=== PATIENT | female | born 1980 | race Caucasian/White ===

== ENCOUNTER 2020-04-15 07:08 | Day surgery (SDC) | payer OTHER ==
[2020-04-11 15:31] LABS: Absolute Lymphocytes (CBC) 3.6 K/uL (0.7-4.9); Basophils % 0.5 % (0-1.3); Hematocrit 40.5 % (36.0-45.0); Lymphocytes % 43.6 % (15.3-44.8); MPV 9.5 fL (7.6-11.3); RBC Red Blood Cell Count 4.53 M/uL (3.86-4.86)
[2020-04-11 15:51] LABS: Urine Appearance CLEAR; Urine Bilirubin NEGATIVE (NEG); Urine Blood 1+ (NEG); Urine Color YELLOW; Urine Glucose NEGATIVE (NEG); Urine Protein NEGATIVE (NEG); Urine Urobilinogen 0.2 mg/dL (0.2-1.0); Urine pH 6.5 (5.0-7.0)
[2020-04-11 15:55] LABS: Urine Microscopic Reflex ORDER UMIC
[2020-04-11 17:52] LABS: Urine Bacteria <20 /HPF (<20); Urine Culture Reflex Order NOT NEEDED; Urine RBC <5 /HPF (NONE SEEN)
--- OUTSIDE RECORDS SUMMARY | 2020-04-15 07:11 | XMS REPORT | Clinical Summary ---
:1980 Author Organization [facility] Address [address] [place] [address] Care Team Providers Name Role Phone Unavailable Primary Care Provider Unavailable Allergies Active Allergy Reactions Severity Noted Date Comments Ceftriaxone Anaphylaxis High 09/25/2013 Hydrocodone-Acetaminophen Shortness Of Breath High 10/31/19 20 Throat tightening Medications Medication Sig Dispensed Refills Start Date End Date Status citalopram (CELEXA) 20 Take 20 mg by 0 Active MG tablet mouth daily. fexofenadine HCl Take by mouth. 0 Active (JASS ORAL) cholecalciferol, Take by mouth. 0 Active vitD3,/vit K2 (VITAMIN D3-VITAMIN K2 ORAL) pantoprazole (PROTONIX) Take 1 tablet (40 60 tablet 3 11/29/19 20 Active 40 MG tablet mg total) by mouth daily. Active Problems Not on file Encounters Date Type Specialty Care Team Description 02/13/2020 Hospital Encounter Radiology Nestor Zimmerman, Abdom inal romel DEVINE 11/29/2019 Anesthesia Event Magalys Mayers CRNA 11/29/2019 Surgery Nestor Zimmerman, COLONOSCOPY ,POLYPECT MD WERNRE 11/29/2019 Hospital Encounter Nestor Zimmerman MD 11/26/2019 Hospital Encounter Pre-Admission Testing 11/02/2019 Outside Orders Central Scheduling Nestor Zimmerman Abd ominal romel DEVINE (Primary Dx) after 04/15/2019 Social History Tobacco Use Types Packs/Day Years Used Date Current Some Day Smoker Smokeless Tobacco: Never Used Comments: off and on since age 17, no oc casional Alcohol Use Drinks/Week oz/Week Comments Yes occasionally Sex Assigned at Date Recorded Not on file Job Start Date Occupation Industry Not on file Not on file Not on file Travel History Travel Start Travel End No recent travel history available. Last Filed Vital Signs Vital Sign Reading Time Taken Blood Pressure 103/59 11/29/2019 2:30 PM [employer] Pulse 65 11/29/2019 2:30 [facility] [employer] Temperature 37 C (98.6 F) 11/29/2019 2:00 PM [employer] Respiratory Rate 15 11/29/2019 2:30 PM [employer] Oxygen Saturation 100% 11/29/2019 2:30 PM [employer] Inhaled Oxygen Concentration - - Weight 91.6 kg (202 lb) 11/29/2019 12:32 PM [employer] Height 160 cm (5' 3") 11/29/2019 12:32 PM [employer] Body Mass Index 35.78 11/29/2019 12:32 PM [employer] Plan of Treatment Not on file Procedures Procedure Name Priority Date/Time Associated Diagnosis Comme nts CT ABDOMEN/PELVIS Routine 02/13/2020 10:55 Abdominal bloating Results for this WITH IV CONTRAST AM CDT procedure a re in the results section. REPORT OF 11/29/2019 1:58 PROCEDURE - PM [facility] ENDOSCOPY URL REPORT OF 11/29/2019 1:36 PROCEDURE - PM [facility] ENDOSCOPY URL TISSUE EXAM AP Routine 11/29/2019 1:23 Results for this PM [employer] [facility] procedure are i n the results section. UPPER 11/29/2019 1:00 Generalized ENDOSCOPY,BIOPSY [facility] [employer] [facility] abdominal pain COLONOSCOPY,POLYPE 11/29/2019 1:00 Generalized CTOMY PM [facility] [facility] abdominal pain after 04/15/[address] Abdomen/Pelvis with IV Contrast (02/13/2020 10:55 AM CDT) Specimen Narrative Performed At Addendum Begins [facility] REPORT STATUS:A Addendum: The study was was performed as CT entero graphy. The fluid noted in the small and large bowel is normal and not indicating enterocolitis. Signed: Kp Stark MD Report Verified Date/Time:02/13/2020 12:33:09 Reading Location: [facility] B1 C013Y CT Body R eading Room Addendum Ends FINAL REPORT ABDOMINAL AND PELVIS CT DATED 02/13/2020 CLINICAL INFORMATION:Abdominal bloat ing TECHNIQUE:Axial images of the abdome n and pelvis were obtained from diaphragm to the pubic symphysis with in travenous contrast. This exam was performed according to our departmental dose-optimization program, which include s automated exposure control, adjustment of the mA and/or kV according to patient size and/or use of interactive reconstruction technique. COMMENT: Liver and spleen are normal in size. There is diffusely decreased attenuation in the liver sugge stive fatty hepatic infiltrate. 3 cysts as seen in the segme nt 2 of the liver measuring up to 1.4 x 1.7 cm. Gallbladder is contr acted. No gallstone or biliary dilatation is noted. Pancreas and adrenals are unremarkable. Both kidneys are normal in size and func tioning. No hydronephrosis, hydroureter, urolithiasis is seen. Fluid-filled small and large bowel loops are seen in the abdomen and pelvis suggestive of enterocolitis. No s mall or large bowel dilatation or wall thickening is apparen t. Appendix is normal in caliber. The uterus is normal in size. A 5.3 x 4. 9 cm mass is seen in the left lateral wall of the uterus suggestive of subserosal fibroid. Both ovaries are unremarkable. No mass, adenopathy or ascites is presen t. IMPRESSION: 1. Findings suggestive of enterocolitis. 2. Uterine leiomyoma. 3. Fatty hepatic infiltrate with liver c ysts. Signed: Kp Stark MD Report Verified Date/Time:02/13/2020 12:11:20 Reading Location: [facility] C013Y CT Body R ding Room Procedure Note Interface, External Ris In - 02/13/2020 12:36 PM CDT Addendum Begins REPORT STATUS:A Addendum: The study was was performed as CT entero graphy. The fluid noted in the small and large bowel is normal and not indicating enterocolitis. Signed: Kp Stark MD Report Verified Date/Time: 02/13/2020 1 2:33:09 Reading Location: [facility] B1 C013Y CT Body R eading Room Addendum Ends FINAL REPORT ABDOMINAL AND PELVIS CT DATED 02/13/2020 CLINICAL INFORMATION: Abdominal bloatin g TECHNIQUE: Axial images of the abdomen and pelvis were obtained from diaphragm to the pubic symphysis with in travenous contrast. This exam was performed according to our departmental dose-optimization program, which include s automated exposure control, adjustment of the mA and/or kV according to patient size and/or use of interactive reconstruction technique. COMMENT: Liver and spleen are normal in size. There is diffusely decreased attenuation in the liver sugge stive fatty hepatic infiltrate. 3 cysts as seen in the segme nt 2 of the liver measuring up to 1.4 x 1.7 cm. Gallbladder is contr acted. No gallstone or biliary dilatation is noted. Pancreas and adrenals are unremarkable. Both kidneys are normal in size and func tioning. No hydronephrosis, hydroureter, urolithiasis is seen. Fluid-filled small and large bowel loops are seen in the abdomen and pelvis suggestive of enterocolitis. No s mall or large bowel dilatation or wall thickening is apparen t. Appendix is normal in caliber. The uterus is normal in size. A 5.3 x 4. 9 cm mass is seen in the left lateral wall of the uterus suggestive of subserosal fibroid. Both ovaries are unremarkable. No mass, adenopathy or ascites is presen t. IMPRESSION: 1. Findings suggestive of enterocolitis. 2. Uterine leiomyoma. 3. Fatty hepatic infiltrate with liver c ysts. Signed: Kp Stark MD Report Verified Date/Time: 02/13/2020 1 2:11:20 Reading Location: [facility] B1 C013Y CT Body R [facility] Room Performing Organization Address City/State/Zipcode Phone Number GE RIS REPORT OF PROCEDURE - ENDOSCOPY URL (11/29/2019 1:58 PM [facility]) Narrative Performed At This result has an attachment that is no t available. REPORT OF PROCEDURE - ENDOSCOPY URL (11/29/2019 1:36 PM [facility]) Narrative Performed At This result has an attachment that is no t available. Tissue Exam (11/29/2019 1:23 PM [facility]) Case Report Surgical Pathology Report Case: [id number] [facility] Authorizing Provider:Nestor Williamson MDCollected: 11/29/2019 1323 [facility] Ordering Location: [facility] ENDOSCOPY Received:11/29/2019 9509 SERVICES Pathologist: Chika Casey MD Specimens: A) - Duodenum , bx B) - Gastric, antrum body and incisura bx r/o h. pylori C) - Esophagus, random bx r/o eosinophilic esophagitis D) - Polyp, Colon - Left/Descending, r/o hyperplastic DIAGNOSIS A. DUODENUM, BIOPSY: [facility] - DUODENAL MUCOSA WITH PRESERVED VILLOUS ARCH ITECTURE [facility] - NEGATIVE FOR INCREASE INTRAEPITHELIAL LYMPH OCYTES - FOCAL PROMINENCE OF GORGE GLAND B. GASTRIC ANTRUM AND BODY, BIOPSY: - GASTRIC ANTRUM TYPE MUCOSA WITH REACTIVE G ASTROPATHY - GASTRIC BODY TYPE MUCOSA WITH MILD PARIETA L CELL HYPERPLASIA - WARTHIN-STARRY STAIN NEGATIVE FOR H. PYLOR I-LIKE ORGANISMS C. ESOPHAGUS, RANDOM BIOPSY: - ESOPHAGEAL SQUAMOUS MUCOSA WITH NO SIGNIFIC ANT HISTOPATHOLOGICAL CHANGE - NO COLUMNAR EPITHELIUM PRESENT D. POLYP, LEFT DESCENDING COLON, BIOPSY: - COLONIC MUCOSA WITH FOCAL HYPERPLASTIC PABLO GE SJ/pl Signing Pathologist Direct Phone Line: [phone] COMMENT No features of microscopic colitis noted. [facility] Endoscopic report reviewed. CPT Code(s) 17118 x4; 76198 x1 [facility] CLINICAL HISTORY Generalized abdominal pain, [facility] constipation [facility] ER SPECIMEN SOURCE A. Duodenal biopsy; B. Gastric C [facility] antrum body and incisura biopsy [facility] rule out H. Pylori; C. Random biopsy of esophagus rule out eosinophilic esophagitis; D. Left/descending colon polyp, rule out hyperplastic polyp GROSS DESCRIPTION The case is received in four parts labeled with the patient's information as [id number] which corresponds to the accompanying requisition slip. [facility] A. Received in formalin labe led with the patient's information and "A. Duodenal tissue" are multiple fragments of navarrete-pink soft tissue measuring 0.4 x 0.3 x 0.2 cm in aggregate. They are submitted in toto after filtration in cassette A1. B. Received in formalin labe led with the patient's information and "B. Gastric antrum body and incisura biopsy, rule out H. Pylori" are multiple fragments of navarrete-pink soft tissue measuring 0.3 x 0.3 x 0 .2 cm in aggregate. They are submitted in toto after filtration in cassette B1. C. Received in formalin labe led with the patient's information and "C. Random biopsy rule out eosinophilic esophagitis" are multiple fragments of navarrete-white soft tissue measuring 0.3 x 0.2 x 0.1 cm in ag gregate. They are submitted in toto after filtra tion in cassette C1. D. Received in formalin labe led with the patient's information and "D. Left/descending, rule out hyperplastic" are three fragments of navarrete to navarrete-white soft tissue measuring 0.3 x 0.2 x 0.1 cm in aggrega te. They are submitted in toto after filtration in cassette D1. SC/pl MICROSCOPIC DESCRIPTION Performed [facility] SPECIAL STUDIES The interpretation of this c ase included the use of immunohistochemistry or special stains. [facility] Control Slides Examined: In -house known positive controls were evaluated along with the test tissue. These control slides run alongside of the patients sample show appropriate staining. Internal posit paulette and negative controls when available are nisha burnette Immunohistochemistry technic al testing was performed at [facility], Pathology Laboratory where it was developed and its performance characteristics were determined. It has not be en cleared or approved by [facility] [place].S. Food and Drug Administration. The FDA has determined that such clearance or approval is not necessary. The test is used for clinical purposes. It should not be regarde d as investigational or for research. This laboratory is certified under the Clinical Laboratory Improvement Amendments of 1988 (CLIA-88) as qualified to perform high complexity clinical laboratory testing. Specimen Tissue Tissue - Esophageal and/or gastric struc tures (body structure) Tissue - Esophageal structure (body stru cture) Tissue - Polyp, Colon - Left/Descending Performing Organization Address City/State/Zipcode Phone Number [facility] [address] [place] [address] CENTER after 04/15/2019 Insurance Payer Benefit Plan / Group Subscriber ID Type Phone A frederic GARCIA xxxxxxxxxxx
--- OUTSIDE RECORDS SUMMARY | 2020-04-15 07:12 | XMS REPORT | Continuity of Care Document ---
:1980 Author Organization [facility] Care Team Providers Name Role Phone [facility] Unavailable Un available Problems Problem Status Onset Classification Date Comments Sourc e Date Reported Depressive Active Problem 08/09/2019 [facility] disorder Neuro (disorder) Dizziness Active Problem 08/09/2019 [facility] (finding) Neuro Headache Active Problem 08/09/2019 [facility] (finding) Neuro Migraine Active Problem 08/09/2019 [facility] (disorder) Neuro Simple obesity Active Problem 08/09/2019 Misc her (disorder) Neuro Medications Medication Details Route Status Patient Ordering Order Source Instructions Provider Date eletriptan 40 MG See No Longer [facility] Oral Tablet Instructions Active 019 Neuro [Relpax] , PO, Take 1-2 tabs orally at onset of migraine, may repeat dose once in 2 hours, X 3 day, # 9 tab, 1 Refill(s), Pharmacy: [id number] amitriptyline 10 10 mg = 1 No Longer Mis elder mg oral tablet tab, PO, Active 019 Neuro Bedtime, # 30 tab, 1 Refill(s), Pharmacy: [facility] [id number] Aysha 15 mg, PO, Active [facility] Daily, 0 019 Neuro Refill(s) citalopram 10 mg 10 mg = 1 Active Misch er oral tablet tab, PO, 019 Neuro Daily, # 30 tab, 0 Refill(s) Allergies, Adverse Reactions, Alerts Substance Category Reaction Severity Reaction Status Date Comments S ource type Reported Rocephin Assertion Drug Active [facility] allergy Neuro Hydrocet Assertion Drug Active [facility]isch er allergy Neuro Immunizations No Data Provided for This Section Results No Data Provided for This Section Pathology Reports No Data Provided for This Section Diagnostic Reports No Data Provided for This Section Consultation Notes No Data Provided for This Section Discharge Summaries No Data Provided for This Section History and Physicals No Data Provided for This Section Vital Signs Vital Sign Value Date Comments Source BMI Calculated 36.75 04/03/2019 [facility] Weight 94.091 04/03/2019 [facility] Height 160.02 cm 04/03/2019 [facility] Respitory Rate 16 04/03/2019 [facility] Heart Rate 69 04/03/2019 [facility] Systolic (mm Hg) 113 04/03/2019 [facility] Diastolic (mm Hg) 71 04/03/2019 [facility] Systolic (mm Hg) 98 11/22/2018 [facility] Dax ro Diastolic (mm Hg) 67 [facility]/22[facility] Rate 77 11/22/2018 [facility] Respitory Rate 16 11/22/2018 [facility] Height 160.02 cm 11/22/2018 [facility] Weight 90 11/22/2018 [facility] BMI Calculated 35.15 11/22/2018 [facility] BMI Calculated 34.79 10/18/2018 [facility] Weight 89.091 10/18/2018 [facility] Height 160.02 cm 10/18/2018 [facility] Heart Rate 64 10/18/2018 [facility] Respitory Rate 16 10/18/2018 [facility] Systolic (mm Hg) 98 10/18/2018 [facility] Dax [facility] Diastolic (mm Hg) 70 10/18/2018 [facility] Encounters Location Location Encounter Encounter Reason Attending ADM [place] Source Details Type Number For Provider Date Date Visit Outpatient [id number] JACOB 10/18 [facility] [place] [facility] Outpatient [id number] Jacob 10/18 10/19 [facility] [place] [facility] [id number] JACOB 11/15 [facility] Ambulatory [id number] Jacob 11/15 11/15 [facility] [place] Outpatient [id number] JACOB 11/22 [facility] Outpatient [id number] Jacob 11/22 11/23 [facility] [place] [facility]patient [id number] JACOB 01/02 [facility] Outpatient [id number] Jacob 04/03 [facility] Outpatient [id number] Jacob 04/03 04/04 [facility] [place] [facility] [id number] Jacob [facility]07 [facility] [id number] Jacob 08/07 08/07 [facility] [place] Procedures No Data Provided for This Section Assessment and Plan No Data Provided for This Section Plan of Care No Data Provided for This Section Social History Social History Date Source Social History TypeResponse 11/22/2018 [facility] Employment/School Status: Employed. 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 Smoking Status Former smoker; Type: Cigarettes; Exposur e to Tobacco Smoke None; Cigarette Smoking Last 365 Days No; Reg Smoking Cessation Counseling No entered on: 04/03/19 Family History No Data Provided for This Section Advance Directives No Data Provided for This Section Functional Status No Data Provided for This Section
--- OUTSIDE RECORDS SUMMARY | 2020-04-15 07:15 | XMS REPORT | Continuity of Care Document ---
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 Encounter/ Legacy 00:00:00 00:00:00 Visit Lesley Vasquez [id number] Lynnette [id number] [facility] 2019-08-07 2019-08-07 Outpatient Edgard, MHMISCHER MHMISCHER [id number] 10:00:00 10:00:00 [facility] 2019-04-03 2019-04-03 Outpatient Edgard, MHMISCHER MHMISCHER [id number] 10:00:00 23:59:59 [facility] 2018-11-22 2018-11-22 Outpatient Edgard MHMISCHER MHMISCHER [id number] 15:45:00 23:59:59 [facility] 2018-11-15 2018-11-15 Outpatient Edgard, MHMISCHER MHMISCHER [id number] 10:45:00 10:45:00 [facility] 2018-10-18 2018-10-18 Outpatient [facility] [id number] 10:00:00 23:59:59 Freddy 00 Sandeep 2018-07-13 2018-07-13 Office RejiAllie [facility] Encoun ter/ Legacy 00:00:00 00:00:00 Visit [id number] Com christel [id number] ty Health 2018-07-13 2018-07-13 Office RejiAllie [facility] Encoun ter/ Legacy 00:00:00 00:00:00 Visit [id number] Com christel 589263 ty Health 2018-07-13 2018-07-13 Office RejiAllie [facility] Encoun ter/ Legacy 00:00:00 00:00:00 Visit [id number] Com christel 590878 ty Health 2018-07-07 2018-07-07 Office Blair [facility] Encounte r/ Legacy 00:00:00 00:00:00 Visit Riana [id number] Com christel 772156 ty Health 2018-07-07 2018-07-07 Office Abdoul [facility] Encounter/ Legacy 00:00:00 00:00:00 Visit Gisele [id number] C ommuni 873258 ty Health 2018-07-06 2018-07-06 Office Wilfrid [facility] Encounter/ Legacy 00:00:00 00:00:00 Visit Minnie [id number] Com christel 030958 ty Health 2018-07-06 2018-07-06 Office Wilfrid [facility] Encounter/ Legacy 00:00:00 00:00:00 Visit Minnie [id number] Com christel 079990 ty Health 2018-07-06 2018-07-06 Office Wilfrid [facility] Encounter/ Legacy 00:00:00 00:00:00 Visit Minnie [id number] Com christel 228000 ty Health 2018-07-05 2018-07-05 Office Wilfrid [facility] Encounter/ Legacy 00:00:00 00:00:00 Visit Minnie [id number] Com christel 753388 ty Health 2018-07-05 2018-07-05 Office Wilfrid [facility] Encounter/ Legacy 00:00:00 00:00:00 Visit Minnie [id number] Com christel [id number] [facility] 2018-07-05 2018-07-05 Office Wilfrid [facility] Encounter/ Legacy 00:00:00 00:00:00 Visit Minnie [id number] Com christel [id number] [facility] 2018-07-05 2018-07-05 Office Wilfrid Minnie [facility] Enc ounter/ Legacy 00:00:00 00:00:00 Visit Zackary Gunn [id number] Communi [id number] [facility] 2018-07-05 2018-07-05 Office Wilfrid [facility] Encounter/ Legacy 00:00:00 00:00:00 Visit Minnie [id number] Com christel [id number] [facility] 2018-07-05 2018-07-05 Office WilfridMinnie [facility] Enc ounter/ Legacy 00:00:00 00:00:00 Visit Reji Allie [id number] Communi 957002 [facility] 2018-03-14 2018-03-14 Office Donavon [facility] Encoun ter/ Legacy 00:00:00 00:00:00 Visit Aydee soler [id number] Tim dockery LPC, [id number] [facility] 2018-02-01 2018-02-01 [facility] 00:00:00 00:00:00 Visit Aydee soler [id number] Tim dockery LPC, [id number] [facility] 2018-01-16 2018-01-16 Office KarlTacho [facility] Encoun ter/ Legacy 00:00:00 00:00:00 Visit Aydee soler [id number] Tim dockery LPC, [id number] [facility] 2017-10-26 2017-10-26 Office Hali [facility] Encoun ter/ Legacy 00:00:00 00:00:00 Visit Mercedes trejo [id number] Co mmuni [id number] [facility] 2017-10-25 2017-10-25 Office KarlTacho [facility] Encoun ter/ Legacy 00:00:00 00:00:00 Visit Aydee soler [id number] Tim dockery LPC, 729105 [facility] 2017-10-18 2017-10-18 Office Donavon [facility] DIANELYS Encoun ter/ Legacy 00:00:00 00:00:00 Visit Aydee soler [phone] Tim dockery LPC, [id number] [facility] 2017-10-18 2017-10-18 Office Aydee Jimenez LPC, Tier ra [facility] Encounter/ Legacy 00:00:00 00:00:00 Visit Chito Wright [id number] [facility] [id number] [facility] 2017-10-05 2017-10-05 [facility]/ Legacy 00:00:00 00:00:00 Visit Mercedes Vazquez [id number] [facility] [id number] [facility] 2017-08-09 2017-08-09 Office Riana Pinto [facility] En counter/ Legacy 00:00:00 00:00:00 Visit Yogi Hines [id number] [facility] [id number] [facility] 2017-08-08 2017-08-08 Office Aydee Jimenez [employer], [facility] ra [facility] Encounter/ Legacy 00:00:00 00:00:00 Visit Joycelyn Bass [id number] [facility] [id number] [facility] 2017-07-20 2017-07-20 Office Donavon [facility] DIANELYS Encoun ter/ Legacy 00:00:00 00:00:00 Visit Aydee soler [id number] Tim dockery LPC, [id number] [facility] 2017-05-24 2017-05-24 Office HUMBERTO Villeda Encounter/ Legacy 00:00:00 00:00:00 Visit Addy [id number] [facility] [id number] [facility] 2017-05-24 2017-05-24 Office Addy Villeda Enc ounter/ Legacy 00:00:00 00:00:00 Visit Nayeli Lemons [id number] [facility] 218030 [facility] 2017-05-09 2017-05-09 Office HUMBERTO Richard Encount er/ Legacy 00:00:00 00:00:00 Visit Tamara [id number] Com christel [id number] ty Health 2017-05-02 2017-05-02 Office Minine Yuen Enc ounter/ Legacy 00:00:00 00:00:00 Visit Lani Snell [id number] Tim Chandrika Rios 052444 ty Health 2017-04-27 2017-04-27 Office Minnie Yuen Enc ounter/ Legacy 00:00:00 00:00:00 Visit OsborneAsya calvert [id number] Tim NietoJuan castillo 298103 [facility] 2017-04-27 2017-04-27 Office HUMBERTO Yuen Encounter/ Legacy 00:00:00 00:00:00 Visit Minnie [id number] Com christel 147310 ty Health 2017-04-27 2017-04-27 HUMBERTO Rocha Encounter/ Legacy 00:00:00 00:00:00 Visit Minnie [id number] Com christel 742142 ty Health 2017-04-22 2017-04-22 Office HUMBERTO Yuen Encounter/ Legacy 00:00:00 00:00:00 Visit Minnie [id number] Com christel 096857 ty Health 2017-04-22 2017-04-22 Office HUMBERTO Yuen Encounter/ Legacy 00:00:00 00:00:00 Visit Minnie [id number] Com christel 591419 ty Health 2017-04-22 2017-04-22 HUMBERTO Rocha Encounter/ Legacy 00:00:00 00:00:00 Visit Minnie [id number] Com christel 599897 ty Health 2017-04-20 2017-04-20 Office HUMBERTO Villeda Encounter/ Legacy 00:00:00 00:00:00 Visit Addy [id number] Com christel 638487 ty Health 2017-04-20 2017-04-20 HUMBERTO Rocha Encounter/ Legacy 00:00:00 00:00:00 Visit Minnie [id number] Com christel 772373 ty Health 2017-04-20 2017-04-20 Office HUMBERTO Yuen Encounter/ Legacy 00:00:00 00:00:00 Visit Minnie [id number] Com christel 935867 ty Health 2017-04-20 2017-04-20 Office WilfridHUMBERTO Encounter/ Legacy 00:00:00 00:00:00 Visit Minnie [id number] Com christel 214125 ty Health 2017-04-20 2017-04-20 Office WilfridMinnie Enc ounter/ Legacy 00:00:00 00:00:00 Visit Riana Pinto [id number] Communi 022223 ty Health 2017-04-20 2017-04-20 Office Addy Villeda Enc ounter/ Legacy 00:00:00 00:00:00 Visit Gwen Blackwell [id number] Communi 957296 ty Health 2017-04-15 2017-04-15 Office Sharla Mike En counter/ Legacy 00:00:00 00:00:00 Visit Sandor Bennett [id number] Communi 995253 ty Health 2017-04-15 2017-04-15 Office HUMBERTO Bennett Encounter/ Legacy 00:00:00 00:00:00 Visit Sandor [id number] C ommuni 072661 ty Health 2017-04-13 2017-04-13 Office HUMEBRTO Yuen Encounter/ Legacy 00:00:00 00:00:00 Visit Minnie [id number] Com christel 557827 ty Health 2017-04-13 2017-04-13 Office Minnie Yuen Enc ounter/ Legacy 00:00:00 00:00:00 Visit Riana Pinto [id number] 4211 Communi Tamara Richard 13495 0 ty Health 2017-03-17 2017-03-17 Office Addy Villeda Enc ounter/ Legacy 00:00:00 00:00:00 Visit Gwen Blackwell [id number] Communi 283535 ty Health 2017-03-17 2017-03-17 Office HUMBERTO Villeda Encounter/ Legacy 00:00:00 00:00:00 Visit Addy [id number] Com christel 709137 ty Health 2017-03-17 2017-03-17 Office HUMBERTO Villeda [facility] Encounter/ Legacy 00:00:00 00:00:00 Visit Addy [id number] Com christel 945625 ty Health 2017-03-17 2017-03-17 [facility]/ Legacy 00:00:00 00:00:00 Visit Nayeli Lemons [id number] Communi 162857 ty Health 2017-03-11 2017-03-11 Office HUMBERTO Fonseca Encount er/ Legacy 00:00:00 00:00:00 Visit Gladys [id number] Com christel 883051 ty Health 2017-03-11 2017-03-11 Office HUMBERTO Fonseca Encount er/ Legacy 00:00:00 00:00:00 Visit Gladys [id number] Com christel 321723 ty Health 2017-03-11 2017-03-11 Office HUMBERTO Fonseca Encount er/ Legacy 00:00:00 00:00:00 Visit Gladys [id number] Com christel 111105 ty Health 2017-03-11 2017-03-11 Office [facility] En counter/ Legacy 00:00:00 00:00:00 Visit Sherrill Galan [id number] Communi 944082 ty Health 2017-02-17 2017-02-17 Office HUMBERTO Mederos [facility] Encounter / Legacy 00:00:00 00:00:00 Visit Aravind [id number] Com christel 794182 ty Health 2017-02-17 2017-02-17 Office Aravind Mederos [facility] Enco unter/ Legacy 00:00:00 00:00:00 Visit Marybeth Bennett [id number] Curt Aguiar 951833 ty Health 2017-01-26 2017-01-26 Office [facility] / Legacy 00:00:00 00:00:00 Visit Thomas [id number] Com christel 124684 ty Health 2016-12-13 2016-12-13 Office [facility] En[facility]/ Legacy 00:00:00 00:00:00 Visit Hernandez [id number] Com christel Provider 218409 ty Health 2016-12-13 2016-12-13 Office Luma Collado DIANELYS Encounter/ Legacy 00:00:00 00:00:00 Visit Lani Snell [id number] Communi 143375 ty Health 2016-12-08 2016-12-08 Office HUMBERTO Darby Encounter/ Legacy 00:00:00 00:00:00 Visit David [id number] Com christel 099733 ty Health 2016-11-15 2016-11-15 Office HUMBERTO Garcia Encounter/ Legacy 00:00:00 00:00:00 Visit Eddie [id number] Com christel 425757 ty Health 2016-11-15 2016-11-15 Office HUMBERTO Darby Encounter/ Legacy 00:00:00 00:00:00 Visit David [id number] Com christel 218924 ty Health 2016-11-15 2016-11-15 Office HUMBERTO Humphries Encount er/ Legacy 00:00:00 00:00:00 Visit Katheryn [id number] Com christel 583633 ty Health 2016-11-15 2016-11-15 Office Eddie Garcia Encou nter/ Legacy 00:00:00 00:00:00 Visit Lani Snell [id number] [facility] Tamara Richard 12084 0 ty Health 2016-11-10 2016-11-10 Office HUMBERTO Collado Encount er/ Legacy 00:00:00 00:00:00 Visit Luma [id number] Com christel 733535 ty Health 2016-11-10 2016-11-10 Office DIANELYS Collado DIANELYS Encount er/ Legacy 00:00:00 00:00:00 Visit Luma [id number] Com christel 003559 ty Health 2016-11-10 2016-11-10 Office Luma Collado DIANELYS Encounter/ Legacy 00:00:00 00:00:00 Visit Debby Humphries [id number] Communi 143079 ty Health 2016-10-26 2016-10-26 Office Eddie Garcia Encou nter/ Legacy 00:00:00 00:00:00 Visit David Darby [id number] Communi 389175 [facility] 2016-10-15 2016-10-15 Office Heaven [facility] Encount er/ Legacy 00:00:00 00:00:00 Visit Luma [id number] Com christel [id number] [facility] 2016-10-15 2016-10-15 Office Reinaldo [facility] Encounter/ Legacy 00:00:00 00:00:00 Visit Jonny [id number] Com christel [id number] [facility] 2016-10-04 2016-10-04 Office Jose [facility] Encounter/ Legacy 00:00:00 00:00:00 Visit Eddie [id number] Com christel [id number] [facility] Results Test Description Test Time Test Comments Results Result Sourc e Comments CT, ABDOMEN 2020-02-13 Addendum 12:33:00 BeginsREPORT STATUS:A Addendum: The study was was performed as CT enterography. The fluid noted in the small and large bowel is normal and not indicating enterocolitis. Signed: Kp Stark MDReport Verified Date/Time: 02/13/2020 12:33:09 Reading Location: [address] Body Reading RoomAddendum EndsFINAL REPORT ABDOMINAL AND PELVIS CT DATED 02/13/2020 CLINICAL INFORMATION: Abdominal bloating TECHNIQUE: Axial images of the abdomen and pelvis were obtained from diaphragm to the pubic symphysis with intravenous contrast. This exam was performed according to our departmental dose-optimization program, which includes automated exposure control, adjustment of the mA and/or kV according to patient size and/or use of interactive reconstruction technique. COMMENT: Liver and spleen are normal in size. There is diffusely decreased attenuation in the liver suggestive fatty hepatic infiltrate. 3 cysts as seen in the segment 2 of the liver measuring up to 1.4 x 1.7 cm. Gallbladder is contracted. No gallstone or biliary dilatation is noted. Pancreas and adrenals are unremarkable. Both kidneys are normal in size and functioning. No hydronephrosis, hydroureter, urolithiasis is seen. Fluid-filled small and large bowel loops are seen in the abdomen and pelvis suggestive of enterocolitis. No small or large bowel dilatation or wall thickening is apparent. Appendix is normal in caliber. The uterus is normal in size. A 5.3 x 4.9 cm mass is seen in the left lateral wall of the uterus suggestive of subserosal fibroid. Both ovaries are unremarkable. No mass, adenopathy or ascites is present. IMPRESSION: 1. Findings suggestive of enterocolitis.2. Uterine leiomyoma.3. Fatty hepatic infiltrate with liver cysts. Signed: Kp Stark MDReport Verified Date/Time: 02/13/2020 12:11:20 Reading Location: [facility] B1 C013Y CT Body Reading Room Abdomen/Pelvis 2020-02-13 Interface, External [facility] with IV Contrast 12:11:00 Ris In - 02/13/2020 - Medical 12:36 PM Center CDTAddendum BeginsREPORT STATUS:A Addendum: The study was was performed as CT enterography. The fluid noted in the small and large bowel is normal and not indicating enterocolitis. Signed: Kp Stark MDReport Verified Date/Time: 02/13/2020 12:33:09 Reading Location: [facility] B1 C013Y CT Body Reading RoomAddendum EndsFINAL REPORT ABDOMINAL AND PELVIS CT DATED 02/13/2020 CLINICAL INFORMATION: Abdominal bloating TECHNIQUE: Axial images of the abdomen and pelvis were obtained from diaphragm to the pubic symphysis with intravenous contrast. This exam was performed according to our departmental dose-optimization program, which includes automated exposure control, adjustment of the mA and/or kV according to patient size and/or use of interactive reconstruction technique. COMMENT: Liver and spleen are normal in size. There is diffusely decreased attenuation in the liver suggestive fatty hepatic infiltrate. 3 cysts as seen in the segment 2 of the liver measuring up to 1.4 x 1.7 cm. Gallbladder is contracted. No gallstone or biliary dilatation is noted. Pancreas and adrenals are unremarkable. Both kidneys are normal in size and functioning. No hydronephrosis, hydroureter, urolithiasis is seen. Fluid-filled small and large bowel loops are seen in the abdomen and pelvis suggestive of enterocolitis. No small or large bowel dilatation or wall thickening is apparent. Appendix is normal in caliber. The uterus is normal in size. A 5.3 x 4.9 cm mass is seen in the left lateral wall of the uterus suggestive of subserosal fibroid. Both ovaries are unremarkable. No mass, adenopathy or ascites is present. IMPRESSION: 1. Findings suggestive of enterocolitis.2. Uterine leiomyoma.3. Fatty hepatic infiltrate with liver cysts. Signed: Kp Stark Verified Date/Time: 02/13/2020 12:11:20 Reading Location: [facility] C013Y CT Body Reading Room Tissue Exam 2019-12-03 11:58:00 Test Item Value Reference Range Interpretation Comme nts Case Report (test code = 104) Surgical Pathology Report Case: [id number] Authorizing Provider: Nestor Zimmerman MD Collected: 11/29/2019 1323 Ordering Location: [facility] END[facility]COPY Received: 11/29/2019 1557 SERVICES Pathologist: Chika Casey MD Specimens: A) - Duodenum, bx B) - Gastric, antrum body and incisura bx r/o h. pylori C) - Esophagus, random bx r/o eosinophilic esophagitis D) - Polyp, Colon - Left/Descending, r/o hyperplastic DIAGNOSIS (test code = 3220) l1kicTHnXHTuw5lcISUjyDUmSvVwKlQdKrZnSu pcdW DgGErnazIkKXezu4KaY0RsJjBlXZojuaIgRZKeUelv riprYCNnKIL7nzMaUCPuYRxdINHsCSjxRb3hcROwqN ctHbJfRUQwh1azgpUHdcirtHi5k2etCVAeFpS6wLXt ORkrV0avxjWpaWNyUSWyBEk7zC02PJYhfY6wrCQzEP mgpiUjMoY5ITwtDLXrNgS6CXStoIUrJLPjE1haRRSp HQelHUUzGNfyeUYtNXC9dMinf4T4rPFztTHbnUyxBq MuFoJaBJMFi0KzBFk8cDyoZ3ScYZMcDpN6pWPfCLFi BYleYTMiTYFenfT4pV15TWgmfmY2kKJaz5Vqv37dl2 84nC1aoEElFPM0GNWkFDSfmNAfBINoIBN9AJTxtILm Y9h4CeAfzCVyP3B7VpYwyFMlJ0A2YgEuuSTwA7E8Bc KiwTYaYHExcGGpDo5akTVjjRNnns9svh98BIL4i8Rn eXllMQR4BBJ1JnAhMf3hxBVqVAKnEM0pXyNrsCTuQE Ecyf44fCqmUGtgdjOiqD3vZwHaNEGgcCNtTQRgNL1a sUVmHEHkvA4bqpgvOYRzRbNbtkqzHNLilXoocmYzMz 2fsXnrNFX9WWvkO9eerI9cLfH3DQpgV9cftR8cWHp4 AHwehMX6MCCbeK1dPD4bkvbzn6axMsAnXE6mtgyia0 dgDoMoHL8pvby1g0mxFrWsTS7qbresa4ysCjDbWKtn TMHwdeghDBDxn7BvobksSMZdt7PdT3CqwXrxM25voX dkF46fZSPqkOomqK8zeJlcuL8nOgHuDtNlWEmhiUlu eZMtgvkuWExafgMdDTjzjradGOJgRWzeP0ecFdMiGC UgmGwaQJrzg7MvMLRtRXDlUyNcQZ2zRQUKPVXRMJ5d VQFUV8QTLEziqKNxBJMrAU9uLYLWYWQNECxbXLXDR7 HSCTpXETaxVDMZB2GWAeXIRRQSMCjWPNYdVGJEAGaF OFOSMZMMLXZtlqKxEX5tHS4BZ3AIWWEJMKSOCyVLCy MFTFPOAYXAQnLKAZJTSIAHDKvKMRczDRqXFGzLT6fA IBRtZITwmcAdIKSgEICQD5ZWMHYBQ47NOrYKT3CpW6 UsXiCGPl3TYqQXAOQIIMhfGENdsROuGZZdXRyGO6YC KMDaAG5VCfCIEYBVDPTRT2FZOPSRLL5VQ8u2EKNxxb IsSEEfATTUWWVNRxnZUTLNQVAFVPAPFHNZOF8CE24V RBGCXQQBWQXANLHQPCIHKMtLF8LCA3HUSVwJMGNbgy CaKANfCZMKHJIIJsvYONOGXXwnCZlNYBMHJHOYB7Oo O3wIDSPENSuUJBAOQqjHLYJKDANIWNxlFKnHXMUPLK LFZCFirTZcKRGsKSSbMLsDVoTFUY3jF3GVUfFDODTD PDgSJI8FI8XTWCHDKUAOXnHBIkHMQYjGHqokTDjZFL RQUpvWPxzFBPTzgSLsHMPfivGMFtLLB65FRSWHYGRz LKJIIbSHHKTCEY3EZ7x3OZCnatWaIXHwIDYAX9IIVN oEMYfrT1ZDVR7ICWKzROJQC2KAZRqHEBfkQr6zI3lV IisNTMHYRnXlAIrCNT7SICXZK0oZH9fRACjoG5iBFi fGCYQqqmWpWLPeXG0BREPAWWNUUzASMKBIEKQXNPzW BL8jSDQLP6SLIKptRSSitOVvLKYgZWCJZOpUPODkOD QEAWSLVOHIJG9FIK9LZYFNRQ6VOBUYQN5MZ8u7DYYn ewSdUVKpAZAHWV4JWDHxKJDOG5YXXKsZMOufRq3FBN slGBrDVPAGTSRZWPwFEIALUO0PUIunHQZpzUBpMHTW B0UdBIDhaw64AYZ8EgOxr6I7KRY7ELOyNCRtp4fkPQ TamTVdFzWkTvQlSsJwBxocoELjSBJkStVbh4kab209 cXMmm5siIMVrKeI6nIAoRFFgzMNeV610PZGkNKuqa0 flg7JuAOUnvZOmw4I5LOLBxkmrvOl8jPpdG72wo9N0 KgpgU8loWBGlLDOfI4MtGD5jZNHbLdp2UCO5QHB0GT ArZARfE2EjAY5yACIsxRTuGWo0w2wlhTdtHIAbPZD3 k8qmVJuvwnNkAM1tol0nzQf6f1mhprBdJLEvVEWxkI THWSZfH5KdkFgyIi8pxQf8kDbuDmboNTN3Tzy1WA1u lo09xmw5bAmxBFRseeizTyJ4CUtiOHRnsnakDXm2JA qgKCJmhQH0VNIqqIYjG4TjIZOvXD9qwoj8QGV9POum UBYoPiR4FKCgiULoJRDdsXypJQupi056MEG8JkJhXS 7jR0Unh8U1qN9wdZCcIGQrdPTvTvGkAXIbbz6zgCQu LKtyz7VkRTP1nrM9qFOkqQBoDHHpOzZ9SSrqGS7dkp 07GOUuPBZ6gb3akVImiBtxugLqtDNhQQksD3LcWHZc r787TIZpE1HyXIDax8Z7xlRgKuRaGWWuvTQ3tdL3SU UoTC3xrwhbn6hpIHjkENwxHPSqouZ3rmG1QLZibAId Z3HanV7hEKRcNP5krtrwu9ixKVL7IUonANKxWCA9Gv VwMNPuc7Bxpiy6EjMog1HmpWXnGIgiH64sq019BXOg cqVxS8ttdUXzsfmqoIKncqgtPHrmpmX6QHMqFSdkpk ibFGMeCZgxN8yvUdNeBBJctCfsWTtli4CjTRDhPMHe JaNktPEdENZsGyx9PCHknBXuHPQzLoYiN0zslnqbHz WIPDGky0ulI5agsDOEbLZeC2SdABccbnLkWAoxKUxv GTM8JGU3Bg05SeA0MUJxkj38 COMMENT (test code = 3359) h9pqlJWnTBYtgKVhPoTbTDDkRJJnq1ymKHLwaMUa Zz LtFnDxWkCnNrhsjMQlVOMoZjOzn6zxx638fLWsl1mk HNLwDvD5jXPtNHZpdQKnW872HSGfPOlgi8lbj9WrLN IwbHUbs0D1TWLZsqafcGy1cEokB70yq6C1SdreA6wk OACdKAydRJCqBRsgnPJhBQU6ENAlPWL6SJcoffUvda L9KIasuVPgXhD9IFv3q0ngqBgqYSZzGGN6k8bbQFju ogDuTB9frv2elQk4n9zzxpZpITXmABIjnDSMFQCxL4 BmoWswXo4tgVr6lIwfBazdTHX1Mih6DS4hyy24aps8 zNcoIVLqqkfmXcJ9QTdgZBNkrhetTEq2ALexSKWlzY cyMFxtYXJncjcyMFxtYXJndDcyMFxtYXJnYjcyMFxo YDGoJRZ4JKrba025DHX7IIvzh1aux3pckFZqCer8NP RdMpUlLpwtOXqzw0Tmo2zcSMZpjp4lNJL8xHFuxQsc s6B7jKUpQBXsxSOmswFdLBHzGbL3FJqzOQ5yzb44OE AqDLU6ny9qeNScjFsnunYkdQMbHAbwJ9KvUDOyo217 SBFmS4ZnXPGth5Y6xjLsCbNeWJDenLL9dnE3AUOhOW p7yMPpneX4czUgaOTfQ4sndK08DhFreXUpC5HbpL44 FuNufOUiC1BkeT90PyBqgBVjC3JbwN99WrKctIOyHX HcxHGwVu4ilIMvmQVar4NanASdUFlkA98wy531MBHl mwUmE9nfeMWhkcmpaNBuzxhwDIftacWaZKCyTXMbJJ qoZJWpRKFxFlJypMkitH7zZrAmYoQxOXXVpwQyWPZ4 uCIquzOtRmIhcFTuy0Sdr5EkVuDjz5xzxCcxYC6nbJ WtFhMmbIFqOBKmiydbbFMrqrqzIXhrjhYvCMMxAW2x H54kkYCnkvFdn8K9IRYeppuks7VnBmcfoXMhyhzyRQ xmczIwICBccGFyfQ== CPT Code(s) (test code = 3357) e8odgYXvJHRpuQQbVyIpXNKuSIHgf4jdGJRh bGFuZz XfAeZsIeFvDiedsCFwBUEpQdYsx7spl708xFNun2id RGKxCnD9xCKtATEmpXLwW904WJSiTFcvt2jik2PpFK SurHGki7N6FEUFsweczYa2dLlbR56nx0X1CsyjJ7mt XZDeQXVrD1PoSO4pANKxXfx7OGH9IXB1GLFfROMdS7 VwVW7cUJLsiQFqIFx2x5auzNooGONhQDZ5w5fjBRpt egExOD2yoz1eoPi0f3hiwpIyNUMuITKpjPKHUNSyY0 UbbKwsUp4unIg6gPvaHxjlYBR7Uke6IB6erp34ope8 hBdnOVJchwrmOkL2JNzbGWJuejojCBm6ZOrwRBIjbO cyMFxtYXJncjcyMFxtYXJndDcyMFxtYXJnYjcyMFxo SIQeBSJ0EOwdk158YEL6MZdbq8qyf9hsiDTfHgm0NC GfAgJaBkddSErlw6Tns5ztWHElpb0wXAF7mDOmlPmi s0L2hTBpOONvwSLvgdNbRNJqSoZ9YWvtHY6fwo22SX KtNUO0bt7kgTChmMfovaXnyBUvZGjtJ1VdGVLzo511 CCXlQ9DxOLZzw5J1ibXzCjMsVDXgvQC3iyA7MCTpKM u3yJBghdU1owKgcVQqW2hktZ67EwInuBGgU9FliJ75 NkEfaSDiW9ClxB15XqTyxDYmV9YsuO73MkFofIQbQM YazWYsGi4czYLxhAXjg8IadJWaNYxuH95vt809XRRt jjMoK6buvRKtaphvbDJppkcfHAlsadT0GQPrNCAoVF luXGYxXGZzMjBcbGFuZzEwMzNcaGljaFxmMVxkYmNo STXcYDhaF1cyNqKfTkVyJJS3VVVpRPB1TSaoMAwtLR IgeDFccGFyfQ== CLINICAL HISTORY (test code = 3356) w2bmfHDaGMMpjSFiPxLxCZXdBTUr w9pfXLHcyBVcDf MuZdJvZeLqDhzoqEDkITNaIqWcb7wja164iMWjx3yv DTWdEhA4oAXnALHymAPeT042BAMjQRrsf3gjp4LnPX VrjZThs9F6NSGJphgkdIe0oGkjA33fd9S7RpdfH8da RUZmKXzcJUFjAAbnsDAyTJX6IAWvQVR8ZNszqfDkuy N7HZtlyQAxXzM9XHr8c0dylWhmFPOiUCO3n9bzSAne fgUyCS5xot6aeWt2n2utbuNyFIZtJSQsbMQXTMTpH7 XroDgfWy9qhYn4oMxjRpzoXTT9Fxj3FM7ruk23oba8 eEpgVHEthmrvYmX0TVacOBDpxnarTEz3NSnzBYQrsX cyMFxtYXJncjcyMFxtYXJndDcyMFxtYXJnYjcyMFxo YWAzKHI8UClgq702GRX3VItpe1sbp7nvuGCsTql4JV LzMdQsSzduSHddr3Mrp7hkARXoaq4iGUQ6wYRxiPlb y2H8gXFxRBSavELutmHeKPEwKbA9YBkwRM1ooq80BC PoEVE5lr7igBGxrZgcyyZwrGScLBvaH6ZaHNWtl773 TXNkL3ZsUQAev5X0keOrThTqJCPsqMC6kyL4FVBsVN b7dOXhuoB8leNorFKpL1svfM77DbQurXKzC4EjiD75 KiSusINsU3UntE07JuFtkLRrD4EijC35FqUvhNOhZE MqhGQrTj3eyQYakMTts9WqfXEmKLprY48ar212GPUf hdGwV5bqiDUdkgceoLBuaosiXZxciiVkOTEbEROmDZ lfITXeVBAaRwLbyEaxtK4aRcOuAjAfHAJCXK4adcKe kNovVZAulYyfuT8fZhEdYoJgCLUaFbJavGuvZNkfxC XptfmkwDCpifbuBRpyhaTwASdhA18mq6MclNI5qD4q XHBhcn0= SPECIMEN SOURCE (test code = 3377) e7jiqPVrDPErePUmTaSiCIVnWURmc1um ZGVmbGFuZz UtXlYzZtNxRcuhqRIzTONtQaPzp3gdv264lOSde8qy TUAlQhM3oTOwVWBqwBWfB061FZRgYJklj9pzz5ZwCP DcuLInd6X4ERILryuavEx2jBqoW68is2K8WyhlN7hq LRQqPXbnJZUnVQjasFUnGEG3CRTnBZT3NHpwlmXsmu O1CIpzvBBdUgX8GTf5k2ezkUfrXBDwYMD6u1euPGcl rgIpZY9qxf0woXq5y7ybcaHyOPMoFHKchNFIJXTeU6 TapLweSp5lxIm3xHnkPxxdYEU3Iqd7IO3tsx60trr3 qZjrCJYwbnkoKhT1JZqjOFHwppwgUMr4WSvdWWNpoY cyMFxtYXJncjcyMFxtYXJndDcyMFxtYXJnYjcyMFxo ZYSqEVM5GYibp879QYX5PPxkb1zen6gmtJPmQdx7PX HhUoWyVdsjAEmmd6Hul5onBQQkng9hBSH9sCZegXfg b3D8mYEfIXVkxYWthpRvFLNfDgA9AUvvBN4ooq79UI HcDZU6dv1gqRPkzLrhtaBypOOsXWfmM5FnRAVqd874 IOExO1MsNTRtu3V5xsLjNfJdGBWoxPC0vyC2CWYcFO y4gQGmvjJ2ggBdpHUxL3gxhT40OoWajLJwU3HxwD66 TpSjbSJyR9XshM47CcTaqFZjE6CkrG58SuJswUHvGX YrpBIjLp2rdDNtlGHpf8ZdxJYxWYloC09kv092TNKd yoPsA3spnCVqqznqwYVarwkrAXavqtJiHYLvTSOvTJ jwDUAtSFTcAjVduAokpX5jLcAeHxZaYPAZOsMXtU1w LB1rjQOtkHohsO3kTaBjBnZmKYThdJ4bx2ubwVnkjS 2pThKeBnPqTDM8HUExHDulp3KvlYHgCH39okMdGQEa MKohEH1nIKdbD4oltIOmSKZwn2GzxKNocJgfBI90fB UYTgMJmHikikw8SJUQXbHJDC0qg59xJZPjGIkrXVKi XLEkMzNjXpgcwPP5QTObQXeqIYTyWMOvRbKrCD8sHS gpaTLqiyorHUjmazJtFOKrd4EuGCx2s1guxMObfnit AReyjwYhABSiuAufYD24mHHdp4Ueun7jmOdulYAeIL FhjLlyE3r2dVB1HUXkZKknNuLiNSNsK0NjKJqjGbXk u2xxaeRwpWklzD8jZtDyMuXtUFCul4c3nCgftOBivs xmMFxmczIwICwgcnVsZSBvdXQgaHlwZXJwbGFzdGlj IFxwbGFpblxmMVxmczIwIHBvbHlwXHBsYWluXGYwXG ZzMjAgIFxwYXJ9 GROSS DESCRIPTION (test code = 3366) f9abyNIuRJQtcDGgJnHrFKG lERKsn8ikAHWuqVAkGo PpZrAbWpYcIwyzuKFtRVZuPzLhm9smg122iXFvo6uy RAOzMoL1dDWnIVYktQJdQ474MPXkQHcyu7vzu9CaPI ZcyTLyo4P0UQFZcjptgVo4uNoiA92rx2L9HiupC8nk AXEtCKbvUKEvIZpvoGZwTGP8EXJeIFM5WHciumFfkv C6MWdeuVMqRkD0TVh9u0oahChwYVNrLGG8o6crFCyg exSpUD1jbb7quIy1c7chrtJeYIAqKJPngTBRNUXjD6 SwkMujMi5mpLe7qHwxXrefASP1Yjy9EH5kgs44rvj9 kVtqGBPzjiknZaM1CYxjNXUrpbniDOz6TThvCESwwZ cyMFxtYXJncjcyMFxtYXJndDcyMFxtYXJnYjcyMFxo APEgART6JYrsk296XID8FAvcp3mtq0qawRZpJcz0RN FxWwKeEpqwEPxdj6Mzp5lvAGGqwx5gDVR4iOMakIlt g8F1pGVqEUXpuJRtlaUoOCMtEcB8QDfzRL2ymi53HG DfMDY0xw1ebESswFdlioVbyVFjOHmdO5FiGHDao297 SGKzB2HkXXLxb1S0wbYhAvTfMUMpjCO5dvB8MGAyOZ j2zBCxcjI1wbLouLUbN0gnuS28ZvPvkHTqU3KyxF12 HqSojZUcY8WtbN97YhXceQHdU6FgrN05LsJiaABfCX GarTJtCk0exBVygCUec2TmhMOjBJgnN14kc816UXUm ajZhH0tddPWivcbusIYosoqkSRroseElLAVlDQAuQG wjTRWtUZVkScSrzZdglJ1bGxLnUqQwGKHVoLIoO9Pq HEPsuiByCIJhiHYbUZJswjNdt0VyADTefjCuCSrlRr EiVUUfs9l4cIH5cPIdsDB9wLQvdXsrEPimNf1ekNJ4 cX7uTAVbSPDjDCXbWXHoh6ahO2grT47fluSdlK8yVP VvrB8kxPbwOYEmX32krQEzhKhaSwZcRXY3dNNqkUrg biBzbGlwLiBccGFyXHBhciBBLiBSZWNlaXZlZCBpbi Aob2IeBJryocWnMYWreXFsARgbeWsbsZpiXXQxlKnr cqFnwwKfilGeso4tmDxlztFtnsKzKuPnYLL4i8Bzma EnSHDaz2C8MJLmWUAdAM53sMLwcJzeFPZpIEfiNS90 jyMgZqN0XE6szWvdvgTbk7U1VOWvx2V2YBDlDZAxlI AowlgnZE01MXpcCU8oDNpwIU6vDBTjNEevSPFqA2Yd F1K7JP1eDFmlmFTdogEyr7PmtVy3jSIySAutHPCdrA 0qVZF3WVZdVisgbCHwrAupmtAwfjWaHHTiVOL3MPFJ RB1qaZTxXEEudzXTMjAGFHJgnBKnCDEbqbCln4MdID xpbiBsYWJlbGVkIHdpdGggdGhlIHBhdGllbnQncyBp ixQdfs0egTggsoTtiaPiYqUuTQroq7UrwVTpTT01gc IrLQWeQWosKX9uKGnfK5vxuZWlJZDqq9MeqLugmtXz UEOsbQAmYL5wXVboy6RkPtEaemJkcQLroHaqaONbSh YfX96hxsJcPQ5hUUGblv8hzV6yLRAhPwBcxZeqn2Tv LW5mBQO9jilwSkXfEmOzdMZdIcBtfHXqJjFrD55maT 1aNZspomPvJKDmScHVtSR2TYQdBCBlfWCduJE7TESn xU9miW56meMiCmEyheOegCy1ooP9yA5oCFvuJQKmb3 OqnLRnRAWjScmzUPPsiJQqJFUvHKGgH5XknlYzNMfa THCpom3ptQsfOWepDgMnLACia5l5aBR1wQRuzZS2mB OelAvhKHbhNv5wvBI6rN2hIRAfOPGjFd5jGaAoEW5o GJGby3FvgKAzzUdtKD51tSQmc1Lpkh1krPgvbFYoUF RudPhrL7o5yNOiXKNdJZJpeFv6mBObTAMvzuJgeHIu zYPfn5BqyMJmXJoswJYsELNjTtKfxOwrg8GcHD1uDE K7tzkxBeFhCpOhrEDiXaYlcRTyDbVnW96azA0uCZio miCmICYkCmIRlAH0JDPgUMAfkDItfWW4AGAooY4rjT 20cnNlAhYjfaZnuWy1zpB9mD5aSXqiWYXpd2OyeIBl IEMxLiBccGFyXHBhciBELiBSZWNlaXZlZCBpbiBmb3 JtYWxpbiBsYWJlbGVkIHdpdGggdGhlIHBhdGllbnQn ktIdnrOalr6xcAhykwQfevCfQdQwMSpwZvIaYDZoX8 VuZGluZywgcnVsZSBvdXQgaHlwZXJwbGFzdGljIiBh fzJspBsxVMPhLoWfZ84kepFfPQ2nIRUhifO3ngQ5LC 0rc7pusSUsm67cnKX6zBUhjRRxyATqn4LbxS8eOQIq AbU7UJGyQzX7LRDtLNCknZBbocMmW0veDXnlcXRyNB ByLYmzPEQnRMF4Or8xoKUlRAFbfzE2c7UmPWMnzNSe MRDxrPUyNKHec76qvN1rC8Lmi4P3dBJwLROsVDFqH3 MvcGxccGFyfQ== MICROSCOPIC DESCRIPTION (test code = p8yqdSEfISEftCIdMzRuBUJ fVFHcv0hsWLOitLGpJh 3371) BlZwOcIuVxBjceiEFaHMVlWpJrq4nvn342bJYgi7jq JUCpPnO1cAMxWXHulRKuY360h8wfs1wckfFohTQ8MS AhHAQ5LCgkcoWgesS4QFounOGmLaM0KXubhtQiLJck gpRnisPhXzf5WULcC413ANF1sGkdt2xrOYK7QISvPY PjMiCpVy7axHQdT988FETfFKOQERUniSr4ASZqhgDx vpNvsKQRt555A525e0tdCMAxxfObdJgMwotos2efH8 54SYJsoQTpxnJwPkErHOSydRHauAO5KMUgMO9todvj MlOwNL6xhlueElCoFW9lbbm4RkVjLY9rbikhYzDeDN lvCMCsqteoJWAxi5KfkbzrTP1wD7Zsx3Q0dD7ueUJk ALWkuZKxVcMyTJFsld1uuQStFIgzp0TuYVA8siJ3eV IbwPUiMEYzJR00Anjld5ByBdvrEFI4FNFqytLmz6Fx k6wnKdSkggTiT1viK9UyZOQyOXMwHXIkDoZafyCgy8 Yce5QvqWGidKt6w9yyDYAsLXLgdYqoy2piLZA9TNFp B9S1pVPeq6jiKCqxTNRlgMT2trzcJYptZEZlmhM0so liLFdiGGAsnUB7fkdbMDcoUUGfIqO6srvyYEjeRNEx RFN7GSimi839INF1PBaxYnbiSHdvFWTtugPegdCxbH duZGVjXHBsYWluXHBsYWluXGYwXGZzMjRccWxccGxh zO1aKvYoAyBiJQjhZG2cNNNkK3ziaPSmXMGxPNVsE6 fxYmWarK3xpGfkLWekgsBdXQLlxzYjow7kOLDheBFa fQ== SPECIAL STUDIES (test code = 3376) u5kgqEWxJMKps4itNQOkqNTpHcRnZkUb ZnRuYmpcdW XvJHfbqqDoDIphv7WkU7LbTgRbUWnitmOdUYSnVfpx hgyxWYMxMGO3nvMuAJHfVQjgATCxTOohZi9dsSBfhE okDeHqDXTda7lmhyXLawtdiAs1i8crBPYfHhJ4uDRq BHkaO8wshtXsbBRnK5LmfJSaoLn0v2moFiYhBwO1lL QsKGzvJ5tuovXqgLKeLBRqGBr7iJ52FLKeaY2zuGWn PChzetHtTyI0DKilBKMrWsI2HEPwgEFmAINmF3vhBY OkQNtqXYKzUJhleUHyZZS2oUaxc2R9oDAhmSMpaZig FfDyJmDlOcHAa9TgDQk3yLbpM6HdPGHnDnS5hXNpGH IkFEobXOCxCHRfrtA3jLinueDva44cjPEmABZfZZYo ByFuuJkaJLTvJKOLn7NluFxkYUN5cEz4uUguTkmzCX E2Yiq9LX7xba52rhv8uJqtCPWqoicqMtH5YSfxNWNn pkkwFNw4VKjwFQNssHJ1TQCvjCHqH1UkCJErQJ9cov e3OIM2PRyuBQScLtY3EDVauCOeLLSziQvlYVcpy900 LUI5ZbDdNR3cI8Vnd2T1gK2ewWAaZZNhyETpWoCrWP Wrak9cvOJhJIkoz7ZxAUS1xkE1gPOvxSPgVHEoZN91 Zdzxt7OmIukcq7NcJ19phRJ2BUzft6kqOQ3hUmE2mf GcIAhbl2vmwC5wDsZ6YOrsEF7yVA0xGGVbuJ1zbztr OCAzPlYofpsdGHXdyVzvbrTkEg9ydOoiUNT4LGouL3 hicY5hAfT1GYlcU3dskF0xCBa0WXtgpDZ7HVDnyB0n NF8afcihy7xfEDmgTQnpINExquD4tlV1OQStqDEyE5 OxfI9kHEGeWK5mnxfxp9kkHTT5FZnsOCQuQAL4IgNs SCGjn6Mfbyz6WoYtr0YcsVZfGAdxH66wu428BJXdud YaO4jmkZBlnwdbfAUqotacPImktlI0OOAhEVRpMLve XGYxXGZzMjJcbGFuZzEwMzNcaGljaFxmMVxkYmNoXG JsGImiL4gpVtMjU2TaSYJzRvOnEAixBCsijNJlrTOh vIK8mR8jLS8yFXZqsNCrK9HpLUArqnExuDNrBGA8uL GhzJKxMU2pBChdiXDsv8kqc7FxA1uskTwigCI3IN8v QESnFNNuATrnl4NzpR7dKngjpHAiavmeLDfprvDoST aswpxfBBPkCTcgU8qiLxIoWYXetXpdPTkla3WjGGYw ZGAgWabjbbXtRRw7khSaQVYffgcnBROzbMnkaK3yDe CbSsTzYanbOZ1jGCHoD8mdyPJbQZLaQJIfK6vkPlOl yN1pwTzpMBvbBmYlShElUdTJh927pb7eQLModIOtkg OKhNSouF3vFEssKEdbOExuaOJjPKqrd5pnIQXmm8j7 fEDrLCNvdoYdg9mgXUkdqyBmAPKyyICjbVXoUPSzt2 5eOWsiqYzmfUabCYVcv9EyjZwds2JiTkZpNTdzd3Ck L64lyLYjaRWlqJtoFUVijyBzPNKft45tr5ehQVTwXe L0vOExbJK6nMCmdUKge3XmbFbkPGOxh6ynTESvms0s cojfuADbp4QteE6ybsigRJadhYOdeiFmMQMkj0j4dJ FwVGVjEKDyZAttxVh9PZHch271xq7pmqQ3aGEtPWZ5 YWlsYWJsZSBhcmUgZXZhbHVhdGVkXHBsYWluXGYxXG ZzMjJcbGFuZzEwMzNcaGljaFxmMVxkYmNoXGYxXGxv O7pwBnJbM8WuXZPuSvLamAPuV9minRTsTWKlPAdmDU YxXGZzMjJcbGFuZzEwMzNcaGljaFxmMVxkYmNoXGYx OXiyE7hbXzHtY4BxZTGiKiOfSRicvMDmveipSWozks UoFNeravqxESQxZOlbW7fgEeSrKLCjqPizTMdqz0Zc WUTzPOKkOowsmnDbOKt6ppXkZTRwqtvyoCSynelfGX vaddCcHAzrkrnkURVfVZsuU0qkPzTtMBYbtPjvLNbg f0DgOJFbMPAuZejqmxXpMPqgcQWln7gcc1TeA3etyS lxeQV0DAFkS0kicQEejHE1IKN5dB3wUDodcpKrHQNl k5InQFWvYYKuUmZ6qI8dXWP8LaJPeAagRYTjJMkuWN YxXGZzMjJcbGFuZzEwMzNcaGljaFxmMVxkYmNoXGYx EQmnA2vgZsWeH4FjWSMbNcYrmKgoGGixQYt0UlrumF BpqlnaHZnvphJiCTvfyvcsVCGkDDptK6ffWzRnTFJf xRkwNBocy2NtCEFpOKViEprlflJkPVZkXCVpjJLyzX ASQY89SCIsLOJxfQuxdY6blFBCZWQinzP2v6D2XYft WPYiZCm2DPwextKxDXOgsD2dHGRqLE3dJJk2fwLxGF Tgk7MfCA7rHRBjnQImPWI2TSGsc3PqH1Zzp0CnRQOy KVPcxr7wfuAzKwWOjYSpJNSowg14WJEzZV4pM3btTV QoTHAsocVreHKgy3DtIZXpvXP9cGAiIE9CIxSFd37y BYCbYNBKonLuPBNynTzjvCR0agB1fN6iTzXXwWUkOp DREGkszsYpBBOdbc1ompTgWGDcQLXax0CfzAUkjBAk yyFiL9Yjr3NfUPJeau16UIriyJVhzp71XS2gK9Yuk2 UbrY5wDIwwMLToh5ZioIEnbUBiSQTfe8YtI9ghyxwi VNpnpAUbgL1aJCPgSEu1YHTfq3VfONPye0BcGoVwad NiOCPbJUAcUBZalD64EWP6dEwgeSymqwUoEA9vOZNs gyYrOJIiSBSmzA1iPMsfjgFwVKNhqpS4e7G6LDidAB LlwpLjSzbqENP2caDsnyO2oEIvM1ewqawvOKxsRRWz g9PdzJ1maBSMfTAnj3FsqZFpsWTQbXRwQK9pxcKuQV 0pJDU9SZnsJWZESBHcMVfuYKHpPKP1WTgyAkzkIHW5 reMqQILah3OxEUbkS5ohY30syAsdfFe4wZRmnJbtiT VysSAyEHCoboD5s7Z5NUAgi8FebjgoYAGzCBpyKWQu XGZzMjJcbGFuZzEwMzNcaGljaFxmMlxkYmNoXGYyXG lpW2woGzAhNtXzRzygHMT0mR== [facility] [id number] 11:58:00Surgical Pathology Report Case: [id number] Authorizing Provider: Nestor Zimmerman MD Collected: 11/29/2019 1323 Ordering Location: [facility] Received: 11/29/2019 1557 SERVICES Pathologist: Chika Casey MD Specimens: A) - Duodenum, bx B) -Gastric, antrum body and incisura bx r/o h. pylori C) - Esophagus, random bx r/o eosinophilic esophagitis D) - Polyp, Colon - Left/Descending, r/o hyperplastic A. DUODENUM, BIOPSY: - DUODENAL MUCOSA WITH PRESERVED VILLOUS ARCHITECTURE - NEGATIVE FOR INCREASE INTRAEPITHELIAL LYMPHOCYTES - FOCAL PROMINENCE OF GORGE GLANDB. GASTRIC ANTRUM AND BODY, BIOPSY: - GASTRIC ANTRUM TYPE MUCOSA WITH REACTIVE GASTROPATHY - GASTRIC BODY TYPE MUCOSA WITH MILD PARIETAL CELL HYPERPLASIA - WARTHIN-STARRY STAIN NEGATIVE FOR H. PYLORI-LIKE ORGANISMSC. ESOPHAGUS, RANDOM BIOPSY: - ESOPHAGEAL SQUAMOUS MUCOSA WITH NO SIGNIFICANT HISTOPATHOLOGICAL CHANGE - NO COLUMNAR EPITHELIUM PRESENTD. POLYP, LEFT DESCENDING COLON, BIOPSY: - COLONIC MUCOSA WITH FOCAL HYPERPLASTIC CHANGESJ/plSigning Pathologist Direct Phone Line: [phone] signed by Chika Casey MD on 12/03/2019 at 11:58 AMNo features of microscopic colitis noted. Endoscopic report reviewed. [id number] x4; 89298 w4Dymoifkerbe abdominal pain, constipationA. Duodenal biopsy; B. Gastric antrum body and incisura biopsy rule out H. Pylori; C. Random biopsy of esophagus rule out eosinophilic esophagitis; D. Left/descending colon polyp, rule out hyperplastic polyp The case is received in four parts labeled with the patient's information as [id number] which corresponds to the accompanying requisition slip. A. Received in formalin labeled with the patient's information and "A. Duodenal tissue" are multiple fragments of navarrete-pink soft tissue measuring 0.4 x 0.3 x 0.2 cm in aggregate. They are submitted in toto after filtration in cassette A1.B. Received in formalin labeled with the patient's information and "B. Gastric antrum body and incisura biopsy, rule out H. Pylori" are multiple fragments of navarrete-pink soft tissue measuring 0.3 x 0.3 x 0.2 cm in aggregate. They are submitted in toto after filtration in cassette B1.C. Received in formalin labeled with the patient's information and "C. Random biopsy rule out eosinophilic esophagitis" are multiple fragments of navarrete-white soft tissue measuring 0.3 x 0.2 x 0.1 cm in aggregate. They are submitted in toto after filtration in cassette C1. D. Received in formalin labeled with the patient's information and "D. Left/descending, rule out hyperplastic" are three fragmentsof navarrete to navarrete-white soft tissue measuring 0.3 x 0.2 x 0.1 cm in aggregate. They are submitted in toto after filtration in cassette D1. SC/plPerformed The interpretation of this case included the use of immunohistochemistry or special stains.Control Slides Examined: In-house known positive controls were evaluated along with the test tissue. These control slides run alongside of the patients sampleshow appropriate staining. Internal positive and negative controls when available are evaluated Immunohistochemistry technical testing was performed at [facility], Pathology Laboratory where it was developed and its performance characteristics were determined. It has not been cleared or approved by the U.S. Food and Drug Administration. The FDA has determined that such clearanceor approval is not necessary. The test is used for clinical purposes. It should not be regarded as investigational or for research. This laboratory is certified under the Clinical Laboratory Improvement Amendments of 1988 (CLIA- 88) as qualified to perform high complexity clinical laboratory testing.- US HEAD AND [id number] 15:55:00 Patient Name: ELISA LINTON Unit No: [id number] EXAMS: CPT CODE: [id number] US HEAD AND NECK 56851 THYROID ULTRASOUND Exam date: July 25, 2019 CLINICAL HISTORY: Thyroid enlar gement COMPARISON: None FINDINGS: The right lobe thyroid measures 35 x 17 x 13 mm cm. Thereis a 3 x 2 x 3 mm colloid cyst in the superior right lobe. The left lobe thyroid measures 35 x 14 x 13 mm cm. There is a 2 x 2 x 2 mm colloid cyst in the mid pole of the left lobe. The isthmus measures2 mm No dominant nodule is seen. IMPRESSION: Small colloid cysts as described above. at 1555 Reported and signed by: Yuli Hwang MD CC: Tamika Suero MD Technologist: Ginny Cordero RDMS Probe: Trnscrbd D/ (9513) Robin Orig Print D/T: S: 07/25/2019 (2277) [facility] NAME: ELISA LINTON Radiology Department PHYS: Tamika Sanders [address] : 1980 AGE: 39 SEX: F [place] [address] LOC: [facility] PHONE #: EXAM DATE: 07/25/2019 STATUS: REG CLI FAX #: [phone] RADNO: Page 1 Signed Report Patient Name:ELISA LINTON Unit No: [id number] EXAMS: CPT CODE: [id number] US HEAD AND NECK 04568 <Continued> [facility] NAME: ELISA LINTON Radiology Department PHYS: Tamika Sanders [address] : 1980 AGE: 39 SEX: F [place] [address] LOC: [facility] PHONE #: [phone] EXAM DATE: 07/25/2019 STATUS: REG CLI FAX #: [phone] RAD NO: Page 2 Signed Report- US PELVIS [id number] 15:43:00 Patient Name: ELISA LINTON Unit No: [id number] EXAMS: CPT CODE: [id number] US PELVIS COMPLETE 90259 Exam: Pelvic ultrasound. Exam date: July 25, 2019 COMPARISON: None. CLINICAL HISTORY: Irregular cycles. Real-time transabdominal and transvaginal imaging with color and Spectral doppler of the pelvis demonstrates a 77 x 41 x 64 mm uterus. The following fibroids are seen: Left intramural 45 x 39 x 42 mm Right intramural 12 x 13 x 12 mm. The endometrium measures 3 mm . The right ovary measures 44 x 24 x 21 mm and has a normal sonographic appearance. Blood flow is identified within the ovaries.. The left ovary measures 19 August 2017 by 17 mm and has anormal sonographic appearance. Blood flow is identified within the ovary.. No significant free fluid or adnexal masses are identified. IMPRESSION: 1. Uterine leiomyomas , as detailed above. at 1543 Reported and signed by: Yuli Hwang MD CC: Tamika Suero MD Technologist: Ginny Cordero RDMS Probe: Trnscrbd D/ (1543) t.SDR.CER Orig Print D/T: S: 07/25/2019 (1546) [facility] NAME: ELISA LINTON Radiology Department PHYS: Tamika Sanders [address] : 1980 AGE: 39SEX: F [place] [address] LOC: [facility] PHONE #: [phone] EXAM DATE: 07/25/2019 STATUS: REG CLI FAX #: [phone] RAD NO: Page 1 Signed Report Patient Name: ELISA BAEZ Unit No: [id number] EXAMS: CPT CODE: [id number] US PELVIS COMPLETE 19938 <Continued> [facility] NAME: ELISA LINTON Radiology Department PHYS: Tamika Sanders [address] : 1980 AGE: 39 SEX: F [place] [address] LOC: [facility] PHONE #: [phone] EX AM DATE: 07/25/2019 STATUS: REG CLI FAX #: [phone] RAD NO: Page 2 Signed Report- US TRANSVAGINAL [id number] 15:43:00 Patient Name: ELISA LINTON Unit No: [id number] EXAMS: CPT CODE: [id number] US TRANSVAGINAL W/PELVIS 62003 Exam: Pelvic ultrasound. Exam date: July 25, 2019 COMPARISON: None. CLI NICAL HISTORY: Irregular cycles. Real-time transabdominal and transvaginal imaging with color and Spectral doppler of the pelvis demonstrates a 77 x 41 x 64 mm uterus. The following fibroids are seen: Left intramural 45 x 39 x 42 mm Right intramural 12 x 13 x 12 mm. The endometrium measures 3 mm . The right ovary measures 44 x 24 x 21 mm and has a normal sonographic appearance. Blood flow is identified within the ovaries.. The left ovary measures 19 August 2017 by 17 mm and has anormal sonographic appearance. Blood flow is identified within the ovary.. No significant free fluid or adnexal masses are identified. IMPRESSION: 1. Uterine leiomyomas , as detailed above. at 1543 Reported and signed by: Yuli Hwang MD CC: Tamika Suero MD Technologist: Ginny Cordero [facility] Probe: [id number] Trnscrbd D/ (1543) t.SDR.CER Orig Print D/T: S: 07/25/2019 (5626) [facility] NAME: ELISA LINTON Radiology Department PHYS: Tamika Sanders [address] : 1980 AGE: 39SEX: F [place] [address] LOC: [facility] PHONE #: [phone] EXAM DATE: 07/25/2019 STATUS: REG CLI FAX #: [phone] RAD NO: Page 1 Signed Report Patient Name: ELISA LINTON Unit No: [id number] EXAMS: CPT CODE: [id number] US TRANSVAGINAL W/PELVIS 27373<Continued> [facility] NAME: SUMMER LINTONLINE Radiology Department PHYS: Tamika Sanders [address] : 1980 AGE: 39 SEX: F [place] [address] LOC: [facility] PHONE #: [phone] EXAM DATE: 07/25/2019 STATUS: REG CLI FAX #: [phone] RAD NO: Page 2 Signed ReportNeisseria gonorrhoeae DNA [id number] 15:26:00 Test Item Value Reference Range Interpretation Comments Neisseria gonorrhoeae DNA probe Negative Negative (test code = 22842-2) [facility] [id number] 15:26:00 Test Item Value Reference Range Interpretation Comments chlamydia DNA probe (test code = Negative Negative 80979-4) [facility] [id number] 15:27:00 Test Item Value Reference Range Interpretation Comments urine culture (test code = 630-4) LESS [facility]thyrox[facility], serum, [id number] 09:48:00 Test Item Value Reference Range Interpretation Comments thyroxine, serum, free (test code 1.49 ng/dL 0.82-1.77 = 3024-7) [facility] Centerthyroid stimulating hormone, [id number] 09:48:00 Test Item Value Reference Range Interpretation Comments thyroid stimulating hormone, 4.950 u[iU]/mL 0.450-4.500 H serum (test code = 3016-3) [facility] Centerrubella antibody, serum, [id number] 09:48:00 Test Item Value Reference Range Interpretation Comments rubella antibody, serum, IgG (test code 5.04 Immune >0.99 = 5334-8) [facility]hemoglobin A1C, blood, as % of total [id number] 09:48:00 Test Item Value Reference Range Interpretation Comments hemoglobin A1C, blood, as % of total 5.3 % 4.8-5.6 hemoglobin (test code = 4548-4) [facility] CenterLDL cholesterol, [id number] 09:48:00 Test Item Value Reference Range Interpretation Comments LDL cholesterol, serum (test code = 81 mg/dL 0-99 9-1) [facility] Centervery low density klxuowuirsoz4239-21-93 09:48:00 Test Item Value Reference Range Interpretation Comments very low density lipoproteins (test 29 mg/dL 5-40 code = 1-7) [facility] CenterHDL cholesterol, [id number] 09:48:00 Test Item Value Reference Range Interpretation Comments HDL cholesterol, serum (test code = 48 mg/dL >39 5-9) [facility]rig[facility], serum, adsrtml4219-71-53 09:48:00 Test Item Value Reference Range Interpretation Comments triglyceride, serum, fasting (test 144 mg/dL 0-149 code = 2571-8) [facility]cholesterol, [id number] 09:48:00 Test Item Value Reference Range Interpretation Comments cholesterol, serum (test code = 158 mg/dL 963-307 1113-3) [facility] Centeralanine aminotransferase (SGPT), [id number] 09:48:00 Test Item Value Reference Range Interpretation Comments alanine aminotransferase (SGPT), serum 13 1/L 0-32 (test code = 1742-6) [facility] Centeraspartate aminotransferase (SGOT), plfjw1155-74-50 09:48:00 Test Item Value Reference Range Interpretation Comments aspartate aminotransferase (SGOT), 12 1/L 0-40 serum (test code = 1920-8) [facility] Centeralkaline phosphatase, [id number] 09:48:00 Test Item Value Reference Range Interpretation Comments alkaline phosphatase, serum (test code 65 1/L 39-117 = 1783-0) [facility]bilirubin, serum, [id number] 09:48:00 Test Item Value Reference Range Interpretation Comments bilirubin, serum, total (test code 0.3 mg/dL 0.0-1.2 = 1975-2) [facility] Centeralbumin/globulin ratio, reaqm5880-05-56 09:48:00 Test Item Value Reference Range Interpretation Comments albumin/globulin ratio, serum (test 2.2 1.2-2.2 code = 1759-0) [facility] Healthglobulin, [id number] 09:48:00 Test Item Value Reference Range Interpretation Comments globulin, serum (test code = 2336-6) 1.9 1.5-4.5 [facility] Healthalbumin, [id number] 09:48:00 Test Item Value Reference Range Interpretation Comments albumin, serum (test code = 1751-7) 4.1 g/dL 3.5-5.5 [facility] Centerprotein, total, [id number] 09:48:00 Test Item Value Reference Range Interpretation Comments protein, total, serum (test code = 6.0 g/dL 6.0-8.5 2885-2) [facility] Centercalcium, [id number] 09:48:00 Test Item Value Reference Range Interpretation Comments calcium, serum (test code = 1999-8) 9.1 mg/dL 8.7-10.2 [facility] Centercarbon dioxide, venous [id number] 09:48:00 Test Item Value Reference Range Interpretation Comments carbon dioxide, venous blood (test 22 mmol/L code = 2026-1) [facility] Centerchloride, [id number] 09:48:00 Test Item Value Reference Range Interpretation Comments chloride, serum (test code = 103 mmol/L 96-106 5-0) [facility] Healthpotassium, ktuqw3596-02-25 09:48:00 Test Item Value Reference Range Interpretation Comments potassium, serum (test code = 3.8 mmol/L 3.5-5.2 2823-3) [facility] Centersodium, njnaq4969-34-49 09:48:00 Test Item Value Reference Range Interpretation Comments sodium, serum (test code = 2951-2) 140 mmol/L 134-144 [facility] Centerurea nitrogen/creatinine ratio, amvaj6373-30-25 09:48:00 Test Item Value Reference Range Interpretation Comments urea nitrogen/creatinine ratio, serum 19 9-23 (test code = 3097-3) [facility] CentereGFR if Wglqivcg7807-16-96 09:48:00 Test Item Value Reference Range Interpretation Comments eGFR if 111 >59 (test code = 79467-9) mL/min/((173/100).m2) [facility] CenterEstimated Glomerular Filtration Rate (calc)2018-07-05 09:48:00 Test Item Value Reference Range Interpretation Comments Estimated Glomerular 97 >59 Filtration Rate (calc) mL/min/((173/100).m2 (test code = 96971-4) ) [facility] Centercreatinine, [id number] 09:48:00 Test Item Value Reference Range Interpretation Comments creatinine, serum (test code = 0.79 mg/dL 0.57-1.00 2160-0) [facility] Centerurea nitrogen, pysue1113-62-08 09:48:00 Test Item Value Reference Range Interpretation Comments urea nitrogen, blood (test code = 15 mg/dL 6-20 3094-0) [facility] Centerblood glucose, nfdwhs6765-60-34 09:48:00 Test Item Value Reference Range Interpretation Comments blood glucose, random (test code = 89 mg/dL 65-99 2339-0) [facility] Centerimm[facility] granulocytes, percentage of total cells, blood 2018-07-05 09:48:00 Test Item Value Reference Range Interpretation Comments immature granulocytes, percentage of 0 % total cells, blood (test code = 93924-7) [facility] Healthbasophil count, [id number] 09:48:00 Test Item Value Reference Range Interpretation Comments basophil count, absolute (test 0.0 x10E3/uL 0.0-0.2 code = 72106-2) [facility] HealthEosinophil Absolute [id number] 09:48:00 Test Item Value Reference Range Interpretation Comments Eosinophil Absolute Count (test 0.1 X10E3/UL 0.0-0.4 code = 14368-3) [facility] Centermonocyte count, blood, [id number] 09:48:00 Test Item Value Reference Range Interpretation Comments monocyte count, blood, automated 0.4 X10E3/UL 0.1-0.9 (test code = 742-7) [facility] Centerlymph[facility] count, blood, [id number] 09:48:00 Test Item Value Reference Range Interpretation Comments lymphocyte count, blood, 3.0 X10E3/UL 0.7-3.1 automated (test code = 731-0) [facility] CenterAbsolute Gxdgkofhohz2508-09-45 09:48:00 Test Item Value Reference Range Interpretation Comments Absolute Neutrophils (test code 3.2 X10E3/UL 1.4-7.0 = 57813-5) [facility] Healthbasophils as percent of blood sbvtsqgfub9741-93-95 09:48:00 Test Item Value Reference Range Interpretation Comments basophils as percent of blood 0 % leukocytes (test code = 707-0) [facility] Healtheosinophils as percent of blood znqcwybzjb7491-52-04 09:48:00 Test Item Value Reference Range Interpretation Comments eosinophils as percent of blood 1 % leukocytes (test code = 713-8) [facility] Healthmonocytes as percent of blood [id number] 09:48:00 Test Item Value Reference Range Interpretation Comments monocytes as percent of blood 6 % leukocytes (test code = 5905-5) [facility] Centerlymphocytes as percent of blood [id number] 09:48:00 Test Item Value Reference Range Interpretation Comments lymphocytes as percent of blood 45 % leukocytes (test code = 736-9) [facility] Centerneutrophils as percent of blood [id number] 09:48:00 Test Item Value Reference Range Interpretation Comments neutrophils as percent of blood 48 % leukocytes (test code = 770-8) [facility] Centerplatelet [id number] 09:48:00 Test Item Value Reference Range Interpretation Comments platelet count (test code = 207 X10E3/UL 150-379 777-3) [facility] Centerred blood cell distribution [id number] 09:48:00 Test Item Value Reference Range Interpretation Comments red blood cell distribution width 14.0 % 12.3-15.4 (test code = 788-0) [facility] hemoglobin concentration, [id number] 09:48:00 Test Item Value Reference Range Interpretation Comments mean corpuscular hemoglobin 33.0 G/DL 31.5-35.7 concentration, RBC (test code = 786-4) [facility] corpuscular hemoglobin, [id number] 09:48:00 Test Item Value Reference Range Interpretation Comments mean corpuscular hemoglobin, RBC 30.6 pg 26.6-33.0 (test code = 785-6) [facility] corpuscular volume, [id number] 09:48:00 Test Item Value Reference Range Interpretation Comments mean corpuscular volume, RBC (test code 93 fL 79-97 = 787-2) [facility] Centerhematocrit, [id number] 09:48:00 Test Item Value Reference Range Interpretation Comments hematocrit, blood (test code = 4544-3) 39.1 % 34.0-46.6 [facility] Centerhemoglobin, [id number] 09:48:00 Test Item Value Reference Range Interpretation Comments hemoglobin, blood (test code = 12.9 g/dL 11.1-15.9 718-7) [facility] Centererythrocyte (RBC) [id number] 09:48:00 Test Item Value Reference Range Interpretation Comments erythrocyte (RBC) count (test 4.21 X10E6/UL 3.77-5.28 code = 789-8) [facility] Centerleukocyte count, [id number] 09:48:00 Test Item Value Reference Range Interpretation Comments leukocyte count, blood (test 6.7 X10E3/UL 3.4-10.8 code = 6690-2) [facility] HealthpH, urine, aoeprhafnfaeapbr8107-89-66 08:38:29 Test Item Value Reference Range Interpretation Comments pH, urine, semiquantitative (test code 5.0 = 5803-2) [facility] Centerspecific gravity, czijx0354-17-15 08:38:29 Test Item Value Reference Range Interpretation Comments specific gravity, urine (test code = 1.010 5811-5) [facility] Centerglucose, urine, [id number]6 08:38:29 Test Item Value Reference Range Interpretation Comments glucose, urine, semiquantitative negative (test code = 5792-7) [facility] Centerbilirubin, [id number] 08:38:29 Test Item Value Reference Range Interpretation Comments bilirubin, urine (test code = negative 5770-3) [facility] Centerketones, urine, by test mdupq1024-57-31 08:38:29 Test Item Value Reference Range Interpretation Comments ketones, urine, by test strip (test negative code = 5797-6) [facility] Centerblood in urine (hemoglobin) by sqlgydrw9788-01-84 08:38:29 Test Item Value Reference Range Interpretation Comments blood in urine (hemoglobin) by dipstick 1+ (test code = 4998) [facility] Centerprotein, urine, semiquantitative (dipstick)2018-07-05 08:38:29 Test Item Value Reference Range Interpretation Comments protein, urine, semiquantitative negative (dipstick) (test code = 1753-3) [facility] Centerurobilinogen, urine, semiquantitative (dipstick) 2018-07-05 08:38:29 Test Item Value Reference Range Interpretation Comments urobilinogen, urine, negative semiquantitative (dipstick) (test code = 5818-0) [facility] Centernitrite, urine, qcizdcnynjfzhroy9453-23-96 08:38:29 Test Item Value Reference Range Interpretation Comments nitrite, urine, semiquantitative negative (test code = 5802-4) [facility] Centerleukocyte esterase, urine, by nqrqghrq9623-12-67 08:38:29 Test Item Value Reference Range Interpretation Comments leukocyte esterase, urine, by negative dipstick (test code = 5799-2) [facility] Centerappearance, [id number] 08:38:29 Test Item Value Reference Range Interpretation Comments appearance, urine (test code = 5767-9) clear [facility] Centerurine [id number] 08:38:29 Test Item Value Reference Range Interpretation Comments urine color (test code = 5778-6) yellow [facility] CenterHERPES SIMPLEX VIRUS IDENTIFIED (PT; XXX; QL; )2017-04-22 14:37:00 Test Item Value Reference Range Interpretation Comments HERPES SIMPLEX VIRUS IDENTIFIED (PT; HSVN XXX; QL; ) (test code = 3557) [facility] CenterNeisseria gonorrhoeae DNA [id number] 14:37:00 Test Item Value Reference Range Interpretation Comments Neisseria gonorrhoeae DNA probe Negative Negative (test code = 16296-9) [facility] Centerchlamydia DNA [id number] 14:37:00 Test Item Value Reference Range Interpretation Comments chlamydia DNA probe (test code = Negative Negative 74453-9) [facility] Centerhepatitis B surface [id number] 15:30:00 Test Item Value Reference Range Interpretation Comments hepatitis B surface antigen (test Negative Negative code = 79) [facility], [id number] 15:30:00 Test Item Value Reference Range Interpretation Comments hepatitis C antibody, serum (test code 0.1 0.0-0.9 = 5199-5) [facility] CenterHIV-CMIA (Chemiluminescent Microparticle Immuno Assay) 2017-04-20 15:30:00 Test Item Value Reference Range Interpretation Comments HIV-CMIA (Chemiluminescent Non Reactive Non Reactive Microparticle Immuno Assay) (test code = 763275) [facility] Centerrapid plasma reagin antibody, [id number] 15:30:00 Test Item Value Reference Range Interpretation Comments rapid plasma reagin antibody, Non Reactive Non Reactive serum (test code = 5291-0) [facility] HospitalPES SIM[facility] VIR[facility] TYPE 2 AB.IGG (PT; SER; QN; ) 2017-04-20 15:30:00 Test Item Value Reference Range Interpretation Comments HERPES SIMPLEX VIRUS TYPE 2 AB.IGG 1.29 index 0.00-0.90 H (PT; SER; QN; ) (test code = 2434) [facility] CenterHERPES SIMPLEX VIRUS TYPE 1 AB.IGG (PT; SER; QN; ) 2017-04-20 15:30:00 Test Item Value Reference Range Interpretation Comments HERPES SIMPLEX VIRUS TYPE 1 <0.91 index 0.00-0.90 AB.IGG (PT; SER; QN; ) (test code = 2432) [facility] CenterYvwacz72-upxngkqgtbingqdcgcm, serum or [id number] 14:54:00 Test Item Value Reference Range Interpretation Comments 17-hydroxyprogesterone, serum or 71 ng/dL plasma (test code = 3232) [facility] Centerprolactin, [id number] 14:54:00 Test Item Value Reference Range Interpretation Comments prolactin, serum (test code = 10.9 ng/mL 4.8-23.3 2842-3) [facility] Centerdehydroepiandrosterone sulfate, [id number] 14:54:00 Test Item Value Reference Range Interpretation Comments dehydroepiandrosterone sulfate, 123.1 ug/dL 84.8-378.0 serum (test code = 2724) [facility] Centerfollicle stimulating hormone, [id number] 14:54:00 Test Item Value Reference Range Interpretation Comments follicle stimulating hormone, 6.8 m[iU]/mL serum (test code = 2286-3) [facility] Centerluteinizing hormone, [id number] 14:54:00 Test Item Value Reference Range Interpretation Comments luteinizing hormone, serum 16.9 m[iU]/mL (test code = 09292-3) [facility] Centertestosterone, [id number] 14:54:00 Test Item Value Reference Range Interpretation Comments testosterone, total (test code = 19 ng/dL 8-48 2986-8) [facility] Centerimmature granulocytes, percentage of total cells, blood 2016-11-15 14:54:00 Test Item Value Reference Range Interpretation Comments immature granulocytes, percentage of 0 % total cells, blood (test code = 25068-9) [facility] Centerbasophil count, [id number] 14:54:00 Test Item Value Reference Range Interpretation Comments basophil count, absolute (test 0.0 x10E3/uL 0.0-0.2 code = 48299-9) [facility] HealthEosinophil Absolute [id number] 14:54:00 Test Item Value Reference Range Interpretation Comments Eosinophil Absolute Count (test 0.1 X10E3/UL 0.0-0.4 code = 13069-9) [facility] Healthmonocyte count, blood, [id number] 14:54:00 Test Item Value Reference Range Interpretation Comments monocyte count, blood, automated 0.6 X10E3/UL 0.1-0.9 (test code = 742-7) [facility] Centerlymphocyte count, blood, ktojueywo5957-00-28 14:54:00 Test Item Value Reference Range Interpretation Comments lymphocyte count, blood, 3.2 X10E3/UL 0.7-3.1 H automated (test code = 731-0) [facility] HealthAbsolute [id number] 14:54:00 Test Item Value Reference Range Interpretation Comments Absolute Neutrophils (test code 3.8 X10E3/UL 1.4-7.0 = 17526-0) [facility] Healthbasophils as percent of blood lbuvhhcznx8244-51-85 14:54:00 Test Item Value Reference Range Interpretation Comments basophils as percent of blood 0 % leukocytes (test code = 707-0) [facility] Healtheosinophils as percent of blood mrgfjfyhew5171-75-50 14:54:00 Test Item Value Reference Range Interpretation Comments eosinophils as percent of blood 1 % leukocytes (test code = 713-8) [facility] Healthmonocytes as percent of blood qkgyocfitw6040-89-94 14:54:00 Test Item Value Reference Range Interpretation Comments monocytes as percent of blood 8 % leukocytes (test code = 5905-5) [facility] Centerlymphocytes as percent of blood [id number] 14:54:00 Test Item Value Reference Range Interpretation Comments lymphocytes as percent of blood 42 % leukocytes (test code = 736-9) [facility] Centerneutrophils as percent of blood genkretwym1897-48-24 14:54:00 Test Item Value Reference Range Interpretation Comments neutrophils as percent of blood 49 % leukocytes (test code = 770-8) [facility] Centerplatelet [id number] 14:54:00 Test Item Value Reference Range Interpretation Comments platelet count (test code = 236 X10E3/UL 150-379 777-3) [facility] Centerred blood cell distribution [id number] 14:54:00 Test Item Value Reference Range Interpretation Comments red blood cell distribution width 13.5 % 12.3-15.4 (test code = 788-0) [facility] corpuscular hemoglobin concentration, [id number] 14:54:00 Test Item Value Reference Range Interpretation Comments mean corpuscular hemoglobin 34.3 G/DL 31.5-35.7 concentration, RBC (test code = 786-4) [facility] corpuscular hemoglobin, [id number] 14:54:00 Test Item Value Reference Range Interpretation Comments mean corpuscular hemoglobin, RBC 30.6 pg 26.6-33.0 (test code = 785-6) [facility] corpuscular volume, [id number] 14:54:00 Test Item Value Reference Range Interpretation Comments mean corpuscular volume, RBC (test code 89 fL 79-97 = 787-2) [facility] Centerhematocrit, [id number] 14:54:00 Test Item Value Reference Range Interpretation Comments hematocrit, blood (test code = 4544-3) 39.1 % 34.0-46.6 [facility] Centerhemoglobin, [id number] 14:54:00 Test Item Value Reference Range Interpretation Comments hemoglobin, blood (test code = 13.4 g/dL 11.1-15.9 718-7) [facility] Centererythrocyte (RBC) [id number] 14:54:00 Test Item Value Reference Range Interpretation Comments erythrocyte (RBC) count (test 4.38 X10E6/UL 3.77-5.28 code = 789-8) [facility] Centerleukocyte count, [id number] 14:54:00 Test Item Value Reference Range Interpretation Comments leukocyte count, blood (test 7.7 X10E3/UL 3.4-10.8 code = 6690-2) [facility] Centerhepatitis B surface [id number] 14:30:00 Test Item Value Reference Range Interpretation Comments hepatitis B surface antigen (test Negative Negative code = 79) [facility] Centerantinuclear wflzdiyx2846-55-26 14:30:00 Test Item Value Reference Range Interpretation Comments antinuclear antibody (test code = Negative Negative 5047-6) [facility] Centerhepatitis C antibody, [id number] 14:30:00 Test Item Value Reference Range Interpretation Comments hepatitis C antibody, serum (test code <0.1 0.0-0.9 = 5199-5) [facility] CenterHIV-CMIA (Chemiluminescent Microparticle Immuno Assay) 2016-11-10 14:30:00 Test Item Value Reference Range Interpretation Comments HIV-CMIA (Chemiluminescent Non Reactive Non Reactive Microparticle Immuno Assay) (test code = 955225) [facility] Centerrapid plasma reagin antibody, [id number] 14:30:00 Test Item Value Reference Range Interpretation Comments rapid plasma reagin antibody, Non Reactive Non Reactive serum (test code = 5291-0) [facility] Centerrheumatoid [id number] 14:30:00 Test Item Value Reference Range Interpretation Comments rheumatoid factor (test code = 9.8 [iU]/mL 0.0-13.9 01921-3) [facility]
--- OUTSIDE RECORDS SUMMARY | 2020-04-15 07:16 | XMS REPORT | Summary of Care ---
:1980 Author Organization [facility] [place] [address] Care Team Providers Name Role Phone TARA Joya Crc Navigator Unavailable Jesus Primary Care Provider Reason for Visit Reason Comments Mole Check full body Encounter Details Date Type Department Care Team Description [facility]) Medicine Dermatology [address] [facility] [address] [place] [address] [place] [address] [phone] Allergies Active Allergy Reactions Severity Noted Date Comments Ceftriaxone Anaphylaxis 09/25/2013 Lortab 10/31/2019 documented as of this encounter (statuses as of 03/04/2020) Medications Medication Sig Dispensed Refills Start Date End Date Status citalopram (CELEXA) 20 Take 20 mg by 0 Active MG tablet mouth daily. VITAMIN D OR Take by mouth. 0 A ctive Na Sulfate-K Sulfate-Mg [SUPREP] Take as 1 Bottle 0 0 Active Sulf (SUPREP BOWEL PREP directed. KIT) 17.5-3.13-1.6 GM/177ML SOLN Amoxicillin 775 MG TB24 Take by mouth. 0 Active documented as of this encounter (statuses as of 03/04/2020) Active Problems Problem Noted Date Other dysphagia 10/31/2019 Generalized abdominal pain 10/31/2019 Other constipation 10/31/2019 Abdominal bloating 10/31/2019 Anxiety 10/31/2019 Depression 10/31/2019 documented as of this encounter (statuses as of 03/04/2020) Social History Tobacco Use Types Packs/Day Years Used Date Former Smoker Smokeless Tobacco: Former User Sex Assigned at Date Recorded Not on file Job Start Date Occupation Industry Not on file Not on file Not on file Travel History Travel Start Travel End No recent travel history available. COVID-19 Exposure Response Date Recorded In the last month, have you been in contact with No / Unsure 03/04/2020 1:55 PM CDT someone who was confirmed or suspected to have Coronavirus / COVID-19? 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 Wonders what various persistent lesions are on trunk and extremities. Increasing in number over time. No prior treatment. Not itchy, painful, or bleeding. Has a red spot on left cheek from recent pimple and wonders what she can do to make it fade. PMH: No skin cancer FMH: No skin cancer ROS: No other changing skin lesions or rashes. No fever, chills, nausea/vomiting. The patient's intake sheet was reviewed today, with information pertaining to past medical history, family medical history, social history, allergies, and medications, reviewed. The intake sheets are by protocol scanned into the system after the clinic visit. Physical Exam Gen: NAD, well-developed well-nourished, A&O, normal mood and affect Skin (head and face, neck, chest, abdomen, genitalia/groin/buttocks, back, right/left arms/forearms/hands, right/left thighs/legs/feet) significant findings---- 1. Scattered brown macules and papules on face, trunk, and extremities with no worrisome features 2. Erythematous macule left cheek 3. Red papules on trunk and extremities Patient declined exam elsewhere Rest of skin exam clear with no worrisome lesions A/P 1. Benign nevi and solar lentigines --Sun protection discussed, including sun protective clothing and broad-spectrum SPF 30+ sunscreen use --Concerning signs of skin cancer discussed, including asymmetry, border irregularity, color variegation, diameter >6mm, and evolution --Advised to monitor for worrisome changes, such as inflammation, itch, pain, bleeding, persistent growth 2. Post-inflammatory erythema --Recommend sun protection and moisturizer --Will fade with time 3. Mosher angiomas --Reassured RTC prn Lillian Foreman MD Provider Relations Specialist Department of Dermatology [facility] We are following the [place] Board of [employer]ers guideline in safely seeing patient during the COVID-19 Pandemic, which include: 1. A mask must be worn by both the patient and physician or the physicians delegate when in proximity of the patient (meaning less than a 6-foot distance between the patient and the physician or the physicians delegate); 2. Everyone must follow policies that the physician, medical and healthcare practice, or facility has in place regarding COVID-19 screening and testing and/or screening patients; 3. Before any patient encounter, patients must be screened for potential symptoms of COVID-19 or verified they were previously screened within last 20 days; and 4. That any medical procedure or surgery involving the mucous membranes, including the respiratory tract, with a high risk of aerosol transmission, the minimum safety equipment used by a physician or physicians delegate should include N95 masks or an equivalent protection from aerosolized particles and face martel documented in this encounter Plan of Treatment Health Maintenance Due Date Last Done Comments TETANUS SHOT (ADULT) 1997 BMI FOLLOW UP PLAN 2000 HIV SCREENING 2000 CERVICAL CANCER SCREENING 3 YEAR FOLLOW UP 2003 FLU VACCINE > 6 MONTHS 05/17/2020 documented as of this encounter Results Not on filedocumented in this encounter Visit Diagnoses Diagnosis Multiple benign melanocytic nevi - Prima ry Lentigines Other dyschromia Postinflammatory hyperpigmentation Dyschromia, unspecified Mosher angioma Nevus, non-neoplastic documented in this encounter Insurance Payer Benefit Plan / Subscriber ID Effective Dates Phone Addre ss Type Group [facility] - xxxxxxxxxxx 2019-Present [address] [place] [address] documented as of this encounter
--- OUTSIDE RECORDS SUMMARY | 2020-04-15 07:18 | XMS REPORT ---
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 sexual intercourse: 20. Sexually Active: Yes. Pt became active at 20 " social history reviewed E&M reviewed today Liliana Mendoza " sexual orientation Bisexual Allie Mendoza " is there any chance that No Allie Mendoza you could be ? " passive cigarette smoke No Allie Guaman il exposure " smoking status never smoker Allie Mendoza time of call 10/26/2017 3:44 PM Mercedes kelsey time of call 04/27/2017 10:38 AM Juan Todd Exercise Program Referral Chon Yuen " Weight Management Chon Yuen Counseling Provided " Nutrition intervention Chon millan " drug use, illicit Currently Riana Pinto " alcohol use Currently Rianajoy Pinto " social history E&M Dating. Pt [facility] great [facility] N ot [facility]. Born in [facility]. City: [place] . [place]: [place]. 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 Pt works PT at [employer] S ex at : Female. Sexual orientation: Bisexual. Gender identity: Female. Gender of partner(s): Male and Female. Age of first sexual intercourse: 20. Sexually Active: Yes. Pt became active at 20 " social history reviewed E&M reviewed today Ji Pinto " is there any chance that No Riana barker you could be ? " passive cigarette smoke No Riana tapiados exposure " smoking status former smoker Riana Pinto drug use, illicit Currently Riana Pinto " alcohol use Currently Riana Pinto " social history E&M Dating. Pt has great family J janeyrose Pinto relationship N ot homeless. Born in [place]. City[place] . [place]: [place]. 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 Pt works PT at [employer] S ex at : Female. Sexual orientation: Bisexual. Gender identity: Female. Gender of partner(s): Male and Female. Age of first sexual intercourse: 20. Sexually Active: Yes. Pt became active at 20 " social history reviewed E&M reviewed today Ji Pinto " is there any chance that No Riana barker you could be ? " passive cigarette smoke No Riana terrazas exposure " smoking status former smoker Riana Pinto Exercise Program Referral Chon garg " Weight Management Chon Garcia Counseling Provided " Nutrition intervention Chon beverly " social history - sexual Pt became active at 20 J jeyson Richard practice " home/family situation, Pt lives in a house with Tamara Coynerez assessment Partners " family support Pt has great family Tamara Omid gallardo relationship " patient considered to be No Tamara Ivoryierrez homeless " drug use, illicit Currently Tamara busch " alcohol use Currently Tamara Ivorynadjare nathalia " social history E&M Dating. Pt has great family Glo Ivoryierrez relationship N ot homeless. Born in [facility]. City: [place] . State: [place]. 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 Pt works PT at [employer] S ex at : Female. Sexual orientation: Bisexual. Gender identity: Female. Gender of partner(s): Male and Female. Age of first sexual intercourse: 20. Sexually Active: Yes. Pt became active at 20 " social history reviewed E&M reviewed today Sonam Coynerez " sexual orientation Bisexual Tamara Peters rrjorge " is there any chance that No Tamara Richard you could be ? " passive cigarette smoke No Tamara Ivoryierrez exposure " smoking status former smoker Tamara Coynere z social history reviewed E&M reviewed today [facility] " social history E&M Born in [facility]. City: [facility] . State: [place]. 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 Sexual orientation: Bisexual. Gender identity: Female. Age of first sexual intercourse: 20. Sexually Active: Yes. 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 FUNCTIONAL STATUS No Information Available MENTAL STATUS Date Observation Value Provider food appetite Good Lesley Vasquez mental status assessment, good Brandon Hwang judgment " insight (mental status exam) good Chr chelsey Hwang " Mental Status Exam: adequate fund of Mya alejandro intelligence information, intact memory processes, oriented to person, oriented to place, oriented to time, oriented to situation, oriented to reality " hallucinations none Mya Hwang " thought content (mental lucid Emilie Hwang status exam) (E&M) " mental status assessment, able to abstract, Shady Hwang process goal-directed, logical " mental status assessment, alert, attentive, annalisa r Mya Hwang sensorium " affect (mental status exam) congruent, normal Danii Hwang intensity, normal range " mood (mental status exam) pleasant, improving Ch ristine Hwang " mental status assessment, normal flow, normal pa ceMya speech activity normal pressure, normal rate, normal tone, normal volume, spontaneous " mental status assessment, sitting (telehealth) C ricardo Hwang motor activity " behavior (mental status exam) appropriate, bigg dMya cooperative, good eye contact, polite, responsive " mental appearance (mental adequate hygiene, Shady Hwang status exam) appropriate dress, looks like stated age, neat, hair dyed multicolor mental status assessment, good Brandon Hwang judgment " insight (mental status exam) good Chr chelsey Hwang " Mental Status Exam: adequate fund of Mya alejandro intelligence information, intact memory processes, oriented to person, oriented to place, oriented to time, oriented to situation, oriented to reality " hallucinations none Mya Hwang " thought content (mental lucid Emilie Hwang status exam) (E&M) " mental status assessment, able to abstract, Shady Hwang process goal-directed, logical " mental status assessment, alert, attentive, annalisa r Mya Hwang sensorium " affect (mental status exam) congruent, normal coby Hwang intensity, normal range, anxious " mood (mental status exam) anxious, depressed Chr istine Jaiden " mental status assessment, normal flow, normal pa ce, Mya Hwang speech activity normal pressure, normal rate, normal tone, normal volume, spontaneous " mental status assessment, normal gait, normal [facility] motor activity posture " behavior (mental status exam) appropriate, bigg dMya cooperative, good eye contact, polite, responsive " mental appearance (mental adequate hygiene, Shady Hwang status exam) appropriate dress, looks like stated age, neat, hair dyed multicolor " anxiety worry a lot, sleep Mya valerio disturbance, many physical complaints mental status examination: oriented to time, jillian ce, Minnie Wilfrid orientation E&M and person " assessment of mood and affect no depression, anx iety, or Minnie Wilfrid E&M agitation " assessment of judgment and intact Shahbaz trejo Wilfrid insight E&M " Generalized Anxiety Disorder 0 Wilkerson barbara Reji Questionnaire - Question 2 " Generalized Anxiety Disorder 1 Wilkerson barbara Reji Questionnaire - Question 1 Generalized Anxiety Disorder 0 Saul my Pinto Questionnaire - Question 2 " Generalized Anxiety Disorder 0 Saul my Pinto Questionnaire - Question 1 Generalized Anxiety Disorder 0 Saul my Pinto Questionnaire - Question 2 " Generalized Anxiety Disorder 0 Saul my Pinto Questionnaire - Question 1 assessment of mood and affect no depression, anx iety, or Eddie Jose E&M agitation " assessment of judgment and intact Eddie Jose insight E&M " Generalized Anxiety Disorder 0 Jesi vidya Richard Questionnaire - Question 2 " Generalized Anxiety Disorder 0 Jesi vidya Richard Questionnaire - Question 1 assessment of judgment and intact Leah na Shrikanth insight E&M " assessment of mood and affect no depression, anx iety, or Luma Shrikanth E&M agitation " Generalized Anxiety Disorder 2 Ine z Yandel Questionnaire - Question 2 " Generalized Anxiety Disorder 2 Ine nathalia Humphries Questionnaire - Question 1 MEDICAL EQUIPMENT No Information Available FAMILY HISTORY No Information Available INSURANCE PROVIDERS Payer name Policy type / Coverage type Covered part y ID Sliding Fee - Cat 1 Commercial insurance company [id number] Sliding Fee - Cat 1 Commercial insurance company [id number] [employer] [place] [employer]) Medicaid [id number] Sliding Fee - Cat 1 Commercial insurance company [id number] ADVANCE DIRECTIVES No Information Available TREATMENT PLAN Date Name Gc/Ct/Trich Urine Culture, Routine TSH Rfx on Abnormal to Free T4 Rubella Antibodies, IgG Pap w/HPV w rflx 1618/45 (3 0+) Lipid Panel Hemoglobin A1c Comp. Metabolic Panel (14) CBC With Differential/Platel et Pap w/HPV w rflx 16/18/45 (3 0+) HSVAb+HSVIgM HSV 1 and 2-Specific Ab, IgG HSV Culture and Typing RPR, Rfx Qn RPR/Confirm TP HIV 1/2 ANTIGEN/ANTIBODY, FO URTH GENERATION W/RFL HBsAg Screen HCV Antibody Gc/Ct/Trich CBC With Differential/Platel et Testosterone, Serum HYDROXYPROGESTERONE 17-D Prolactin FSH and LH DHEA-S CBC With Differential/Platel et ROSALINDA w/Reflex Rheumatoid Arthritis Factor HBsAg Screen HIV 1/2 ANTIGEN/ANTIBODY, FO URTH GENERATION W/RFL HCV Antibody RPR, Rfx Qn RPR/Confirm TP - - Nutrition Initial Assessment Ind (15 Min) - 31199 Est Patient Exp Problem - 99 213 Sub Acute Care Nurse Diagnostic evaluation with sav tanner - 88960 Sub Acute Care Nurse Est Patient Exp Problem - 99 213 Venipuncture Est Patient Well Exam (18 - 39 Yrs) - 20954 Venipuncture Est Patient Well Exam (18 - 39 Yrs) - 81247 Est Patient Problem Focus - 69538 New Patient Intermediate Opt h - 51263 Est Patient Exp Problem - 99 213 New Patient Detailed - 28220 HISTORY OF PROCEDURES Procedure Date Procedure Name Provider Procedure Notes Status Diagnostic evaluation with Mya Hwang completed medical - 53461 Venipuncture Minnie Yuen completed Venipuncture Minnie Yuen completed New Patient Intermediate Gladys austin ompleted Opth - 90200 GOALS No Information Available HEALTH CONCERNS No Information Available
[2020-04-15 07:44] LABS: Specific Gravity 1.015 (1.005-1.030)
[2020-04-15] MEDS ORDERED: Ringers Lactate 1,000 ML IV ONE ×2 (08:09→09:54)
[2020-04-15] MEDS ORDERED: FENTANYL CITR 250 MCG/5 ML ONE (08:17)
[2020-04-15] MEDS ORDERED: MIDAZOLAM HCL 2 MG/2 ML INJ ONE (08:17)
[2020-04-15] MEDS ORDERED: LIDOCAINE 2% MPF 5 ML VIAL ONE (08:17)
[2020-04-15] MEDS ORDERED: dexAMETHasone 10 MG/ML VIAL ONE (08:17)
[2020-04-15] MEDS ORDERED: propofoL 200 MG/20 ML VIAL IV ONE (08:17)
[2020-04-15] MEDS ORDERED: ONDANSETRON 4 MG/2 ML VIAL ONE ×2 (08:18→13:44)
[2020-04-15] MEDS ORDERED: ROCURONIUM 50 MG/5 ML VIAL IV ONE (08:18)
[2020-04-15] MEDS ORDERED: SCOPOLAMINE HYDROBROMIDE PATCH TD ONE (08:26)
[2020-04-15] MEDS ORDERED: BUPIVACAINE 0.25% PF 30 ML VIAL ONE (08:45)
[2020-04-15] MEDS ORDERED: NA CHLORIDE 0.9% 1,000 ML ONE (08:45)
[2020-04-15] MEDS: Levofloxacin500mg IV 500 MG/100 ML BAG IV ONE ×2 (08:56→09:05)
[2020-04-15] MEDS ORDERED: EPHEDRINE SULF 50 MG/ML VIAL ONE (09:18)
[2020-04-15] MEDS ORDERED: GLYCOPYRROLATE 0.2 MG/ML SYR ONE (09:21)
[2020-04-15] MEDS ORDERED: NS 0.9% VIAL 10 ML ONE ×2 (09:56)
[2020-04-15] MEDS: VASOPRESSIN 20 UNIT/ML VIAL ONE ×2 (10:02→10:42)
[2020-04-15] MEDS: METHYLENE BLUE 0.5% 10 ML AMP ONE ×2 (11:37→12:20)
[2020-04-15] MEDS: Ringers Lactate 1,000 ML IV ONE ×2 (11:42→11:47)
[2020-04-15] MEDS ORDERED: KETOROLAC 30 MG/ML INJ ONE (12:24)
[2020-04-15] MEDS ORDERED: MORPHINE 10 MG/ML VIAL ONE (13:02)
[2020-04-15] MEDS: HYDROMORPHONE HCL 1 MG/ML INJ ONE ×2 (13:40→13:48)
[2020-04-15] MEDS ORDERED: HYDROCODONE/APAP 5/325 MG TAB ONE (14:54)
[2020-04-15 14:57] VITALS: TEMP 97.6; O2SAT 100
[2020-04-15] MEDS ORDERED: IBUPROFEN 200 MG TAB PO ONE (15:32)
[2020-04-15] MEDS ORDERED: IBUPROFEN 400 MG TAB ONE (15:33)
[2020-04-15 16:28] VITALS: BP 120/60
--- NOTE | 2020-04-17 14:44 | OP ---
Date of Procedure: 04/15/2020 Surgeon: Tamika Suero MD Caustic Strength Inspector: Ginna Burgess. Preoperative Diagnoses: Abnormal uterine bleeding, dysmenorrhea, dyspareunia, and pelvic pain. Postoperative Diagnoses: Abnormal uterine bleeding from leiomyomata, endometriosis, dysmenorrhea, dy spareunia, and pelvic pain. Anesthesia: General endotracheal. Procedures Performed: 1.Diagnostic hysteroscopy. 2.Diagnostic laparoscopy and endometriosis excision. 3.Laparoscopic myomectomy. 4.Chromotubation. Specimens: Endometrium from right lateral wall, left uterosacral ligament and lateral wall anterior cul-de-sac and 2 sets of leiomyomata, 1 was small and the other multiple leiomyomata coalesced into l arge one and this is from the left lateral wall and broad ligament. Estimated Blood Loss: Less than 50. Complications: No complications. Drains: No drains. Condition: Patient's condition stable. Findings: 1.Endometriosis was found extensively in this patient. Anterior cul-de-sac had endometriosis with t he bladder peritoneum being scarred and bladder pulled onto the lower aspect of the uterus. Then, en dometrium in the right lateral wall posterior to the broad ligament above the level of the ureter and medial and inferior to it. The uterosacral ligament in the distal part was completely encased with an endometriosis nodule and this nodule scarred the distal ureter as well as the nodule continues ont o the lower wall of the uterus. On the left side, the uterosacral ligament had endometriosis, some e ndometriosis on the serosa of the posterior wall of the uterus as well. The rest of the implants wer e removable excepting the right distal uterosacral nodule, which would be difficult to remove with di ssection of the uterosacral ligament and detachment of it from the uterus and also since this is scar red to the uterus itself had been difficult without getting part of the wall of the uterus, which wou ld not be desirable at this level for her from her support standpoint. So, cauterization of this nod ule was performed on the surface as best as possible. Understanding that the entire nodule has not b een cauterized. The ureter was protected in the entire procedure. 2.There was a large leiomyoma between the tube and the round ligament. This was large and was going into the broad ligament arising from the anterolateral wall of the uterus. Then, there was another myoma on the posterior wall. These are the only ones that were amenable to myomectomy. 3.Both tubes were patent on chromotubation readily without any distention or problems after the myom ectomy was performed. The chromotubation was done. 4.The uterine cavity was undistorted, unremarkable. No fibroids seen. Description Of Procedure: After informed consent was verified, patient was given a dose of antibioti c. She was taken back to the OR, placed in a supine fashion on the operating table. General anesthe van given, placed in a dorsal lithotomy position. Arms tucked by the side. Abdomen, vulva, vagina, and perineum were prepped and draped in a sterile fashion. Olmstead placed to drain the bladder. Specu lum placed to expose the cervix. Anterior lip grasped with Allis clamps and slimline diagnostic hyst eroscope used to pass through the cervical canal directly into the uterine cavity. Cavity unremarkab le, undistorted. No fibroids. Scope removed. Diagnostic VCare introduced. This area was then drap ed. Olmstead attached to a drainage bag. A 1 cm infraumbilical incision made with a scalpel using the open laparoscopy technique. Fascia inci sed and tagged with 0 Vicryl sutures. Peritoneum entered sharply. S-retractors were placed. Dia introduced. Cavity insufflated and site of entry checked with the camera. No evidence of any injur y. After survey of the upper abdominal surfaces, no evidence of any endometriotic implants in the perito neum, above the liver, on the upper abdominal cavity, omentum, bowel. Patient was placed in the [place] position. Appendix was visualized, unremarkable. A 5 mm left lower quadrant and right lower quadrant ports were placed under direct vision and a 10 mm suprapubic port was placed as well after having investigated the entire pelvic cavity and found the findings as dictated above. Plan was to perform the endometriosis excision first followed by the shravan mectomy. The bowel was retracted with epiploicae sutured for retraction with a 3-0 Monocryl and pulled out wit mary Reza from the left upper quadrant incision. Once this was held for retraction, there wa s excellent exposure of the posterior pelvic cavity. The first implant that was excised was on the m id uterosacral ligament medial to the ureter. An incision was made with the laparoscopic scissors pa rallel to the ureter here. This was dissected laterally and the implant medially. The implant was e xcised with the help of the LigaSure. Lateral and superior to this was another implant. The peritoneum was picked up and this implant was excised after undermining the underlying tissues and it from them with the help of monopol ar needle. Then, at the level of the uterosacral ligament nodule, an incision was made on the perito neum above the level of the ureteric tunnel and the incision carried medially carefully avoiding the uterine artery that was running above it. LigaSure was used here to perform the dissection and get t o the level of the nodule. Inferior dissection was carried to the level of the ureter where it was s carred to the uterosacral distally and I stop right there and took the part of the nodule out. Then, going medial and superior to the nodule, the extent was onto the lower myometrium. So, this was mar ked out, to be able to be grasped with graspers and then bipolar paddle was used to cauterize this no dule from the superior and medial aspect. Once this was done satisfactorily without having to dissec t the uterosacral ligament itself from the ureter, this was completed, and attention was directed to the left nodule. This was picked up and the peritoneal incision made with scissors superiorly. The ureteric tunnel was dissected laterally and was away from the vessels and with help of the monopolar needle, this was excised. Then, on the anterior cul-de-sac peritoneum, incision was made with the he lp of scissors and the implants were removed with the help of the LigaSure. Between the scar tissue, the fold at the bladder over the uterus, there could be more endometriosis which was cauterized with the tip of the bipolar paddle. Adhesions were taken down and then attention was directed to the shravan mectomy. After injecting dilute vasopressin 20 units mixed with 20 mL of normal saline with a 21-gauge long sp inal needle, all around the base of the myoma, especially paying attention to the lateral aspect of t he uterus. An incision was made with the help of the monopolar needle in a transverse fashion over t he uterine serosa on top of the fibroid went through the myometrial layers as well all the way to the level of the capsule, as this was pseudocapsule of the fibroid. Once I got into the correct plane, this incision was extended laterally and medially. At least, a 7 cm incision was made. Then, a sing le-tooth tenaculum was used through the suprapubic port and the fibroid was grasped and slowly dissec tion was performed to separate the fibroid and it was shelled out. There were multiple small fibroid s within it and they had to be grasped independently in order for me to dissect them all at 1 time. The dissection went all the way close to the uterine wall near the base of the mesosalpinx, but it wa s not close enough to the tubal opening. Once all this was shelled out that the base of it was caute rized with the bipolar LigaSure and the entire specimen was removed, detached and placed in the right lower quadrant. There was thorough irrigation performed here and there was excellent hemostasis. C losure was performed with the help of a 2-0 V-Loc. I closed the defect in 3 layers starting at the i nner most aspect and using the same suture from 1 side to the other. After completion of the third l haven, a serosal closure was performed with a baseball stitch using [address] 1 needle, tied with intracorporeal knots laterally. There was good serosal apposition as well in this area. There was no entry into the uterine cavity or endometrial cavity at any point and this was later verified w ith the chromotubation as well. There was no seepage. No bluish drainage here, so I do not believe that she needs a delivery if she had a conception and carry the . There was another myoma on posterior wall. This was removed. Chromotubation was performed with methylene blue, diluted in 50 mL of normal saline injected. There was excellent flow from both tubes. After thorough irrigation and suction were performed, the specimen was placed in a bag. The small my stefania was removed through this and the rest of the myomata and cluster were placed in the bag. Bag was closed and the strings pulled out through the suprapubic incision. All the trocars were removed und er direct vision. They were injected at the skin and the fascia with Marcaine at the beginning and a t the end. The gas was desufflated. Dia removed. The desufflation was done in a close fashion. After the Dia was removed, the fascia was closed with the tagged 0 Vicryl sutures, tied to each o ther and subcuticular closure at all incisions with interrupted 4-0 Vicryl. The suprapubic incision was extended to about 4 cm. The fascia incised with the Bovie. The peritoneal incision extended sha rply. The myoma with the bag was pulled out. The bag had to be opened up and the myoma morcellated after opening the bag without any spillage and entire specimen was removed with the bag. Then, perit oneum closed with the help of Monocryl 3-0. Then, fascia closed with the help of Vicryl 0 in a dominga nuous running fashion. Thorough irrigation and suction performed, and the subcutaneous tissues and t he skin was closed with the help of continuous running 4-0 Vicryl sutures. The VCare and Olmstead were removed. Instrument, needle, and sponge counts were done and were correct at the end of the case. P atient tolerated the procedure well. EBL was less than 50. The suture for retraction of the bowel w as taken down before the closure of the port sites and there was no evidence of any injury. Instrume nt, needle, and sponge counts were correct. Patient was taken back to the PACU in stable condition. All the findings were discussed with her mother. She has a 1 week followup appointment. MARSHALL/NATASHA Voice ID: [id number] Report ID: [id number]
== END 2020-04-15 16:40 | disposition home or self-care (01) ==
LOC: OR 07:08
PROVIDERS: ATTEND Obstetrics & Gynecology
PROC: 0UB94ZZ Excision of Uterus, Percutaneous Endoscopic Approach (ICD-10-PCS; 2020-04-15)
PROC: 0UBF4ZZ Excision of Cul-de-sac, Percutaneous Endoscopic Approach (ICD-10-PCS; 2020-04-15)
PROC: 0UB94ZZ Excision of Uterus, Percutaneous Endoscopic Approach (ICD-10-PCS; 2020-04-15)
PROC: 3E0P8KZ Introduction of Other Diagnostic Substance into Female Reproductive, Via Natural or Artificial Opening Endoscopic (ICD-10-PCS; 2020-04-15)
PROC: 0UJD8ZZ Inspection of Uterus and Cervix, Via Natural or Artificial Opening Endoscopic (ICD-10-PCS; principal; 2020-04-15 08:30)
DX: D25.9 Leiomyoma of uterus, unspecified (principal); N93.9 Abnormal uterine and vaginal bleeding, unspecified; N94.6 Dysmenorrhea, unspecified; N94.12 Deep dyspareunia; N80.0 Endometriosis of uterus; N80.8 Other endometriosis; N93.0 Postcoital and contact bleeding; N92.6 Irregular menstruation, unspecified; Z11.59 Encounter for screening for other viral diseases; E04.9 Nontoxic goiter, unspecified; F41.9 Anxiety disorder, unspecified; F32.9 Major depressive disorder, single episode, unspecified; Z79.899 Other long term (current) drug therapy; Z87.891 Personal history of nicotine dependence; Z80.49 Family history of malignant neoplasm of other genital organs; Z80.3 Family history of malignant neoplasm of breast
CPT/HCPCS: 85025; 36415; 86900; 86850; 81025 ×2; 86901; 88305; 58545; 58662; 58555; 58350; U0002; J2704; J2250; J3010; J1100; J1170; J7120 ×3; J7030; J2405 ×2; 81003; 81015

== ENCOUNTER 2022-07-21 15:14 | Inpatient (IN) | payer BC ==
--- OUTSIDE RECORDS SUMMARY | 2022-07-21 15:21 | XMS REPORT | Continuity of Care Document ---
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 [facility] [id number] Legacy 00:00:00 00:00:00 Visit Mya 54646 [facility] 2021-06-04 2021-06-[address] [facility] [id number] Univers 13:41:00 17:10:00 Karla Lopes 350.1.13.10 ity [facility] 4.2.7.2.686 [facility] [id number] [facility] 084 Branch 2021-06-04 2021-06-04 Emergency X [facility] ERT [id number] Univers 13:33:00 13:33:00 ity of [facility] 2021-05-07 2021-05-11 Office Jaiden [facility] [id number] Legacy 00:00:00 00:00:00 Visit Mya 32118 Comm uni ty Health 2021-02-05 2021-02-06 Office Jaiden [facility] [id number] Legacy 00:00:00 00:00:00 Visit Mya 49081 [facility] uni ty Health 2020-12-06 2020-12-10 [facility] [id number] Legacy 00:00:00 00:00:00 Visit Mya 66515 [facility] uni ty Health 2020-05-27 2020-06-01 Office Jaiden [facility] [id number] Legacy 00:00:00 00:00:00 Visit Mya 45296 [facility] uni ty Health 2020-03-04 2020-03-04 Office Lillian Foreman [id number] 13:56:39 14:11:39 Visit AMBULATOR 350.1.13.21 Y 0.2.7.2.686 [id number] 300 2020-03-04 2020-03-04 Office Lillian Foreman [id number] [id number] [facility] 13:56:39 14:11:39 Visit AMBULATOR 350.1.13.21 [place] Y 0.2.7.2.686 of [id number] [facility] eleonora 300 e 2020-02-21 2020-02-26 [facility] [id number] Legacy 00:00:00 00:00:00 Visit Mya 09961 [facility] uni ty Health 2020-02-13 2020-02-13 Outpatient [facility]H [facility] [id number] [id number] [facility] 00:00:00 00:00:00 [id number] 2020-01-18 2020-01-18 Outpatient SLEH [facility] [id number] 8-2 [facility] 00:00:00 00:00:00 [id number] 2019-12-28 2019-12-28 Outpatient SLEH [facility] [id number] 8-2 [facility] 00:00:00 00:00:00 [id number] 2019-12-20 2019-12-25 Office Mya Hwang [facility] [id number] Legacy 00:00:00 00:00:00 Visit [facility]ley [facility] 97771 [facility] 2019-12-14 2019-12-14 Outpatient [facility]H [facility] [id number] 8-2 [facility] 00:00:00 00:00:00 [id number] 2019-12-07 2019-12-07 Outpatient SLEH [facility] [id number] 8-2 [facility] 00:00:00 00:00:00 [id number] 2019-10-30 2019-10-30 Outpatient MICKEY [facility] RAD BP0 [id number] [facility] 08:00:00 08:00:[address] [place] [address] 2019-08-07 2019-08-07 Ambulatory nullFlavo MNA [id number] Memoria 15:00:00 15:00:00 Pre-Reg r Neurology 05 l Dennis Rian 2019-08-07 2019-08-07 Outpatient MHIE MHIE [id number] Memoria 10:00:00 10:00:00 05 shala Modi 2019-08-07 2019-08-07 Outpatient Edgard, MHMISCHER MHMISCHER [id number] 10:00:00 10:00:00 Freddy 05 Sandeep 2019-04-03 2019-04-04 Outpatient nullFlavo MNA [id number] Memoria 15:00:00 04:59:59 r Neurology 04 l Dennis Modi 2019-04-03 2019-04-03 Outpatient Edgard, MHMISCHER MHMISCHER [id number] 10:00:00 23:59:59 Freddy 04 Sandeep 2019-04-03 2019-04-03 Outpatient MHIE MHIE [id number] Memoria 10:00:00 10:00:00 04 shala Modi 2019-01-02 2019-01-02 Outpatient MHIE MHIE [id number] Memoria 10:15:00 10:15:00 03 shala Modi 2018-11-22 2018-11-23 Outpatient nullFlavo MNA [id number] Memoria 21:45:00 05:59:59 r Neurology 02 l Dennis Endeavor 2018-11-22 2018-11-22 Outpatient Edgard, MHMISCHER MHMISCHER [id number] 15:45:00 23:59:59 Freddy 02 Sandeep 2018-11-22 2018-11-22 Outpatient MHIE MHIE [id number] Memoria 15:45:00 15:45:00 02 shala Endeavor 2018-11-15 2018-11-15 Ambulatory nullFlavo MNA [id number] Memoria 16:45:00 16:45:00 Pre-Reg r Neurology 01 l Dennis Endeavor 2018-11-15 2018-11-15 Outpatient MHIE MHIE [id number] Memoria 10:45:00 10:45:00 01 shala Endeavor 2018-11-15 2018-11-15 Outpatient Edgard, MHMISCHER MHMISCHER [id number] 10:45:00 10:45:00 Freddy 01 Sandeep 2018-10-18 2018-10-19 Outpatient nullFlavo MNA [id number] Memoria 16:00:00 05:59:59 r Neurology 00 l Dennis Endeavor 2018-10-18 2018-10-18 Outpatient Edgard, MHMISCHER MHMISCHER [id number] 10:00:00 23:59:59 Freddy 00 Sandeep 2018-10-18 2018-10-18 Outpatient MHIE MHIE [id number] Memoria 10:00:00 10:00:00 00 shala Endeavor 2018-07-05 2018-07-05 Office Minnie Yuen [facility] [id number] Legacy 00:00:00 00:00:00 Visit Allie Mendoza 93955 Co mmuni [facility] 2017-05-24 2017-05-25 Office Addy Villeda [facility] Enc ounter/ Legacy 00:00:00 00:00:00 Visit Nayeli Lemons [id number] [id number] Communi 775179 [facility] 2017-04-20 2017-04-20 Office Addy Villeda [facility] Enc ounter/ Legacy 00:00:00 00:00:00 Visit Gwen Blackwell [id number] [facility] 364385 [facility] 2017-04-20 2017-04-20 Office Minnie Yuen [facility] [id number] Legacy 00:00:00 00:00:00 Visit Riana Pinto 54307 [facility] 2017-04-13 2017-04-13 Office Minnie Yuen [facility] [id number] Legacy 00:00:00 00:00:00 Visit Riana Pinto 76344 [facility] Tamara Richard [facility] 2017-03-17 2017-03-21 Office Villeda, Addy [facility] Enc ounter/ Legacy 00:00:00 00:00:00 Visit Gwen Blackwell 95417 79648 [facility] 011895 [facility] 2017-03-17 2017-03-21 Office Addy Villeda [facility] Enc ounter/ Legacy 00:00:00 00:00:00 Visit Yonatan Lemonsa 1811 [id number] [facility] 067314 [facility] 2017-03-11 2017-03-11 Office Gladys Fonseca [facility] [id number] Legacy 00:00:00 00:00:00 Visit Sherrill Galan 39408 [facility] 2017-02-17 2017-02-21 Office Aravind Mederos [facility] Enco unter/ Legacy 00:00:00 00:00:00 Visit Marybeth Bennett [id number] 669 [facility] Curt Varghese 401782 [facility] 2016-11-15 2016-11-29 Office Eddie Garcia [facility] [id number] Legacy 00:00:00 00:00:00 Visit Lani Snell 95142 [facility] Tamara Richard [facility] 2016-11-10 2016-11-14 Office Luma Collado [facility] [id number] Legacy 00:00:00 00:00:00 Visit Debby Humphries 18075 [facility] Results Test Description Test Time Test Comments Results Result Comments Source URINALYSIS 2021-06-04 20:22:03 Test Item Value Reference Range Interpretation Comme nts APPEARANCE (test code = Clear Clear 4568832302) COLOR (test code = 0353716900) Yellow Yellow PH (test code = 7108145380) 4.8-8.0 SP GRAVITY (test code = 1.003-1.030 3592403283) GLU U QUAL (test code = Normal Normal 7457008702) BLOOD (test code = 9176169936) 2+ Negative A KETONES (test code = 7179459281) Negative Negative PROTEIN (test code = 2887-8) Negative Negative UROBILIN (test code = Normal Normal 4096356714) BILIRUBIN (test code = Negative Negative 5759697866) NITRITE (test code = 4099713305) Negative Negative LEUK LEONORA (test code = Negative Negative 4715173925) RBC/HPF (test code = 8427640279) See_Comment H [Automated message] The system which ge nerated this result transmit francisco reference range: 0 - 3 HP F. The reference range was not used to interpret th is result as normal/abnormal . WBC/HPF (test code = 9828538860) See_Comment [Automated message] The system which ge nerated this result transmit francisco reference range: 0 - 5 HP F. The reference range was not used to interpret th is result as normal/abnormal . BACTERIA (test code = Moderate Negative A 7415762046) MUCOUS (test code = 1336332597) Slight Negative LPF A SQ EPITH (test code = HPF 9942212226) HYAL CAST (test code = See_Comment [Aut omated message] The 4304679718) system which [employer] nerated this result transmit francisco reference range: <=2 LPF. The reference range was not u sed to interpret this result as normal/abnormal . GRAN CASTS (test code = See_Comment [Au tomated message] The 2361902248) system which [employer] nerated this result transmit francisco reference range: <=1 LPF. The reference range was not u sed to interpret this result as normal/abnormal . Lab Interpretation (test code = Abnormal 40298-4) [facility] (NA, K, CL, CO2, GLUCOSE, BUN, CREATININE, CA)2021-06-04 20:22:03 Test Item Value Reference Range Interpretation Comments NA (test code = 137 mmol/L 135-145 5938391756) K (test code = 4.1 mmol/L 3.5-5.0 7344312655) CL (test code = 103 mmol/L 98-108 9533941360) CO2 TOTAL (test code 26 mmol/L 23-31 = 4176774034) AGAP (test code = 2-16 4563849653) BUN (test code = 13 mg/dL 7-23 5227622035) GLUCOSE (test code = 97 mg/dL 70-110 7879855279) CREATININE (test code 0.86 mg/dL 0.50-1.04 = 8777928805) CALCIUM (test code = 9.6 mg/dL 8.6-10.6 4122322635) eGFR (test code = mL/min/1.73m2 7417761777) [place] (test code = [place]) Association of Glomerular Filtration Rate (GFR) and Staging of Kidney Disease* + + +- +| GFR (mL/min/1.73 m2) ?| With Kidney Damage ?| ?Without Kidney Damage+ ------+ ----+ ------+| ?>90 ?| ?Stage one ?| ? Normal ?+ -+ + -+| ?60-89 ?| ?Stage two ?| ? Decreased GFR ? + + +- +| ?30-59 ?| ?Stage three ?| ? Stage three ? + + +- +| ?15-29 ?| ?Stage four ? | ? Stage four ?+ -+ + -+| ?<15 (or dialysis) ? ?| ?Stage five ? | ? Stage five ?+ -+ + -+ *Each stage assumes the associated GFR level has been in effect for at least three months. ?Stages 1 to 5, with or without kidney disease, indicate chronic kidney disease. Notes: Determination of stages one and two (with eGFR >59mL/min/1.73 m2) requires estimation of kidney damage for at least three months as defined by structural or functional abnormalities of the kidney, manifested by either:Pathological abnormalities or Markers of kidney damage (including abnormalities in the composition of the blood or urine or abnormalities in imaging tests). [facility] WITH [id number] 20:10:25 Test Item Value Reference Range Interpretation Comments WBC (test code = See_Comment H [Automated 6690-2) message] The sy stem which generated this result transmitted reference range : 4.30 - 11.10 10*3/?L. The reference range was not used to interpret this result as normal/abnormal . RBC (test code = See_Comment [Automated 789-8) message] The sy stem which generated this result transmitted reference range : 3.93 - 5.25 10*6/?L. The reference range was not used to interpret this result as normal/abnormal . HGB (test code = 14.5 g/dL 11.6-15.0 718-7) HCT (test code = 42.9 % 35.7-45.2 4544-3) MCV (test code = 90.3 fL 80.6-95.5 787-2) MCH (test code = 30.5 pg 25.9-32.8 785-6) MCHC (test code = 33.8 g/dL 31.6-35.1 786-4) RDW-SD (test code = 47.5 fL 39.0-49.9 71608-5) RDW-CV (test code = 14.3 % 12.0-15.5 788-0) PLT (test code = See_Comment [Automated 777-3) message] The sy stem which generated this result transmitted reference range : 166 - 358 10*3/ ?L. The reference r rafael was not used to interpret this result as normal/abnormal . MPV (test code = 10.7 fL 9.5-12.9 31200-2) NRBC/100 WBC (test See_Comment [Automat ed code = 6059781414) message] The system which generated this result transmitted reference range : 0.0 - 10.0 /100 WBCs. The refer ence range was not u sed to interpret th is result as normal/abnormal . NRBC x10^3 (test code <0.01 See_Comment [Auto mated = 4006154814) message] The s ystem which generated this result transmitted reference range : 10*3/?L. The reference range was not used to interpret this result as normal/abnormal . GRAN MAT (NEUT) % 64.7 % (test code = 770-8) IMM GRAN % (test code 0.40 % = 8180958137) LYMPH % (test code = 27.2 % 736-9) MONO % (test code = 6.3 % 5905-5) EOS % (test code = 0.9 % 713-8) BASO % (test code = 0.5 % 706-2) GRAN MAT x10^3(ANC) 7.45 10*3/uL 1.88-7.09 H (test code = 1991554393) IMM GRAN x10^3 (test 0.05 10*3/uL 0.00-0.06 code = 2733540744) LYMPH x10^3 (test code 3.14 10*3/uL 1.32-3.29 = 731-0) MONO x10^3 (test code 0.73 10*3/uL 0.33-0.92 = 742-7) EOS x10^3 (test code = 0.10 10*3/uL 0.03-0.39 711-2) BASO x10^3 (test code 0.06 10*3/uL 0.01-0.07 = 704-7) Lab Interpretation Abnormal (test code = 16249-5) [facility] [id number] 12:33:00Addendum BeginsREPORT STATUS:A Addendum: The study was was performed as CT enterography. The fluid noted in the small and large bowel is normal and not indicating enterocolitis. Signed: Kp Stark MDReport Verified Date/Time: 02/13/2020 12:33:09 Reading Location: [address] Body Reading RoomAddendum EndsFINAL REPORT ABDOMINAL AND PELVIS CT DATED 02/13/2020 CLINICAL INFORMATION: Abdominal bloating TECHNIQUE: Axial images of the abdomen and pelvis were obtained from diaphragm to the pubic symphysis with intravenous contrast. This exam was performed according to our departmental dose- optimization program, which includes automated exposure control, adjustment of the mA and/or kV according to patient size and/or use of interactive reconstruction technique. COMMENT: Liver and spleen are normal in size. There is diffusely decreased attenuation in the liversuggestive fatty hepatic infiltrate. 3 cysts as seen in the segment 2 of the liver measuring up to 1.4 x 1.7 cm. Gallbladder is contracted. No gallstone or biliary dilatation is noted. Pancreas and adrenals are unremarkable. Both kidneys are normal in size and functioning. No hydronephrosis, hydroureter, urolithiasis is seen. Fluid-filled small and large bowel loops are seen in the abdomen and pelvissuggestive of enterocolitis. No small or large bowel [...] MDReport Verified Date/Time: 02/13/2020 12:11:20 Reading Location: [facility] C013Y CT Body Reading Room TISSUE EXAM 2019-12-03 11:58:00Surgical Pathology Report Case: [id number] Authorizing Provider: Prosper Adair MD Collected: 11/29/2019 1323 Ordering Location: [facility] ENDOSCOPY Received: 11/29/2019 1557 SERVICES Pathologist: Chika [...] BIOPSY: - COLONIC MUCOSA WITH FOCAL HYPERPLASTIC CHANGESJ/pl Signing Pathologist Direct Phone Line: [phone] signed by Chika Casey MDon 12/03/2019 at 11:58 AMNo features of microscopic colitis noted. Endoscopic report reviewed. 81201 x 4; 20327 h0Efofnchsyhf abdominal pain, constipationA. Duodenal biopsy; B. Gastric antrum body and incisura biopsy rule out H. Pylori; C. Random biopsy of esophagus rule out eosinophilic esophagitis; D.Left/descending colon polyp, rule out hyperplastic polyp The case is received in four parts labeled with the patient's information as [id number] which corresponds to the accompanying requisition slip. [...] x 0.1 cm in aggregate. They are submittedin toto after filtration in cassette D1. SC/plPerformed The interpretation of this case included theuse of immunohistochemistry or special stains.Control Slides Examined: In-house known positive controls were evaluated along with the test tissue. These control slides run alongside of the patients sample show appropriate staining. Internal positive and negative controls when available are evaluated Immunohistochemistry technical testing was performed at [facility], Pathology Laboratory where it was developed [...] complexity clinical laboratory testing.- US HEAD AND [id number] 15:55:00 Patient Name: DEBRA LINTON Unit No: [id number] EXAMS: CPT CODE: [id number] US HEAD AND NECK [id number] ULTRASOUND Exam date: July 25, 2019 CLINICAL HISTORY: Thyroid enlargement COMPARISON: NoneFINDINGS: The right lobe thyroid measures 35 x 17 x 13 mm cm. There is a 3 x 2 x 3 mm colloid cyst in the superior right lobe. The left lobe thyroid measures 35 x 14 x 13 mm cm. There is a 2 x 2 x 2 mmcolloid cyst in the mid pole of the left lobe. The isthmus measures2 mm No dominant nodule is seen. IMPRESSION: Small colloid cysts as described above. Electronically Signed by Yuli Hwang MD on07/25/2019 at 1555 Reported and signed by: Yuli Hwang MD CC: Tmaika Suero MD Technologist: Ginny Cordero RDMS Probe: Trnscrbd D/ (1555) t.SDR.CER Orig Print D/T: S:07/25/2019 (6458) [facility] NAME: DEBRA LINTON Radiology Department PHYS: Tamika Sanders [address] : 1980 AGE: 39 SEX: F [place] [address] ACCT NO: [id number] LOC: Cody.RAD PHONE #: [phone] EXAM DATE: 07/25/2019 STATUS: REG CLI FAX #: [phone] RAD NO: Page 1 Signed Report Patient Name: DEBRA LINTON Unit No: [id number] EXAMS: CPT CODE: [id number] US HEAD AND NECK 62982 (Continued) [facility] NAME: DEBRA LINTON Radiology Department PHYS: Tamika Sanders [address] : 1980 AGE: 39 SEX: F [place] [address] LOC: Cody.RAD PHONE #: [phone] EXAM DATE: 07/25/2019 STATUS: REG CLI FAX #: [phone] RAD NO: Page 2 Signed Report- US PELVIS [id number] 15:43:00 Patient Name: DEBRA LINTON Unit No: [id number] EXAMS: CPT CODE: [id number] US PELVIS COMPLETE 23533 Exam: Pelvic ultrasound. Exam date: July 25, [...] Blood flow is identified within the ovaries.. Theleft ovary measures 19 August 2017 by 17 mm and has a normal sonographic appearance. Blood flow is identified within the ovary.. No significant free fluid or adnexal masses are identified. IMPRESSION:1. Uterine leiomyomas , as detailed above. at 1543 Reported and signed by: Yuli Hwang MD CC: Tamika Suero MD Technologist: Ginny Cordero RDMS Probe: Trnscrbd D/ (1543) t.SDR.CER Orig Print D/T: S: 07/25/2019 (1546) [facility] NAME: DEBRA LINTON Radiology Department PHYS: Tamika Sanders [address] : 1980 AGE: 39 SEX: F [place], [place] [address] LOC: F.RAD PHONE #: [phone] EXAM DATE: 07/25/2019 STATUS: REG CLI FAX #: [phone] RAD NO: Page 1 Signed Report Patient Name: DEBRA LINTON Unit No: [id number] EXAMS: CPT CODE: [id number] US PELVIS COMPLETE 67741 (Continued) [facility] NAME: LINTONDEBRA Radiology Department PHYS: KADSTamika Lake [address] : 1980 AGE: 39 SEX: F [place] [id number] LOC: JewelRAD PHONE #: [phone] EXAM DATE: 07/25/2019 STATUS: REG CLI FAX #: [phone] RAD NO: Page 2 Signed Report- US TRANSVAGINAL W/PELVIS 2019-07-25 15:43:00 Patient Name: DEBRA LINTON Unit No: [id number] EXAMS: CPT CODE: [id number] US TRANSVAGINAL W/PELVIS 36928 Exam: Pelvic ultrasound. Exam date: July 25, 2019 COMPARISON: None. CLINICAL HISTORY: Irregular cycles. Real-time transabdominal and transvaginal imaging with color and Spectral doppler of the pelvis demonstrates a 77 x 41 x 64 mm uterus. The following fibroids are seen: Left intramural 45 x39 x 42 mm Right intramural 12 x 13 x 12 mm. The endometrium measures 3 mm . The right ovary measures 44 x 24 x 21 mm and has a normal sonographic appearance. Blood flow is identified within the ovaries .. The left ovary measures 19 August 2017 by 17 mm and has a normal sonographic appearance. Blood flow is identified within the ovary.. No significant free fluid or adnexal masses are identified. IMPRESSION: 1. Uterine leiomyomas , as detailed above. at 1543 Reported and signed by: Yuli Hwang MD CC: Tamika Suero MD Technologist: Ginny Cordero RDMS Probe: [id number] Trnscrbd D/ (1543) t.KADEEMR.MT Orig Print D/T: S: 07/25/2019 (1546) [facility] NAME: DEBRA LINTON Radiology Department PHYS: Tamika Sanders [address] : 1980 AGE: 39 SEX: F [place], [place] [address] LOC: JewelRAD PHONE #: [phone] EXAM DATE: 07/25/2019 STATUS: REG CLI FAX #: [phone] RAD NO: Page 1 Signed Report Patient Name: DEBRA LINTON Unit No: [id number] EXAMS: CPTCODE: [id number] US TRANSVAGINAL W/PELVIS 77554 (Continued) [facility] NAME: DEBRA LINTON Radiology Department PHYS: Tamika Sanders [address] : 1980 AGE: 39 SEX: F [place], [place] [address] LOC: F.RAD PHONE #: [phone] EXAM DATE: 07/25/2019 STATUS: REG CLI FAX #: [phone] RAD NO: Page 2 Signed ReportNeisseria gonorrhoeae DNA probe 2018-07-06 15:26:00 Test Item Value Reference Range Interpretation Comments Neisseria gonorrhoeae DNA probe Negative Negative (test code = 13383-7) [facility]lamydia DNA [id number] 15:26:00 Test Item Value Reference Range Interpretation Comments chlamydia DNA probe (test code = Negative Negative 33572-0) [facility] Healthurine neggkco0887-33-44 15:27:00 Test Item Value Reference Range Interpretation Comments urine culture (test code = 630-4) [facility]ESS [facility]hthyroxine, serum, [id number] 09:48:00 Test Item Value Reference Range Interpretation Comments thyroxine, serum, free (test code 1.49 ng/dL 0.82-1.77 = 3024-7) [facility]hyroid stimulating hormone, oezpl3518-17-47 09:48:00 Test Item Value Reference Range Interpretation Comments thyroid stimulating hormone, 4.950 u[IU]/mL 0.450-4.500 H serum (test code = 3016-3) [facility]rubella antibody, serum, [id number] 09:48:00 Test Item Value Reference Range Interpretation Comments rubella antibody, 5.04 (unknown See_Comment [Automat ed message] serum, IgG (test unit) The system which code = 5334-8) generated thi s result transmitted ref erence range: Immune > 0.99. The reference r rafael was not used to interpret this result as normal/abnor mal. [facility]hemoglobin A1C, blood, as % of total rsghrndftp2978-47-31 09:48:00 Test Item Value Reference Range Interpretation Comments hemoglobin A1C, blood, as % of total 5.3 % 4.8-5.6 hemoglobin (test code = 4548-4) [facility]LDL cholesterol, eyfpv1852-52-31 09:48:00 Test Item Value Reference Range Interpretation Comments LDL cholesterol, serum (test code = 81 mg/dL 0-99 2088-1) [facility]very low density trwijpmxseeg6175-73-35 09:48:00 Test Item Value Reference Range Interpretation Comments very low density lipoproteins (test 29 mg/dL 5-40 code = 2091-7) [facility]HDL cholesterol, cdjca0744-16-32 09:48:00 Test Item Value Reference Range Interpretation Comments HDL cholesterol, serum (test code = 48 mg/dL >39 5-9) [facility]riglyceride, serum, crymric2878-06-88 09:48:00 Test Item Value Reference Range Interpretation Comments triglyceride, serum, fasting (test 144 mg/dL 0-149 code = 2571-8) [facility]cholesterol, swiet5810-61-37 09:48:00 Test Item Value Reference Range Interpretation Comments cholesterol, serum (test code = 158 mg/dL 628-445 9212-3) [facility]alanine aminotransferase (SGPT), doeau9739-76-91 09:48:00 Test Item Value Reference Range Interpretation Comments alanine aminotransferase (SGPT), serum 13 1/L 0-32 (test code = 1742-6) [facility] Healthaspartate aminotransferase (SGOT), qwkhm7047-72-89 09:48:00 Test Item Value Reference Range Interpretation Comments aspartate aminotransferase (SGOT), 12 1/L 0-40 serum (test code = 1920-8) [facility]alkaline phosphatase, tspzh8948-26-61 09:48:00 Test Item Value Reference Range Interpretation Comments alkaline phosphatase, serum (test code 65 1/L 39-117 = 1783-0) [facility]bilirubin, serum, rdonv9139-95-77 09:48:00 Test Item Value Reference Range Interpretation Comments bilirubin, serum, total (test code 0.3 mg/dL 0.0-1.2 = 1975-2) [facility] Healthalbumin/globulin ratio, rsfmk3739-34-81 09:48:00 Test Item Value Reference Range Interpretation Comments albumin/globulin ratio, 2.2 (unknown unit) 1.2-2.2 serum (test code = 1759-0) [facility] Healthglobulin, ezmhl9840-89-00 09:48:00 Test Item Value Reference Range Interpretation Comments globulin, serum (test code 1.9 (unknown unit) 1.5-4.5 = 2336-6) [facility] Healthalbumin, uiufd0987-71-20 09:48:00 Test Item Value Reference Range Interpretation Comments albumin, serum (test code = 1751-7) 4.1 g/dL 3.5-5.5 [facility]protein, total, luzbh6199-63-01 09:48:00 Test Item Value Reference Range Interpretation Comments protein, total, serum (test code = 6.0 g/dL 6.0-8.5 2885-2) [facility]calcium, emtee3582-78-37 09:48:00 Test Item Value Reference Range Interpretation Comments calcium, serum (test code = 2000-8) 9.1 mg/dL 8.7-10.2 [facility]carbon dioxide, venous ostio9040-44-91 09:48:00 Test Item Value Reference Range Interpretation Comments carbon dioxide, venous blood (test 22 mmol/L code = 7-1) [facility]chloride, sahtu5404-81-44 09:48:00 Test Item Value Reference Range Interpretation Comments chloride, serum (test code = 103 mmol/L 96-106 5-0) [facility]potassium, lplap9463-45-97 09:48:00 Test Item Value Reference Range Interpretation Comments potassium, serum (test code = 3.8 mmol/L 3.5-5.2 2823-3) [facility]sodium, mhgcx4975-52-42 09:48:00 Test Item Value Reference Range Interpretation Comments sodium, serum (test code = 2951-2) 140 mmol/L 134-144 [facility]urea nitrogen/creatinine ratio, zbjbm3052-46-28 09:48:00 Test Item Value Reference Range Interpretation Comments urea nitrogen/creatinine 19 (unknown unit) 9-23 ratio, serum (test code = 3097-3) [facility] HealtheGFR if Zrsvphbn0966-07-32 09:48:00 Test Item Value Reference Range Interpretation Comments eGFR if 111 mL/min/{1.73 m2} >59 (test code = 78302-7) [facility] HealthEstimated Glomerular Filtration Rate (calc)2018-07-05 09:48:00 Test Item Value Reference Range Interpretation Comments Estimated Glomerular 97 mL/min/{1.73 m2} >59 Filtration Rate (calc) (test code = 81420-5) [facility] Healthcreatinine, lyzsi7921-00-30 09:48:00 Test Item Value Reference Range Interpretation Comments creatinine, serum (test code = 0.79 mg/dL 0.57-1.00 2160-0) [facility]urea nitrogen, lutjc4238-14-22 09:48:00 Test Item Value Reference Range Interpretation Comments urea nitrogen, blood (test code = 15 mg/dL 6-20 3094-0) [facility]blood glucose, nomalf1347-11-33 09:48:00 Test Item Value Reference Range Interpretation Comments blood glucose, random (test code = 89 mg/dL 65-99 2339-0) [facility]immature granulocytes, percentage of total cells, blood 2018-07-05 09:48:00 Test Item Value Reference Range Interpretation Comments immature granulocytes, percentage of 0 % total cells, blood (test code = 78158-6) [facility]basophil count, ggwvoury9350-58-97 09:48:00 Test Item Value Reference Range Interpretation Comments basophil count, absolute (test 0.0 x10E3/uL 0.0-0.2 code = 12169-2) [facility]Eosinophil Absolute Gnpnp4539-80-79 09:48:00 Test Item Value Reference Range Interpretation Comments Eosinophil Absolute Count (test 0.1 X10E3/UL 0.0-0.4 code = 64719-1) [facility]monocyte count, blood, avgujuvdu5805-57-14 09:48:00 Test Item Value Reference Range Interpretation Comments monocyte count, blood, automated 0.4 X10E3/UL 0.1-0.9 (test code = 742-7) [facility]lymphocyte count, blood, hulatjmir8278-06-15 09:48:00 Test Item Value Reference Range Interpretation Comments lymphocyte count, blood, 3.0 X10E3/UL 0.7-3.1 automated (test code = 731-0) [facility] HealthAbsolute Atteujyiczc6929-88-58 09:48:00 Test Item Value Reference Range Interpretation Comments Absolute Neutrophils (test code 3.2 X10E3/UL 1.4-7.0 = 86626-1) [facility]basophils as percent of blood vbsleprrgj4083-51-25 09:48:00 Test Item Value Reference Range Interpretation Comments basophils as percent of blood 0 % leukocytes (test code = 707-0) [facility]theosinophils as percent of blood rmjheorozk5959-89-66 09:48:00 Test Item Value Reference Range Interpretation Comments eosinophils as percent of blood 1 % leukocytes (test code = 713-8) [facility]monocytes as percent of blood msssqmeyai0114-42-35 09:48:00 Test Item Value Reference Range Interpretation Comments monocytes as percent of blood 6 % leukocytes (test code = 5905-5) [facility]lymphocytes as percent of blood fsocdpisaj7911-89-07 09:48:00 Test Item Value Reference Range Interpretation Comments lymphocytes as percent of blood 45 % leukocytes (test code = 736-9) [facility] Healthneutrophils as percent of blood mctseusarw0891-52-75 09:48:00 Test Item Value Reference Range Interpretation Comments neutrophils as percent of blood 48 % leukocytes (test code = 770-8) [facility] Healthplatelet fzpip3338-20-18 09:48:00 Test Item Value Reference Range Interpretation Comments platelet count (test code = 207 X10E3/UL 150-379 777-3) [facility]red blood cell distribution dghpw8301-94-66 09:48:00 Test Item Value Reference Range Interpretation Comments red blood cell distribution width 14.0 % 12.3-15.4 (test code = 788-0) [facility]mean corpuscular hemoglobin concentration, DQL2646-12-93 09:48:00 Test Item Value Reference Range Interpretation Comments mean corpuscular hemoglobin 33.0 G/DL 31.5-35.7 concentration, RBC (test code = 786-4) [facility]mean corpuscular hemoglobin, PQO9497-01-72 09:48:00 Test Item Value Reference Range Interpretation Comments mean corpuscular hemoglobin, RBC 30.6 pg 26.6-33.0 (test code = 785-6) [facility]mean corpuscular volume, SQG9626-04-65 09:48:00 Test Item Value Reference Range Interpretation Comments mean corpuscular volume, RBC (test code 93 fL 79-97 = 787-2) [facility]hematocrit, zydsl8078-96-96 09:48:00 Test Item Value Reference Range Interpretation Comments hematocrit, blood (test code = 4544-3) 39.1 % 34.0-46.6 [facility]hemoglobin, zxvwe0289 09:48:00 Test Item Value Reference Range Interpretation Comments hemoglobin, blood (test code = 12.9 g/dL 11.1-15.9 718-7) [facility]altherythrocyte (RBC) tucdp4632-16-09 09:48:00 Test Item Value Reference Range Interpretation Comments erythrocyte (RBC) count (test 4.21 X10E6/UL 3.77-5.28 code = 789-8) [facility]leukocyte count, avrwv1718-83-48 09:48:00 Test Item Value Reference Range Interpretation Comments leukocyte count, blood (test 6.7 X10E3/UL 3.4-10.8 code = 6690-2) [facility]pH, urine, swuigtjauckabljm0703-58-73 08:38:29 Test Item Value Reference Range Interpretation Comments pH, urine, semiquantitative 5.0 (unknown (test code = 5803-2) unit) [facility] Healthspecific gravity, hpgxi0240-30-05 08:38:29 Test Item Value Reference Range Interpretation Comments specific gravity, urine 1.010 (unknown unit) (test code = 5811-5) [facility]glucose, urine, rbzpnwptonipvymd8170-99-31 08:38:29 Test Item Value Reference Range Interpretation Comments glucose, urine, semiquantitative negative (test code = 5792-7) [facility]bilirubin, rsrzg0350-58-44 08:38:29 Test Item Value Reference Range Interpretation Comments bilirubin, urine (test code = negative 5770-3) [facility]ketones, urine, by test gevhs7542-99-98 08:38:29 Test Item Value Reference Range Interpretation Comments ketones, urine, by test strip (test negative code = 5797-6) [facility]protein, urine, semiquantitative (dipstick)2018-07-05 08:38:29 Test Item Value Reference Range Interpretation Comments protein, urine, semiquantitative negative (dipstick) (test code = 1753-3) [facility] Healthurobilinogen, urine, semiquantitative (dipstick) 2018-07-05 08:38:29 Test Item Value Reference Range Interpretation Comments urobilinogen, urine, negative semiquantitative (dipstick) (test code = 5818-0) [facility]nitrite, urine, oogilpdjuxvdjazp7823-19-57 08:38:29 Test Item Value Reference Range Interpretation Comments nitrite, urine, semiquantitative negative (test code = 5802-4) [facility]leukocyte esterase, urine, by sbiwuzch5090-30-56 08:38:29 Test Item Value Reference Range Interpretation Comments leukocyte esterase, urine, by negative dipstick (test code = 5799-2) [facility] Healthappearance, harvn4206-02-64 08:38:29 Test Item Value Reference Range Interpretation Comments appearance, urine (test code = 5767-9) clear [facility]urine nvolm0047-71-46 08:38:29 Test Item Value Reference Range Interpretation Comments urine color (test code = 5778-6) yellow [facility] Healthblood in urine (hemoglobin) by xoqzsmyb0582-68-89 08:38:29 Test Item Value Reference Range Interpretation Comments blood in urine (hemoglobin) by dipstick 1+ (test code = 4998) [facility] HealthNeisseria gonorrhoeae DNA mppnz8819-17-21 14:37:00 Test Item Value Reference Range Interpretation Comments Neisseria gonorrhoeae DNA probe Negative Negative (test code = 82395-6) [facility]chlamydia DNA hitty5627-83-88 14:37:00 Test Item Value Reference Range Interpretation Comments chlamydia DNA probe (test code = Negative Negative 72879-1) [facility]; XXX; QL; )2017-04-22 14:37:00 Test Item Value Reference Range Interpretation Comments HERPES SIMPLEX VIRUS IDENTIFIED (PT; HSVN XXX; QL; ) (test code = 3557) [facility] Healthhepatitis C antibody, sfkfi0740-60-07 15:30:00 Test Item Value Reference Range Interpretation Comments hepatitis C antibody, 0.1 (unknown unit) 0.0-0.9 serum (test code = 5199-5) [facility]rapid plasma reagin antibody, vsyll4195-95-67 15:30:00 Test Item Value Reference Range Interpretation Comments rapid plasma reagin antibody, Non Reactive Non Reactive serum (test code = 5291-0) [facility]patitis B surface ffikoun7552-77-06 15:30:00 Test Item Value Reference Range Interpretation Comments hepatitis B surface antigen (test Negative Negative code = 79) [facility] HealthHIV-CMIA (Chemiluminescent Microparticle Immuno Assay) 2017-04-20 15:30:00 Test Item Value Reference Range Interpretation Comments HIV-CMIA (Chemiluminescent Non Reactive Non Reactive Microparticle Immuno Assay) (test code = 734635) [facility] HealthHERPES SIMPLEX VIRUS TYPE 2 AB.IGG (PT; SER; QN; ) 2017-04-20 15:30:00 Test Item Value Reference Range Interpretation Comments HERPES SIMPLEX VIRUS TYPE 2 AB.IGG 1.29 index 0.00-0.90 H (PT; SER; QN; ) (test code = 2434) [facility]HERPES SIMPLEX VIRUS TYPE 1 AB.IGG (PT; SER; QN; ) 2017-04-20 15:30:00 Test Item Value Reference Range Interpretation Comments HERPES SIMPLEX VIRUS TYPE 1 <0.91 index 0.00-0.90 AB.IGG (PT; SER; QN; ) (test code = 2432) [facility]prolactin, nixsr5966-68-43 14:54:00 Test Item Value Reference Range Interpretation Comments prolactin, serum (test code = 10.9 ng/mL 4.8-23.3 2842-3) [facility]follicle stimulating hormone, xylzo1852-93-03 14:54:00 Test Item Value Reference Range Interpretation Comments follicle stimulating hormone, 6.8 m[IU]/mL serum (test code = 2286-3) [facility]luteinizing hormone, apogi2773-30-23 14:54:00 Test Item Value Reference Range Interpretation Comments luteinizing hormone, serum 16.9 m[IU]/mL (test code = 61503-0) [facility] Healthtestosterone, gbovg0149-68-21 14:54:00 Test Item Value Reference Range Interpretation Comments testosterone, total (test code = 19 ng/dL 8-48 2986-8) [facility]immature granulocytes, percentage of total cells, blood 2016-11-15 14:54:00 Test Item Value Reference Range Interpretation Comments immature granulocytes, percentage of 0 % total cells, blood (test code = 97813-4) [facility]basophil count, oxcpvnya8918-89-37 14:54:00 Test Item Value Reference Range Interpretation Comments basophil count, absolute (test 0.0 x10E3/uL 0.0-0.2 code = 93397-2) [facility] HealthEosinophil Absolute Tlicx7104-30-14 14:54:00 Test Item Value Reference Range Interpretation Comments Eosinophil Absolute Count (test 0.1 X10E3/UL 0.0-0.4 code = 95931-1) [facility]monocyte count, blood, xbywjwiyn5033-37-16 14:54:00 Test Item Value Reference Range Interpretation Comments monocyte count, blood, automated 0.6 X10E3/UL 0.1-0.9 (test code = 742-7) [facility]lymphocyte count, blood, tdxgonnup1987-93-14 14:54:00 Test Item Value Reference Range Interpretation Comments lymphocyte count, blood, 3.2 X10E3/UL 0.7-3.1 H automated (test code = 731-0) [facility]Absolute Xohlwygtxpu9802-95-41 14:54:00 Test Item Value Reference Range Interpretation Comments Absolute Neutrophils (test code 3.8 X10E3/UL 1.4-7.0 = 19214-3) [facility]basophils as percent of blood dbosconsqy5901-62-09 14:54:00 Test Item Value Reference Range Interpretation Comments basophils as percent of blood 0 % leukocytes (test code = 707-0) [facility] Healtheosinophils as percent of blood thteyfczfn8563-77-98 14:54:00 Test Item Value Reference Range Interpretation Comments eosinophils as percent of blood 1 % leukocytes (test code = 713-8) [facility] Healthmonocytes as percent of blood vtgmqytfxn2964-91-85 14:54:00 Test Item Value Reference Range Interpretation Comments monocytes as percent of blood 8 % leukocytes (test code = 5905-5) [facility]lymphocytes as percent of blood pmtvrkzoft4156-69-39 14:54:00 Test Item Value Reference Range Interpretation Comments lymphocytes as percent of blood 42 % leukocytes (test code = 736-9) [facility] Healthneutrophils as percent of blood ugvguijune0077-39-05 14:54:00 Test Item Value Reference Range Interpretation Comments neutrophils as percent of blood 49 % leukocytes (test code = 770-8) [facility]platelet nmudr2140-11-92 14:54:00 Test Item Value Reference Range Interpretation Comments platelet count (test code = 236 X10E3/UL 150-379 777-3) [facility]red blood cell distribution vjocb0704-51-16 14:54:00 Test Item Value Reference Range Interpretation Comments red blood cell distribution width 13.5 % 12.3-15.4 (test code = 788-0) [facility] corpuscular hemoglobin concentration, FPW8523-63-25 14:54:00 Test Item Value Reference Range Interpretation Comments mean corpuscular hemoglobin 34.3 G/DL 31.5-35.7 concentration, RBC (test code = 786-4) [facility] corpuscular hemoglobin, XVA3758-07-86 14:54:00 Test Item Value Reference Range Interpretation Comments mean corpuscular hemoglobin, RBC 30.6 pg 26.6-33.0 (test code = 785-6) [facility] corpuscular volume, XJC5500-56-08 14:54:00 Test Item Value Reference Range Interpretation Comments mean corpuscular volume, RBC (test code 89 fL 79-97 = 787-2) [facility]hematocrit, ptzeq5789-91-49 14:54:00 Test Item Value Reference Range Interpretation Comments hematocrit, blood (test code = 4544-3) 39.1 % 34.0-46.6 [facility]hemoglobin, xmwsg8935-96-42 14:54:00 Test Item Value Reference Range Interpretation Comments hemoglobin, blood (test code = 13.4 g/dL 11.1-15.9 718-7) [facility]altherythrocyte (RBC) oheup6120-39-81 14:54:00 Test Item Value Reference Range Interpretation Comments erythrocyte (RBC) count (test 4.38 X10E6/UL 3.77-5.28 code = 789-8) [facility]leukocyte count, wamqy5307-19-72 14:54:00 Test Item Value Reference Range Interpretation Comments leukocyte count, blood (test 7.7 X10E3/UL 3.4-10.8 code = 6690-2) [facility] HealthAztfwu62-ifniweltmdhogipwlug, serum or ocmvqi0447-39-04 14:54:00 Test Item Value Reference Range Interpretation Comments 17-hydroxyprogesterone, serum or 71 ng/dL plasma (test code = 3232) [facility] Healthdehydroepiandrosterone sulfate, xcizw1803-86-40 14:54:00 Test Item Value Reference Range Interpretation Comments dehydroepiandrosterone sulfate, 123.1 ug/dL 84.8-378.0 serum (test code = 2724) [facility] Healthantinuclear vlepzcut7955-97-67 14:30:00 Test Item Value Reference Range Interpretation Comments antinuclear antibody (test code = Negative Negative 5047-6) [facility] Healthhepatitis C antibody, eseyb4233-57-80 14:30:00 Test Item Value Reference Range Interpretation Comments hepatitis C antibody, serum (test code <0.1 0.0-0.9 = 5199-5) [facility]rapid plasma reagin antibody, ateke3625-15-50 14:30:00 Test Item Value Reference Range Interpretation Comments rapid plasma reagin antibody, Non Reactive Non Reactive serum (test code = 5291-0) [facility] Healthrheumatoid emhpqm8697-68-65 14:30:00 Test Item Value Reference Range Interpretation Comments rheumatoid factor (test code = 9.8 [iU]/mL 0.0-13.9 04370-6) [facility] Healthpatitis B surface eatqtha3566-33-53 14:30:00 Test Item Value Reference Range Interpretation Comments hepatitis B surface antigen (test Negative Negative code = 79) [facility]HIV-CMIA (Chemiluminescent Microparticle Immuno Assay) 2016-11-10 14:30:00 Test Item Value Reference Range Interpretation Comments HIV-CMIA (Chemiluminescent Non Reactive Non Reactive Microparticle Immuno Assay) (test code = 146951) [facility]
--- NOTE | 2022-07-21 16:17 | ER ---
Nurse's Notes [facility] Name: Debra Weber Age: 42 yrs Sex: Female : 1980 Arrival Date: 07/21/2022 Time: 15:16 Bed 4 Private MD: Diagnosis: Cellulitis of the Right Hand - Cat Bite, initial visit Presentation: 07/21 15:57 Chief complaint: Patient states: I got bit by my cat last night and now my hand is bm7 hurting so bad and its moving up my arm. I went to urgent care and they told me I needed to come here. Coronavirus screen: At this time, the client does not indicate any symptoms associated with coronavirus-19. Ebola Screen: No symptoms or risks identified at this time. Initial Sepsis Screen: Does the patient meet any 2 criteria? No. Patient's initial sepsis screen is negative. Does the patient have a suspected source of infection? No. Patient's initial sepsis screen is negative. Risk Assessment: Do you want to hurt yourself or someone else? Patient reports no desire to harm self or others. Onset of symptoms was July 20, 2022. 15:57 Method Of Arrival: Ambulatory [facility] 15:57 Acuity: ROS [address] [facility] Triage Assessment: 15:59 Bite description: bite sustained to right hand by a cat, animal information: bm7 vaccination(s) is unknown. General: Appears in no apparent distress. uncomfortable, Behavior is calm, cooperative. Pain: Complains of pain in right hand. EENT: No deficits noted. No signs and/or symptoms were reported regarding the EENT system. Neuro: No deficits noted. Cardiovascular: No deficits noted. Respiratory: No deficits noted. GI: No deficits noted. No signs and/or symptoms were reported involving the gastrointestinal system. : No deficits noted. No signs and/or symptoms were reported regarding the genitourinary system. Derm: Skin is intact, Skin is dry, Skin is red, Skin temperature is warm. 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 Historical: - Allergies: 15:59 Rocephin; bm7 - Home Meds: 15:59 Celexa 10 mg Oral tab 1 tab once daily [Active]; bm7 - PMHx: 15:59 Depressive disorder; bm7 - PSHx: 15:59 Myomectomy; bm7 - Immunization history:: Adult Immunizations up to date. - Social history:: Smoking status: Patient denies any tobacco usage or history of. Screenin:30 Abuse screen: Denies threats or abuse. Nutritional screening: No deficits noted. aa5 Tuberculosis screening: No symptoms or risk factors identified. Fall Risk None identified. Assessment: 16:30 General: Appears comfortable, Behavior is calm, cooperative. Pain: Complains of pain in aa5 right hand Pain currently is 3 out of 10 on a pain scale. Quality of pain is described as throbbing, Pain began 1 day ago. Is continuous. Neuro: Level of Consciousness is awake, alert, obeys commands, Oriented to person, place, time, situation. Cardiovascular: Heart tones S1 S2 present Rhythm is regular. Respiratory: Airway is patent Respiratory effort is even, unlabored, Respiratory pattern is regular, symmetrical. GI: No signs and/or symptoms were reported involving the gastrointestinal system. : No signs and/or symptoms were reported regarding the genitourinary system. EENT: No signs and/or symptoms were reported regarding the EENT system. Derm: Skin is pink, warm \T\ dry. Swelling and redness noted to top of right hand, pt reports her cat got upset and scratched her. Musculoskeletal: Range of motion: intact in all extremities. 18:00 Reassessment: Patient is alert, oriented x 3, equal unlabored respirations, skin aa5 warm/dry/pink. Pt sitting up in bed, pt given dinner tray. States pain has decreased after Toradol administration. . 19:28 Reassessment: Patient and/or family updated on plan of care and expected duration. Pain vc1 level reassessed. Patient is alert, oriented x 3, equal unlabored respirations, skin warm/dry/pink. Patient states feeling better. Vital Signs: 15:57 BP 119 / 52; Pulse 78; Resp 16; Temp 97.0(TE); Pulse Ox 100% on R/A; Weight 95.25 kg bm7 (R); Height 5 ft. 3 in. (160.02 cm); Pain 10/10; 17:05 BP 137 / 74; Pulse 61; Resp 18 S; Pulse Ox 100% on R/A; aa5 18:15 BP 110 / 59; Pulse 63; Resp 16 S; Pulse Ox 100% on R/A; aa5 19:28 BP 123 / 60; Pulse 67; Resp 15; Pulse Ox 100% on R/A; vc1 20:14 BP 113 / 59; Pulse 78; Resp 18; Temp 97.1; Pulse Ox 98% ; jj7 15:57 Body Mass Index 37.20 (95.25 kg, 160.02 cm) 7 ED Course: 15:16 Patient arrived in ED. mr 15:59 Triage completed. bm7 15:59 Arm band placed on left wrist. [facility] 16:03 Henry Leon PA is PHCP. [facility] 16:03 Mona Booth MD is Attending Physician. [facility] 16:16 Anton Meade MD is Hospitalizing Provider. [facility] 16:18 Abbey Lutz RN is Primary Nurse. aa5 16:30 Patient has correct armband on for positive identification. Bed in low position. Call aa5 light in reach. Side rails up X 1. Adult w/ patient. 16:44 Inserted saline lock: 20 gauge in left antecubital area, using aseptic technique. Blood aa5 collected. 16:44 Initial lab(s) drawn, by id, sent to lab. First set of blood cultures drawn by id. aa5 17:01 Second set of blood cultures drawn by id. COVID swab sent to lab. aa5 19:05 Report given to FABIAN Dixon. aa5 20:15 No provider procedures requiring assistance completed. Patient admitted, IV remains in [facility] place. Administered Medications: 16:58 Drug: Pepcid (famotidine) 20 mg Route: IVP; Site: left antecubital; aa5 17:05 Follow up: Response: No adverse reaction aa5 16:58 Drug: diphenhydrAMINE 12.5 mg Route: IVP; Site: left antecubital; aa5 17:05 Follow up: Response: No adverse reaction aa5 17:15 Drug: Unasyn (ampicillin-sulbactam) 3 grams Route: IVPB; Infused Over: 30 mins; Site: aa5 left antecubital; 17:45 Follow up: Response: No adverse reaction; IV Status: Completed infusion aa5 17:47 Drug: Ketorolac 30 mg Route: IVP; Site: left antecubital; aa5 18:00 Follow up: Response: No adverse reaction; Pain is decreased aa5 Medication: 20:19 VIS not applicable for this client. jj7 Outcome: 16:16 Decision to Hospitalize by Provider. charlotte 20:15 Admitted to Med/surg accompanied by tech, via wheelchair, Report called to BETITO PERALTA jj7 20:19 Condition: good jj7 20:42 Patient left the ED. jj7 Signatures: Henry Leon PA PA jmm Vora, Delia mr Lutz, Abbey, RN RN aa5 Anjali Haas, RN RN bm7 Destiny Wilson RN RN vc1 Ines Schmitt RN RN jj7 Corrections: (The following items were deleted from the chart) 18:49 18:00 Reassessment: Patient is alert, oriented x 3, equal unlabored respirations, skin aa5 warm/dry/pink. Pt sitting up in bed, pt given dinner tray. . aa5
--- NOTE | 2022-07-21 16:17 | EDPHYS ---
Physician Documentation [facility] Name: Debra Weber Age: 42 yrs Sex: Female : 1980 Arrival Date: 07/21/2022 Time: 15:16 Bed 4 Private MD: ED Physician Mona Booth HPI: 07/21 16:04 This 42 yrs old Female presents to ER via Ambulatory with complaints of Cat Bite. jmm 16:04 The patient was bitten on the right hand. Onset: The symptoms/episode began/occurred jmm acutely, last night. Secondary to the bite the patient reports pain, swelling, warmth. Associated signs and symptoms: Pertinent positives: swelling at site. This is a 42 year old female with a history of depression that presents to the ED with complaints of right hand swelling. This occurred after being bitten by her cat. Patient awoke to increased swelling. Advised by urgent care to go to ER for further evaluation. . 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 - Social history:: Smoking status: Patient denies any tobacco usage or history of. ROS: 16:04 Constitutional: Negative for fever, chills, and weight loss, Cardiovascular: Negative jmm for chest pain, palpitations, and edema, Respiratory: Negative for shortness of breath, cough, wheezing, and pleuritic chest pain. 16:04 MS/extremity: Positive for pain, swelling. 16:04 All other systems are negative. Exam: 16:04 Constitutional: This is a well developed, well nourished patient who is awake, alert, jmm and in no acute distress. Head/Face: atraumatic. Eyes: EOMI, no conjunctival erythema appreciated ENT: Moist Mucus Membranes Neck: Trachea midline, Supple Chest/axilla: Normal chest wall appearance and motion. Cardiovascular: Regular rate and rhythm. No edema appreciated Respiratory: Normal respirations, no respiratory distress appreciated Abdomen/GI: Non distended Back: Normal ROM 16:04 Neuro: Awake and alert Psych: Behavior is normal, Mood is normal, Patient is cooperative and pleasant 16:04 Skin: mild erythema noted to the dorsum of the right hand. Vital Signs: 15:57 BP 119 / 52; Pulse 78; Resp 16; Temp 97.0(TE); Pulse Ox 100% on R/A; Weight 95.25 kg bm7 (R); Height 5 ft. 3 in. (160.02 cm); Pain 10/10; 17:05 BP 137 / 74; Pulse 61; Resp 18 S; Pulse Ox 100% on R/A; aa5 18:15 BP 110 / 59; Pulse 63; Resp 16 S; Pulse Ox 100% on R/A; aa5 19:28 BP 123 / 60; Pulse 67; Resp 15; Pulse Ox 100% on R/A; vc1 20:14 BP 113 / 59; Pulse 78; Resp 18; Temp 97.1; Pulse Ox 98% ; jj7 15:57 Body Mass Index 37.20 (95.25 kg, 160.02 cm) bm7 MDM: 16:15 Data reviewed: vital signs, nurses notes. Counseling: I had a detailed discussion with charlotte the patient and/or guardian regarding: the historical points, exam findings, and any diagnostic results supporting the discharge/admit diagnosis, lab results, the need for further work-up and treatment in the hospital. ED course: I discussed the patient with Dr. Vasquez whom will consult on admission. I discussed the patient with DAVID Lipscomb whom accepted the patient to Dr. Snider service. . 16:16 Patient medically screened. [facility] 07/21 16:04 Order name: CBC with Diff [facility] 07/21 16:04 Order name: CMP [facility] 07/21 16:04 Order name: Lactate [facility] 07/21 16:04 Order name: SARS RAPID [facility] 07/21 16:05 Order name: Blood Culture Adult (2) [facility] 07/21 16:56 Order name: CBC with Automated Diff; Complete Time: 16:58 [facility] 07/21 17:10 Order name: Comprehensive Metabolic Panel; Complete Time: 17:17 [facility] 07/21 17:10 Order name: Lactate; Complete Time: 17:17 [facility] 07/21 17:24 Order name: SARS-COV-2 Antigen Rapid; Complete Time: 17:26 [facility] 07/21 17:32 Order name: Phosphorus; Complete Time: 17:45 [facility] 07/21 17:32 Order name: Creatine Phosphokinase; Complete Time: 17:45 [facility] 07/21 17:32 Order name: Magnesium; Complete Time: 17:45 [facility] 07/21 18:54 Order name: Lipid Profile; Complete Time: 19:49 [facility] 07/21 19:12 Order name: Protime (+INR); Complete Time: 19:49 [facility] 07/21 16:04 Order name: Saline Lock; Complete Time: 16:48 [facility] 07/21 16:04 Order name: Hand Right 3 View XRAY [facility] 07/21 16:49 Order name: Diet Regular; Complete Time: 16:50 bd 07/21 17:09 Order name: RAD; Complete Time: 17:10 EDMS Administered Medications: 16:58 Drug: Pepcid (famotidine) 20 mg Route: IVP; Site: left antecubital; aa5 17:05 Follow up: Response: No adverse reaction aa5 16:58 Drug: diphenhydrAMINE 12.5 mg Route: IVP; Site: left antecubital; aa5 17:05 Follow up: Response: No adverse reaction aa5 17:15 Drug: Unasyn (ampicillin-sulbactam) 3 grams Route: IVPB; Infused Over: 30 mins; Site: aa5 left antecubital; 17:45 Follow up: Response: No adverse reaction; IV Status: Completed infusion aa5 17:47 Drug: Ketorolac 30 mg Route: IVP; Site: left antecubital; aa5 18:00 Follow up: Response: No adverse reaction; Pain is decreased aa5 Disposition Summary: 07/21/22 16:16 Hospitalization Ordered Hospitalization Status: Observation [facility] Provider: Anton Meade Location: Telemetry/MedSurg (observation) [facility] Condition: Stable [facility] Problem: new [facility] Symptoms: are unchanged [facility] Bed/Room Type: Standard [facility] Room Assignment: 419(07/21/22 17:55) dw Diagnosis - Cellulitis of the Right Hand - Cat Bite, initial visit [facility] Forms: - Medication Reconciliation Form [facility] - SBAR form [facility] Signatures: Dispatcher [employer] Constanza Leyva RN RN dw Henry Leon PA PA jmm Calderon, Audri, RN RN aa5 Anjali Haas RN RN bm7 Corrections: (The following items were deleted from the chart) 17:55 16:16 charlotte balderas
[2022-07-21] MEDS ORDERED: FAMOTIDINE 20 MG/2 ML VIAL IV ONE (16:49)
[2022-07-21] MEDS ORDERED: DIPHENHYDRAMINE 50 MG/ML VIAL ONE (16:49)
[2022-07-21 16:56] LABS: Absolute Lymphocytes (CBC) 2.8 K/uL (0.7-4.9); Hematocrit 41.7 % (36.0-45.0); Lymphocytes % 32.4 % (15.3-44.8); MCV 90.7 fL (80-100); MPV 8.5 fL (7.6-11.3)
[2022-07-21] MEDS ORDERED: AMPICILLIN/SULBACT 3 GM in NA CHLORIDE 0.9% 100 ML IVPB ONE (17:00)
[2022-07-21] MEDS ORDERED: ACETAMINOPHEN 500 MG TAB PO PRN (17:00)
[2022-07-21] MEDS ORDERED: ONDANSETRON 4 MG/2 ML VIAL IV PRN (17:00)
[2022-07-21] MEDS ORDERED: HYDROCODONE/APAP 10/325 TAB PO PRN (17:00)
--- NOTE | 2022-07-21 17:05 | P.HP ---
Certification for Inpatient Patient admitted to: Observation With expected LOS: <2 Midnights Patient will require the following post-hospital care: None Practitioner: I am a practitioner with admitting privileges, knowledge of patient current condition, hospital course, and medical plan of care. Services: Services provided to patient in accordance with Admission requirements found in Title 42 Section 412.3 of the Code of Federal Regulations Patient History Date of Service: 07/21/22 Reason for admission: Cat bite History of Present Illness: Patient is a 42-year-old female patient with a past medical history significant for anxiety disorder, depression, obesity, nicotine dependence who presents with complaint of cat bite to the right hand. Patient reported that she was playing with her cat yesterday when she suffered a bite on the right hand. Patient started having redness\swelling and pain when she woke up this morning. Patient rated pain as 3/10 in severity and described pain as sharp in quality. Patient denies any other signs and symptoms. Symptoms are aggravated or relieved by nothing. Patient reported that she is having difficulty flexing her fingers due to swelling. Patient decided to present to the hospital due to worsening symptoms. Of note, patient reported that her cat has received all of its vaccinations Allergies ceftriaxone [From Rocephin] Allergy (Verified 04/11/20 14:24) Anaphylaxis hydrocet Allergy (Uncoded 04/11/20 14:24) Anaphylaxis Home medications list reviewed: Yes Home Medications: Citalopram Hydrobromide [Celexa] 1 tab PO DAILY 04/15/20 - Past Medical/Surgical History -: Anxiety disorder -: Depression -: Nicotine dependence -: Obesity Past Surgical History: Reviewed- Non-Contributory - Family History Family History: Reviewed- Non-Contributory - Social History Smoking Status: Current every day smoker Counseled patient to stop smoking for: less than 10 minutes Smoking therapy provided: Yes Patient receptive to therapy: Yes Alcohol use: No CD- Drugs: No Caffeine use: Yes Place of Residence: Home Review of Systems Eyes: Unremarkable ENT: Unremarkable Respiratory: Unremarkable Cardiovascular: Unremarkable Gastrointestinal: Unremarkable Genitourinary: Unremarkable Musculoskeletal: Other (Right arm swelling\pain) Integumentary: Other (Right hand redness) Lymphatics: Unremarkable Physical Examination - Physical Exam General: Alert, Oriented x3, Cooperative HEENT: Atraumatic, Normocephalic, PERRLA Neck: Supple, 2+ carotid pulse no bruit, JVD not distended Respiratory: Clear to auscultation bilaterally, Normal air movement Cardiovascular: Normal pulses, Regular rate/rhythm, Normal S1 S2 Capillary refill: <2 Seconds Gastrointestinal: Normal bowel sounds, Soft and benign, Non-distended Musculoskeletal: Swelling Integumentary: No warmth, Tenderness/swelling, Erythema, Warmth Neurological: Normal gait, Normal speech, Normal tone, Normal affect Lymphatics: No axilla or inguinal lymphadenopathy - Studies Laboratory Data (last 24 hrs) 07/21/22 16:44: WBC 8.60, Hgb 14.1, Hct 41.7, Plt Count 277 Assessment and Plan - Plan --Cat bite. Blood cultures pending. Continue antibiotics. Plastic surgeon consulted. Plans possible I&D in a.m. Patient made n.p.o. after midnight. Will await further recommendation from surgeon. --Right hand cellulitis. Blood cultures pending. Continue antibiotics. --Acute pain. We will manage pain with current pain medication regimen. --Anxiety disorder\depression. Continue home medication. --Class II obesity. Likely secondary to excess calories intake. Patient counseled on weight reduction, diet and excise therapy. --Nicotine dependence. Patient counseled on tobacco cessation. Refuses nicotine patch. --Hypokalemia. Replete as needed. --DVT prophylaxis with SCDs. Discharge Plan: Home Plan to discharge in: 48 Hours - Advance Directives Does patient have a Living Will: No Does patient have a Durable POA for Healthcare: No - Code Status/Comfort Care Code Status Assessed: Yes Code Status: Full Code Physician Review: Patient Assessed, Agree with Above Assessment and Plan Critical Care: No
--- NOTE | 2022-07-21 17:08 | RAD REPORT ---
EXAM DESCRIPTION: RAD - Hand Right 3 View - 07/21/2022 4:33 pm CLINICAL HISTORY: right hand pain, cat bite, specific site not delineated COMPARISON: No comparisonsNone. FINDINGS: No fracture is identified. There is no dislocation or periosteal reaction noted. No acute bone or joint finding identifiable. Soft tissue edema is present primarily over the dorsum of the wick nd and wrist. No air or foreign body seen in the soft tissues. IMPRESSION: Prominent soft tissue thickening and edema without air or foreign body seen. No acute bone or joint finding.
[2022-07-21 17:09] LABS: Potassium 3.4 mmol/L (3.5-5.1)
[2022-07-21 17:10] LABS: Albumin 3.6 g/dL (3.4-5.0); Bilirubin Total 0.2 mg/dL (0.2-1.0); Protein, Total 6.8 g/dL (6.4-8.2)
[2022-07-21 17:24] LABS: SARS-CoV-2 Antigen Rapid Res Negative (Negative)
[2022-07-21 17:31] LABS: Phosphorus 3.3 mg/dL (2.5-4.9)
[2022-07-21] MEDS ORDERED: KETOROLAC 30 MG/ML INJ ONE (17:42)
[2022-07-21] MEDS ORDERED: POTASSIUM CL SA 10 MEQ TAB PO ONE (18:45)
[2022-07-21 19:12] LABS: Protime INR 1.08
[2022-07-21] MEDS: NA CHLORIDE 0.9% 1,000 ML IV SCH (21:02)
[2022-07-22] MEDS: AMPICILLIN/SULBACT 3 GM in NA CHLORIDE 0.9% 100 ML IV SCH ×3 (00:05→16:41)
[2022-07-22 06:28] LABS: Potassium 4.1 mmol/L (3.5-5.1)
[2022-07-22] MEDS: NA CHLORIDE 0.9% 1,000 ML IV SCH ×3 (08:20→23:04)
[2022-07-22 08:21] LABS: Absolute Lymphocytes (CBC) 2.5 K/uL (0.7-4.9); Hematocrit 39.9 % (36.0-45.0); Lymphocytes % 38.9 % (15.3-44.8); MCV 91.4 fL (80-100); MPV 8.6 fL (7.6-11.3); RBC Red Blood Cell Count 4.36 M/uL (3.86-4.86)
[2022-07-22] MEDS: CITALOPRAM 10 MG TABLET PO SCH (08:21)
[2022-07-22 11:52] LABS: Specific Gravity 1.014 (1.005-1.030); Urine Bilirubin NEGATIVE (Negative); Urine Blood 1+ (Negative); Urine Clarity Clear (Clear); Urine Color Light-Yellow (Yellow); Urine Glucose NEGATIVE (Negative); Urine Mucus Slight /HPF (None Seen); Urine Protein NEGATIVE (Negative); Urine Urobilinogen Normal (Normal); Urine pH 7.5 (5.0-7.0)
[2022-07-22 11:53] LABS: Specific Gravity 1.014 (1.005-1.030)
[2022-07-22] MEDS ORDERED: propofoL 200 MG/20 ML VIAL IV ONE (14:39)
[2022-07-22] MEDS ORDERED: LIDOCAINE 2% MPF 5 ML VIAL ONE (14:40)
[2022-07-22] MEDS ORDERED: FENTANYL CITR 100 MCG/2 ML ONE (14:40)
[2022-07-22] MEDS ORDERED: MIDAZOLAM HCL 2 MG/2 ML INJ ONE (14:40)
[2022-07-22] MEDS ORDERED: ONDANSETRON 4 MG/2 ML VIAL ONE (14:44)
[2022-07-22] MEDS ORDERED: dexAMETHasone 4 MG/ML VIAL ONE (15:11)
[2022-07-22] MEDS ORDERED: SILVER SULFADIAZINE 1% 25 GM TOP ONE (15:18)
[2022-07-22] MEDS ORDERED: KETOROLAC 30 MG/ML INJ ONE (15:24)
[2022-07-22] MEDS: HYDROMORPHONE HCL 1 MG/ML INJ ONE ×2 (15:58→16:13)
--- NOTE | 2022-07-22 21:10 | OP ---
Surgeon: Tate Vasquez MD Preoperative Diagnosis: Cat bite to the right hand. Postoperative Diagnosis: Cat bite to the right hand. Procedures Performed: Debridement of skin, subcu tissue; release of the extensor tendon sheath. Anesthesia: General. Procedure In Detail: After satisfactory induction of general anesthesia, right hand was prepped with Betadine scrub, Betadine paint, dry sterile drapes applied in usual manner. Arm was elevated. Tourniquet was inflated to 250 mmHg. then an incision was made around the 2 cat bites. One on the second metacarpal, other one had pus draining from. Cultures were taken. Then, approximately 6 cm laceration into the extensor tendons of the ring finger. After jet lavage, tourniquet was released. Electrocautery was used for hemostasis. Wound was packed with Silvadene cream and 0.5 inch Nu Gauze, Kerlix. The patient tolerated the procedure well, returned to recovery. AGATHA/NATASHA Voice ID: [id number] Report ID: [id number]
--- NOTE | 2022-07-22 21:25 | HP ---
Date of Admission: 07/22/2022 History Of Present Illness: A 42-year-old white female right-hand dominant, bitten by her cat at 7:00 p.m. yesterday. Vaccine is up to date. Past Medical History: No medical problems. Previous Surgeries: Tonsillectomy Medications: See list Physical Examination: Vital Signs: 5 feet 3 inches. 210 pounds. Skin: Cat bite to dorsal surface of right hand over the fourth metacarpal. Pain on motion and palpation. Assessment: Cat bite. Plan: Incision and drainage. AGATHA/NATASHA Voice ID: [id number] MTDD
[2022-07-22] MEDS: KETOROLAC 30 MG/ML INJ IV PRN (22:59)
[2022-07-23] MEDS: AMPICILLIN/SULBACT 3 GM in NA CHLORIDE 0.9% 100 ML IV SCH ×3 (01:11→16:46)
[2022-07-23] MEDS: CITALOPRAM 10 MG TABLET PO SCH (08:11)
[2022-07-23] MEDS: KETOROLAC 30 MG/ML INJ IV PRN ×2 (08:11→15:51)
[2022-07-23] MEDS: NA CHLORIDE 0.9% 1,000 ML IV SCH (12:54)
[2022-07-23] MEDS: CODEINE 30MG/APAP 300MG TAB PO PRN (13:58)
[2022-07-24] MEDS: AMPICILLIN/SULBACT 3 GM in NA CHLORIDE 0.9% 100 ML IV SCH ×3 (01:48→16:23)
[2022-07-24] MEDS: NA CHLORIDE 0.9% 1,000 ML IV SCH ×2 (01:51→12:40)
--- NOTE | 2022-07-24 04:15 | P.PN ---
Date of Service: 07/23/22 Subjective: Patient is POD #1; no complaints; feeling better but still with tenderness; Physical Examination - Physical Exam General: Alert, Oriented x3, Cooperative Respiratory: Clear to auscultation bilaterally, Normal air movement Cardiovascular: Normal pulses, Regular rate/rhythm, Normal S1 S2 Gastrointestinal: Normal bowel sounds, Soft and benign, Non-distended Integumentary: Dressing: C/D/I Neurological: Normal gait, Normal speech, Normal tone, Normal affect Assessment and Plan - Assessment 1. Cat bite with cellulitis of the right hand s/p I&D; 2. Anxiety disorder\depression. - Plan 1. POD #1. Continue antibiotics. Closure on Tuesday 2. Continue citalopram 3. GI/DVT prophylaxis
--- NOTE | 2022-07-24 04:15 | P.PN ---
Date of Service: 07/22/22 Subjective: Patient still with pain and decreased ROM of digits of the right hand; to OR for I&D of abscess Physical Examination - Physical Exam General: Alert, Oriented x3, Cooperative Respiratory: Clear to auscultation bilaterally, Normal air movement Cardiovascular: Normal pulses, Regular rate/rhythm, Normal S1 S2 Gastrointestinal: Normal bowel sounds, Soft and benign, Non-distended Integumentary: No warmth, Tenderness/swelling, Erythema, Warmth of the right hand Neurological: No focal deficits; numbness in the right hand Assessment and Plan - Assessment/Plan --Cat bite. Continue antibiotics. Hand surgeon possible I&D today. --Right hand cellulitis. Blood cultures pending. Continue antibiotics. --Anxiety disorder\depression. Continue home medication. --DVT prophylaxis with SCDs.
[2022-07-24 05:57] LABS: Absolute Lymphocytes (CBC) 3.9 K/uL (0.7-4.9); Hematocrit 36.5 % (36.0-45.0); Lymphocytes % 45.6 % (15.3-44.8); MCV 89.7 fL (80-100); MPV 8.6 fL (7.6-11.3); RBC Red Blood Cell Count 4.07 M/uL (3.86-4.86)
[2022-07-24 06:10] LABS: Potassium 3.8 mmol/L (3.5-5.1)
[2022-07-24] MEDS: KETOROLAC 30 MG/ML INJ IV PRN ×3 (06:18→22:27)
--- NOTE | 2022-07-24 07:11 | P.PN ---
Date of Service: 07/24/22 Subjective: Patient with no new c/o; continuing to improve; POD #2 Physical Examination - Physical Exam General: Alert, Oriented x3, Cooperative Respiratory: Clear to auscultation bilaterally, Normal air movement Cardiovascular: Normal pulses, Regular rate/rhythm, Normal S1 S2 Gastrointestinal: Normal bowel sounds, Soft and benign, Non-distended Integumentary: No warmth, Tenderness/swelling, Erythema, Warmth of the right hand Neurological: No focal deficits; numbness in the right hand Assessment and Plan - Assessment 1. Cat bite with cellulitis of the right hand s/p I&D; 2. Anxiety disorder\depression. - Plan 1. POD #2. Continue antibiotics. Closure on Tuesday 2. Continue citalopram 3. GI/DVT prophylaxis
[2022-07-24] MEDS ORDERED: POTASSIUM CL SA 10 MEQ TAB PO ONE (09:00)
[2022-07-24] MEDS: CITALOPRAM 10 MG TABLET PO SCH (09:08)
[2022-07-24] MEDS: CODEINE 30MG/APAP 300MG TAB PO PRN (09:11)
[2022-07-25] MEDS: AMPICILLIN/SULBACT 3 GM in NA CHLORIDE 0.9% 100 ML IV SCH ×3 (00:20→17:58)
[2022-07-25] MEDS: CITALOPRAM 10 MG TABLET PO SCH (08:50)
[2022-07-25] MEDS: KETOROLAC 30 MG/ML INJ IV PRN (10:45)
[2022-07-25] MEDS: CODEINE 30MG/APAP 300MG TAB PO PRN ×2 (13:07→21:06)
[2022-07-25] MEDS ORDERED: MORPHINE 2 MG/ML SYR IV PRN (13:25)
[2022-07-25] MEDS: CIPROFLOXACIN 400mg IV 400 MG/200 ML BAG IV SCH ×2 (16:20→21:01)
--- NOTE | 2022-07-25 19:09 | P.PN ---
Date of Service: 07/25/22 Subjective: Patient continues to improve. Postop day #3. Scheduled for closure in the morning. Physical Examination - Physical Exam General: Alert, Oriented x3, Cooperative Respiratory: Clear to auscultation bilaterally, Normal air movement Cardiovascular: Normal pulses, Regular rate/rhythm, Normal S1 S2 Gastrointestinal: Normal bowel sounds, Soft and benign, Non-distended Integumentary: No warmth, Tenderness/swelling, dressing over the right hand Neurological: No focal deficits; numbness improved Assessment and Plan - Assessment 1. Cat bite with cellulitis of the right hand s/p I&D; 2. Anxiety disorder\depression. - Plan 1. POD #3. Continue antibiotics. Closure in AM; oral abx; cipr vs augmentin at DC 2. Continue citalopram 3. GI/DVT prophylaxis
[2022-07-26 00:37] VITALS: BMI 37.8
[2022-07-26] MEDS: CODEINE 30MG/APAP 300MG TAB PO PRN ×2 (01:23→13:16)
[2022-07-26] MEDS: AMPICILLIN/SULBACT 3 GM in NA CHLORIDE 0.9% 100 ML IV SCH ×2 (01:24→08:03)
[2022-07-26 06:45] LABS: Absolute Lymphocytes (CBC) 2.9 K/uL (0.7-4.9); Lymphocytes % 40.7 % (15.3-44.8); MCV 89.6 fL (80-100); RBC Red Blood Cell Count 4.35 M/uL (3.86-4.86)
[2022-07-26 07:00] LABS: Potassium 3.6 mmol/L (3.5-5.1)
[2022-07-26] MEDS: CITALOPRAM 10 MG TABLET PO SCH (07:59)
[2022-07-26] MEDS ORDERED: Ringers Lactate 1,000 ML IV ONE (08:33)
[2022-07-26] MEDS ORDERED: FENTANYL CITR 100 MCG/2 ML ONE (08:43)
[2022-07-26] MEDS ORDERED: dexAMETHasone 10 MG/ML VIAL ONE (08:43)
[2022-07-26] MEDS ORDERED: MIDAZOLAM HCL 2 MG/2 ML INJ ONE (08:43)
[2022-07-26] MEDS ORDERED: LIDOCAINE 2% MPF 5 ML VIAL ONE (08:43)
[2022-07-26] MEDS ORDERED: KETOROLAC 30 MG/ML INJ ONE (08:43)
[2022-07-26] MEDS ORDERED: ONDANSETRON 4 MG/2 ML VIAL ONE (08:43)
[2022-07-26] MEDS ORDERED: propofoL 200 MG/20 ML VIAL IV ONE (08:43)
[2022-07-26] MEDS: CIPROFLOXACIN 400mg IV 400 MG/200 ML BAG IV SCH (08:54)
[2022-07-26] MEDS ORDERED: EPHEDRINE SULF 50 MG/ML VIAL ONE (09:31)
[2022-07-26 10:15] VITALS: O2SAT 100
--- NOTE | 2022-07-26 11:01 | OP ---
Surgeon: Tate Vasquez MD Preoperative Diagnosis: Open wounds of the right hand. Postoperative Diagnosis: Open wounds of the right hand. Procedure Performed: Debridement of skin and subcutaneous tissue. Simple closure of 1 cm, flap clos ure. Anesthesia: General. Procedure In Detail: After satisfactory induction of general anesthesia, the right hand was prepped with Betadine scrub, Betadine paint, dry sterile drapes placed applied in usual manner. Arm was elev ated, exsanguinated with Esmarch. Tourniquet was inflated to 250 mmHg. Hand placed on a roll lock t able. The wounds were debrided with curette, forceps scissors and jet lavaged and irrigated with 3 L of dilute Betadine solution. The small wound was closed with 4-0 Prolene in vertical mattress. Lar ge wound was closed by advancing the flaps, closed with 4-0 Prolene vertical mattress sutures. Dress ed with Xeroform and Kerlix. The patient tolerated the procedure well and returned to recovery. AGATHA/NATASHA Voice ID: [id number] Report ID: [id number]
[2022-07-26 12:03] VITALS: BP 113/53; TEMP 97.9
--- NOTE | 2022-07-26 12:24 | P.DS ---
Admission Date: 07/21/22 Discharge Date: 07/26/22 Disposition: ROUTINE DISCHARGE Discharge Condition: GOOD Reason for Admission: Cat bite Consultations: 1. Hand Surgery Procedures: - 07/22/2022: Debridement of skin, subcu tissue; release of the extensor tendon sheath - 07/26/2022: Debridement of skin and subcutaneous tissue. Simple closure of 1 cm, flap closure. Hospital Course: DIAGNOSES: # Right Hand Cellulitis secondary to an Infected Cat Bite # Tobacco Use Disorder # Anxiety # Depression # Microscopic Hematuria HOSPITAL COURSE: Ms. Debra Weber is a 42 year old female with a past medical history significant for anxiety, depression, and tobacco use disorder who was admitted to the [facility] on 07/21/2022 for right hand cellulitis due to an infected cat bite. She was admitted to the Medicine service and started on IV antibiotics. Hand Surgery was consulted and she was evaluated by Dr. Vasquez. On 07/22/2022, she underwent debridement of the right hand skin and subcuteneous tissue and release of the extensor tendon sheath. She was monitored in the hospital, and on 07/26/2022, she underwent right hand skin and subcutaneous debridement with simple 1 cm flap closure. She tolerated the procedure well, without any apparent complications. I spoke with Dr. Vasquez following the procedure and he has cleared her for discharge. He recommended 14 additional days of amoxicillin- clavulanate and Tylenol #3. He has scheduled her for an outpatient follow-up in his clinic on 08/03/2022. I have counseled her on these findings as well as on her microscopic hematuria. I advised that she follow-up with her PCP for further evaluation. She believes that her microscopic hematuria may be secondary to her menses, which is certainly a possibility. She was offered a Tdap vaccine, but declined as she states that she has received one recently. On 07/26/2022, she was seen on rounds and deemed medically stable for discharge. She was discharged with instructions to schedule follow-up appointments with her PCP in 3-5 days and to attend her follow-up appointment with Dr. Vasquez (Hand Surgery) on 08/03/2022. She was provided prescriptions for amoxicillin- clavulanate and Tylenol #3. She was given the opportunity to ask questions and reported no further questions. Furthermore, all questions were answered to the best of my ability. Prior to the controlled-substance prescription, a PDMP review was conducted. Over the last 1 year, she has received 0 prescriptions from 0 providers to 0 p harmacies. Her opioid overdose risk score is 0. A copy of this discharge summary will be sent to the above providers to facilitate continuity of care. Today, I personally spent 25 minutes on her case, of which greater than 50% of the time was spent in patient education, counseling, and coordination of care as described above. Vital Signs/Physical Exam: Temp Pulse Resp BP Pulse Ox 97.9 F 71 14 113/53 L 96 07/26/22 12:00 07/26/22 12:00 07/26/22 12:00 07/26/22 12:00 07/26/22 12:00 General: Alert, In no apparent distress, Oriented x3 HEENT: Atraumatic, PERRLA, Mucous membr. moist/pink, EOMI, Sclerae nonicteric Neck: Supple, JVD not distended Respiratory: Clear to auscultation bilaterally, Normal air movement Cardiovascular: No edema, Regular rate/rhythm, Normal S1 S2, No gallops, No rubs, No murmurs Capillary refill: <2 Seconds Gastrointestinal: Normal bowel sounds, Soft and benign, Non-distended, No tenderness, No rebound, No guarding Musculoskeletal: Other (right hand is in surgical dressing. Surrounding area is clean, dry, and intact) Integumentary: No rashes Neurological: Normal speech, Cranial nerves 3-12 intact, Normal affect Laboratory Data at Discharge: WBC 7.10 K/uL (4.3-10.9) 07/26/22 06:01 Hgb 13.5 g/dL (12.0-15.0) 07/26/22 06:01 Hct 39.0 % (36.0-45.0) 07/26/22 06:01 Plt Count 224 K/uL (152-406) 07/26/22 06:01 PT 11.9 SECONDS (9.5-12.5) 07/21/22 18:52 INR 1.08 07/21/22 18:52 Sodium 140 mmol/L (136-145) 07/26/22 06:01 Potassium 3.6 mmol/L (3.5-5.1) 07/26/22 06:01 BUN 15 mg/dL (7-18) 07/26/22 06:01 Creatinine 0.82 mg/dL (0.55-1.3) 07/26/22 06:01 Glucose 95 mg/dL (74-106) 07/26/22 06:01 Phosphorus 3.3 mg/dL (2.5-4.9) 07/21/22 16:44 Magnesium 2.0 mg/dL (1.8-2.4) 07/21/22 16:44 Total Bilirubin 0.2 mg/dL (0.2-1.0) 07/21/22 16:44 AST 14 U/L (15-37) L 07/21/22 16:44 ALT 22 U/L (12-78) 07/21/22 16:44 Alkaline Phosphatase 82 U/L (45-117) 07/21/22 16:44 Triglycerides 121 mg/dL (<150) 07/21/22 16:44 Cholesterol 162 mg/dL (<200) 07/21/22 16:44 HDL Cholesterol 37 mg/dL (40-60) L 07/21/22 16:44 Cholesterol/HDL Ratio 4.38 07/21/22 16:44 Home Medications: Citalopram Hydrobromide [Celexa] 1 tab PO DAILY 04/15/20 Lactobacillus Acidophilus [Probiotic] 1 tab PO DAILY 07/21/22 Amox/Clavulanate [Augmentin 875-125 Tab] 875 mg PO BID 14 Days #28 tab 07/26/22 Codeine/APAP [Tylenol #3*] 1 tab PO Q6H PRN 3 Days #12 tab 07/26/22 New Medications: Amox/Clavulanate [Augmentin 875-125 Tab] 875 mg PO BID 14 Days #28 tab Codeine/APAP [Tylenol #3*] 1 tab PO Q6H PRN 3 Days #12 tab PRN Reason: Pain Scale 8-10 (Severe) Physician Discharge Instructions: 1. Please schedule a follow-up appointment with your PCP in 3-5 days 2. Please attend your scheduled follow-up appointment with Dr. Vasquez on 08/03/2022 Diet: Regular Activity: Ad amina Followup: Tate Vasquez MD [ACTIVE - CAN ADMIT] - NONE,NONE [Primary Care Provider] - Time spent managing pt's care (in minutes): 25
== END 2022-07-26 13:28 | disposition home or self-care (01) | DRG 581 ==
LOC: ER 15:14 → ERHOLD 16:57 → 4TH 20:19 → OBSVTOIN 07-22 14:55
PROVIDERS: ADMIT Hospitalist; ATTEND Internal Medicine
PROC: 0JDJ0ZZ Extraction of Right Hand Subcutaneous Tissue and Fascia, Open Approach (ICD-10-PCS; 2022-07-22)
PROC: 0LN70ZZ Release Right Hand Tendon, Open Approach (ICD-10-PCS; principal; 2022-07-22 13:30)
PROC: 0JDJ0ZZ Extraction of Right Hand Subcutaneous Tissue and Fascia, Open Approach (ICD-10-PCS; 2022-07-26)
DX: L03.113 Cellulitis of right upper limb (principal); F32.A Depression, unspecified; F41.9 Anxiety disorder, unspecified; E87.6 Hypokalemia; F17.200 Nicotine dependence, unspecified, uncomplicated; E66.09 Other obesity due to excess calories; R31.29 Other microscopic hematuria; Z68.37 Body mass index [BMI] 37.0-37.9, adult; Z88.1 Allergy status to other antibiotic agents; Z88.5 Allergy status to narcotic agent; Z79.899 Other long term (current) drug therapy; Z20.822 Contact with and (suspected) exposure to COVID-19; W55.01XA Bitten by cat, initial encounter; Y93.9 Activity, unspecified; Y92.9 Unspecified place or not applicable
CPT/HCPCS: 36415; 80048; 80053; 80061; 81001; 81025; 82550; 83036; 83605; 83735; 84100; 85025; 85610; 87040; 87070; 87075; 87205; 87811; 88304; 96365; 96375; 99285; G0378; J0295; J0744; J1100; J1170; J1200; J2001; J2250; J2405; J2704; J3010; J7030; J7120